=== PATIENT | male | born 1940 | race Caucasian/White ===

== ENCOUNTER → 2016-05-21 | Outpatient (CLI) | payer BC, OTHER ==
[~2016-05-21] MED LIST: ACET325T30 PO; ARFO15NE NEB; BISA10SU5 PR; BRVIN INH; FINA5TAB PO; IPRASOL4 INH; METO25TA56 PO; MIRT15TA3 PO; MOML PO; OXGN; PRED1SUS3 OPL; SODIENE PR; SPRIN/30 INH; TAMS0.4C38 PO; TIOTCAP INH; [UNRECOGNIZED DRUG - OTHER] PO
[2016-05-21 08:55] LABS: URINE APPEARANCE TURBID (CLEAR); URINE BILIRUBIN NEG (NEG); URINE COLOR DK YELLOW; URINE NITRITE POS (NEG); URINE SPECIFIC GRAVITY 1.018 (1.000-1.030); UROBILINOGEN NEG (NEG)
[2016-05-21 08:59] LABS: MANUAL MICROSCOPIC REQUIRED? NO; REVIEW REQ? YES
[2016-05-21 09:32] LABS: URINE EPITHELIAL CELL AUTO 0-5 /lpf (0-5)
== END ==
LOC: C.LABCC 08:16
PROVIDERS: ATTEND Internal Medicine
DX: R41.82 Altered mental status, unspecified (principal)

== ENCOUNTER → 2016-06-04 | Outpatient (CLI) | payer BC, OTHER ==
[2016-06-04 18:56] LABS: URINE APPEARANCE TURBID (CLEAR); URINE BILIRUBIN NEG (NEG); URINE COLOR RED; URINE EPITHELIAL CELL AUTO >30 /lpf (0-5); URINE NITRITE NEG (NEG); URINE SPECIFIC GRAVITY 1.012 (1.000-1.030); UROBILINOGEN NEG (NEG)
[2016-06-04 19:01] LABS: MANUAL MICROSCOPIC REQUIRED? NO; REVIEW REQ? YES
== END ==
LOC: C.LABCC 17:55
PROVIDERS: ATTEND Internal Medicine
DX: R41.82 Altered mental status, unspecified (principal)

== ENCOUNTER 2016-06-15 17:52 | Inpatient (IN) | payer BC, OTHER ==
[2016-06-15] VITALS (7 sets, daily range): BP systolic 90; BP diastolic 57; PULSE 98–123; O2SAT 95–98
[~2016-06-15] VITALS: Ht 165.1 cm; Wt 46.1 kg
[~2016-06-15 17:52] MED LIST changes: -ARFO15NE NEB; -BISA10SU5 PR; -MOML PO; -PRED1SUS3 OPL; -SODIENE PR; -SPRIN/30 INH
[2016-06-15] MEDS ORDERED: SODIUM CHLORIDE 0.9% 1000ML 1,000 ML IV STA ×3 (18:02→18:27)
[2016-06-15] MEDS ORDERED: XYLOCAINE 1%/SOD BICARB 20 ML VIAL INFIL ONE (18:06)
--- NOTE | 2016-06-15 18:10 | DIAGNOSTIC IMAGING REPORT ---
SINGLE VIEW CHEST CLINICAL HISTORY: Dyspnea. FINDINGS: An AP, portable, upright chest radiograph is compared to study dated 09/09/2015 and correlated with chest CT dated 05/19/2014. The examination is degraded by portable technique and patient rotation. The cardiomediastinal silhouette is unremarkable. There is atherosclerotic calcification of the thoracic aorta. Advanced emphysema is identified. Large blebs are noted in the upper lobes, right greater than left. This is similar to previous. Suture material projects over the left upper lobe. Patchy airspace consolidation is identified at the medial right lung base. There is chronic elevation of left hemidiaphragm with left basilar atelectasis. Biapical scarring is observed. No pneumothorax is seen. The skeletal structures are osteopenic. The bony thorax is grossly intact. Chronic calcifications are again seen projecting over the right humeral shaft. IMPRESSION: 1. There is patchy airspace consolidation at the right lung base, likely representing an infectious/inflammatory pneumonitis. Clinical correlation will be required. Radiographic follow-up to resolution is recommended. 2. Advanced emphysema. Electronically signed by: Raz Lezama M.D. 06/15/2016 6:08 PM Dictated Date/Time: 06/15/2016 6:06 PM
[2016-06-15] MEDS ORDERED: PIPERACILLIN/TAZOBACTAM 4.5 GM/100ML D5W IV STA (18:11)
[2016-06-15] MEDS ORDERED: ALBUTEROL 0.083% NEBU SOLN 3 ML VIAL INH STA (18:11)
[2016-06-15] MEDS ORDERED: METHYLPREDNISOLONE 125 MG VIAL IV STA (18:13)
[2016-06-15] MEDS ORDERED: VANCOMYCIN INJ 1,000 MG in SODIUM CHLORIDE 0.9% 250ML 250 ML IV STA (18:27)
[2016-06-15 18:59] LABS: HEMATOCRIT 35.4 % (42-52); MEAN CELL VOLUME 88.3 fL (80-100); MEAN CORPUSCULAR HEMOGLOBIN 28.7 pg (25-34); MEAN CORPUSCULAR HGB CONC 32.5 g/dl (32-36); PLATELET COUNT 247 K/uL (130-400); RED BLOOD COUNT 4.01 M/uL (4.7-6.1); WHITE BLOOD COUNT 20.86 K/uL (4.8-10.8)
[2016-06-15 19:07] LABS: VEN BLOOD GAS BASE EXCESS -4.1 mmol/L; VENOUS BLOOD GAS PCO2 53 mmHg (38.0-50.0); VENOUS BLOOD GAS PO2 28 mmHg
[2016-06-15 19:08] LABS: VEN BLD GAS O2 SATURATION < 60.0 %
[2016-06-15 19:09] LABS: INR 1.2 (0.9-1.1); PARTIAL THROMBOPLASTIN RATIO 1.1; PROTHROMBIN TIME (PATIENT) 12.6 SECONDS (9.0-12.0)
[2016-06-15] MEDS ORDERED: ARFO15NE NEB (19:12)
[2016-06-15] MEDS ORDERED: PRED1SUS3 OPL (19:12)
[2016-06-15] MEDS ORDERED: SPRIN/30 INH (19:12)
[2016-06-15] MEDS ORDERED: SODIENE PR (19:12)
[2016-06-15] MEDS ORDERED: MOML PO (19:12)
[2016-06-15] MEDS ORDERED: BISA10SU5 PR (19:12)
[2016-06-15] MEDS ORDERED: ASPIRIN 300 MG SUPP PR PRN (19:15)
[2016-06-15 19:19] LABS: ALB/GLOB RATIO 0.6 (0.9-2); ALKALINE PHOSPHATASE 160 U/L (45-117); ALT/SGPT 7 U/L (12-78); AST/SGOT 11 U/L (15-37); BASO % 0.1 %; BASO ABS # 0.02 K/uL (0-0.2); BLOOD UREA NITROGEN 57 mg/dl (7-18); BUN/CREATININE RATIO 40.4 (10-20); CARBON DIOXIDE 26 mmol/L (21-32); CHLORIDE 101 mmol/L (98-107); COMPLETE YES; ECHINOCYTES 2+; GLUCOSE 154 mg/dl (70-99); IG% 0.4 %; LYMPH % 4.5 %; LYMPH ABS # 0.94 K/uL (1.2-3.4); MONO % 8.1 %; NEUT % 86.9 %; POTASSIUM 4.1 mmol/L (3.5-5.1); SODIUM 139 mmol/L (136-145)
[2016-06-15] MEDS ORDERED: VANCOMYCIN 1GM/270ML NSS ONE (19:21)
[2016-06-15] MEDS ORDERED: NITROGLYCERIN 0.4 MG SL PER TAB CHARGE SL PRN (19:45)
[2016-06-15] MEDS ORDERED: LORAZEPAM 0.5 MG TAB PO PRN (19:45)
[2016-06-15] MEDS ORDERED: ACETAMINOPHEN 325 MG TAB PO PRN (19:45)
[2016-06-15 20:09] LABS: URINE APPEARANCE CLOUDY (CLEAR); URINE BILIRUBIN NEG (NEG); URINE COLOR YELLOW; URINE EPITHELIAL CELL AUTO >30 /lpf (0-5); URINE NITRITE NEG (NEG); URINE SPECIFIC GRAVITY 1.018 (1.000-1.030); UROBILINOGEN NEG (NEG)
[2016-06-15 20:10] LABS: MANUAL MICROSCOPIC REQUIRED? NO; REVIEW REQ? YES
--- NOTE | 2016-06-15 20:49 | History and Physical ---
History & Physical Date & Time of Service: Jun 15, 2016 at 20:32 Chief Complaint: SOB Primary Care Physician: Deidra Gatica History of Present Illness Source: patient 76 y/o M w/Hx advanced COPD, neurofibromatosis, BPH w/retention and chronic Juares. Presents from a nursing facility with a CC of SOB. Pt was notably hypoxic, hypotensive and lethargic on arrival to the ER. He required Bipap to maintain oxygenation. Initial CXR is consistent with a RLL pneumonia. His BP did respond to IVF however he appears progressively lethargic and will be transferred to the ICU for further management. He is awake and nods his head but is otherwise unable to contribute to the HPI/ROS at the time of admission. Initial labs reveal leukocytosis and ARF. ABG reveals mixed acidosis. Past Medical/Surgical History Medical Problems: (1) Enlarged prostate Status: Chronic (2) Neurofibromatosis, Unspecified Status: Chronic (3) Personal History Of Poliomyelitis Status: Resolved 4) Advanced COPD 5) Pneumothorax 6) Urinary retention with a Chronic Juares 7) L VATS and pleurodesis 04/16 8) R eye cataract surgery 9) Pancreatic mass 10/14 biopsy revealed benign pathology Family History Heart disease Social History Smoking Status: Former Smoker Drug Use: none Marital Status: single Housing status: lives alone Occupational Status: retired Multi-Drug Resistant Organisms History of MDRO: No Allergies Coded Allergies: No Known Allergies (Verified , 06/15/16) Home Medications Scheduled Arformoterol Tartrate (Brovana), 1 VIAL NEB BID Metoprolol Tartrate (Lopressor) (Lopressor), 12.5 MG PO QAM Mirtazapine (Remeron), 7.5 MG PO HS Prednisolone Acetate (Ophth) (Pred Forte 1% Oph), 1 DROPS OPL BID Tiotropium Orange (Spiriva Handihaler), 1 CAP INH DAILY Scheduled PRN Acetaminophen (Acetaminophen), 2 TAB PO Q6 PRN for Pain or Fever Bisacodyl (Bisacodyl), 1 SUPP UT UD PRN for Constipation Magnesium Hydroxide (Milk Of Magnesia), 30 ML PO UD PRN for Constipation Sodium Phosphate/Biphosphate (Fleet Enema), 1 EA UT UD PRN for Constipation Review of Systems C/O SOB prior to arrival - unable to reliably obtain a ROS at present Respiratory: + dyspnea at rest, + dyspnea on exertion, + shortness of breath, + wheezing Physical Exam Vital Signs Date Time Temp Pulse Resp B/P Pulse Ox O2 Delivery O2 Flow Rate FiO2 06/15/16 20:06 117 22 103/63 96 BiPAP 06/15/16 19:46 119 24 105/68 96 BiPAP 06/15/16 19:00 125 22 103/100 96 Ambu-Bag 06/15/16 18:53 124 22 99/66 96 BiPAP 06/15/16 18:37 123 96 50 06/15/16 18:35 123 18 96 BiPAP/CPAP 50 06/15/16 18:05 96 Non-Rebreather 15.0 06/15/16 18:02 136 06/15/16 17:51 83 Room Air 06/15/16 17:51 36.8 135 32 111/67 94 Non-Rebreather 15.0 General Appearance: + pertinent finding (Lethargic, poorly nourished, elderly male - no apparent distress on an NRB) Head: normocephalic Eyes: normal inspection, PERRL, EOMI ENT: normal ENT inspection, pharynx normal Neck: supple, no adenopathy, + JVD (Impressive b/l JVD) Respiratory/Chest: chest non-tender, + pertinent finding (Very poor b/l air entry - cannnot appreciate air movemtn on L base) Cardiovascular: no edema, no gallop, + JVD, + tachycardia, + systolic murmur Abdomen/GI: normal bowel sounds, non tender, soft Back: normal inspection, no CVA tenderness Extremities/Musculoskelatal: normal inspection, no calf tenderness, normal capillary refill, no pedal edema, normal range of motion Neurologic/Psych: + disoriented, + pertinent finding (Pt is lethargic without unilateral or focal defecits) Skin: normal color, warm/dry Diagnostics Laboratory Results Results Past 24 Hours Test 06/15/16 18:33 06/15/16 18:42 06/15/16 19:50 Range/Units White Blood Count 20.86 4.8-10.8 K/uL Red Blood Count 4.01 4.7-6.1 M/uL Hemoglobin 11.5 14.0-18.0 g/dL Hematocrit 35.4 42-52 % Mean Corpuscular Volume 88.3 80-100 fL Mean Corpuscular Hemoglobin 28.7 25-34 pg Mean Corpuscular Hemoglobin Concent 32.5 32-36 g/dl Platelet Count 247 130-400 K/uL Mean Platelet Volume 9.0 7.4-10.4 fL Neutrophils (%) (Auto) 86.9 % Lymphocytes (%) (Auto) 4.5 % Monocytes (%) (Auto) 8.1 % Eosinophils (%) (Auto) 0.0 % Basophils (%) (Auto) 0.1 % Neutrophils # (Auto) 18.11 1.4-6.5 K/uL Lymphocytes # (Auto) 0.94 1.2-3.4 K/uL Monocytes # (Auto) 1.70 0.11-0.59 K/uL Eosinophils # (Auto) 0.01 0-0.5 K/uL Basophils # (Auto) 0.02 0-0.2 K/uL RDW Standard Deviation 53.7 36.4-46.3 fL RDW Coefficient of Variation 16.6 11.5-14.5 % Immature Granulocyte % (Auto) 0.4 % Immature Granulocyte # (Auto) 0.08 0.00-0.02 K/uL Echinocytes 2+ Prothrombin Time 12.6 9.0-12.0 SECONDS Prothromb Time International Ratio 1.2 0.9-1.1 Activated Partial Thromboplast Time 28.9 21.0-31.0 SECONDS Partial Thromboplastin Ratio 1.1 Sodium Level 139 136-145 mmol/L Potassium Level 4.1 3.5-5.1 mmol/L Chloride Level 101 98-107 mmol/L Carbon Dioxide Level 26 21-32 mmol/L Anion Gap 12.0 3-11 mmol/L Blood Urea Nitrogen 57 7-18 mg/dl Creatinine 1.40 0.60-1.40 mg/dl Est Creatinine Clear Calc Drug Dose 30.5 ml/min Estimated GFR () 56.2 Estimated GFR (Non- 48.5 BUN/Creatinine Ratio 40.4 10-20 Random Glucose 154 70-99 mg/dl Calcium Level 8.0 8.5-10.1 mg/dl Total Bilirubin 1.1 0.2-1 mg/dl Aspartate Amino Transf (AST/SGOT) 11 15-37 U/L Alanine Aminotransferase (ALT/SGPT) 7 12-78 U/L Alkaline Phosphatase 160 45-117 U/L Troponin I < 0.015 0-0.045 ng/ml Pro-B-Type Natriuretic Peptide 2200 0-1800 pg/ml Total Protein 6.6 6.4-8.2 gm/dl Albumin 2.4 3.4-5.0 gm/dl Globulin 4.2 2.5-4.0 gm/dl Albumin/Globulin Ratio 0.6 0.9-2 Venous Blood pH 7.26 7.36-7.41 Venous Blood Partial Pressure CO2 53 38.0-50.0 mmHg Venous Blood Partial Pressure O2 28 mmHg Venous Blood HCO3 23 mmol/L Venous Blood Oxygen Saturation < 60.0 % Venous Blood Base Excess -4.1 mmol/L Urine Color YELLOW Urine Appearance CLOUDY CLEAR Urine pH 5.0 4.5-7.5 Urine Specific [place] 1.018 1.000-1.030 Urine Protein NEG NEG Urine Glucose (UA) NEG NEG Urine Ketones NEG NEG Urine Occult Blood 2+ NEG Urine Nitrite NEG NEG Urine Bilirubin NEG NEG Urine Urobilinogen NEG NEG Urine Leukocyte Esterase MODERATE NEG Urine WBC (Auto) 10-30 0-5 /hpf Urine RBC (Auto) 5-10 0-4 /hpf Urine Hyaline Casts (Auto) 1-5 0-5 /lpf Urine Epithelial Cells (Auto) >30 0-5 /lpf Urine Bacteria (Auto) NEG NEG Urine Renal Epithelial Cells 0-5 /lpf Urine Yeast (Auto) BUDDING NONE PRSENT Diagnostic Radiology 1. There is patchy airspace consolidation at the right lung base, likely representing an infectious/inflammatory pneumonitis. Clinical correlation will be required. Radiographic follow-up to resolution is recommended. 2. Advanced emphysema. EKG sinus tach - low voltage Impression Assessment and Plan 76 y/o M w/Hx advanced COPD, neurofibromatosis, BPH w/retention and chronic Juares. Presents from a nursing facility with a CC of SOB. Pt was notably hypoxic, hypotensive and lethargic on arrival to the ER. He required Bipap to maintain oxygenation. Initial CXR is consistent with a RLL pneumonia. His BP did respond to IVF however he appears progressively lethargic and will be transferred to the ICU for further management. He is awake and nods his head but is otherwise unable to contribute to the HPI/ROS at the time of admission. Initial labs reveal leukocytosis and ARF. ABG reveals acidosis - mostly respiratory. 1) Pneumonia, - hypoxia and possible sepsis - Pt was hypotensive on arrival and initially has responded to an IVF bolus. He has underlying advanced COPD and a low reserve. We have placed him on sepsis coverage pending cultures and he will be transferred to the ICU. Pt is on Bipap on admission. 2) Advanced COPD - Due to his hypoxia and low reserve we will treat for exacerbation - provided with nebs and steroids. 3) Hypotension - Pt is clinically dehydrated and may be septic. Clinically however he has impressive JVD and his EKG is low voltage compared to previous. We will obtain a CT chest as he has a history of blebs and pneumothorax - we may need an urgent echo if hypotension recurs to evaluate for tamponade. 4) BPH - retention - Juares in place - UA results pending 5) ARF - suspect prerenal - IVF and trend BMP DNR/DNI confirmed with previous records and next of kin - Heparin prophylaxis Discussed with listed next of kin who pt refers to as daughter - however they are not technically related Total time for this admit including review of labs, records, imaging, EKG - discussion with pt/contact, mural painter and ER MD - includes critical care time 55 min Level of Care Critical Care Resuscitation Status DO NOT RESUSCITATE VTE Prophylaxis VTE Risk Assessment Done? Y/N: Yes Risk Level: Moderate Given or contraindicated: Unfractionated heparin SQ
[2016-06-15] MEDS ORDERED: VANCOMYCIN INJ 1,000 MG in SODIUM CHLORIDE 0.9% 250ML 250 ML IV SCH (21:00)
[2016-06-15] MEDS ORDERED: PIPERACILL/TAZOBAC CONSULT ACTIVE PRN (21:15)
[2016-06-15] MEDS ORDERED: ALBUTEROL 0.083% NEBU SOLN 3 ML VIAL INH PRN (21:15)
[2016-06-15] MEDS ORDERED: VANCOMYCIN CONSULT ACTIVE PRN (21:15)
[2016-06-15] MEDS: ALBUT/IPRATROP 3MG/0.5MG NEB 3 ML VIAL INH SCH (21:28)
[2016-06-15] MEDS: SODIUM CHLORIDE 0.9% 1000ML 1,000 ML IV SCH (21:47)
[2016-06-15] MEDS: AZITHROMYCIN IV 500 MG in DEXTROSE 5% 250ML 250 ML IV SCH (21:47)
--- NOTE | 2016-06-15 22:28 | DIAGNOSTIC IMAGING REPORT ---
CT SCAN OF THE CHEST WITHOUT IV CONTRAST CLINICAL HISTORY: Dyspnea. COMPARISON STUDY: Chest x-ray dated 06/15/2016. Chest CT dated 05/19/2014. TECHNIQUE: CT scan of the thorax was performed from the thoracic inlet to the upper abdomen. Images are reviewed in the axial, sagittal, and coronal planes. IV contrast was not administered for this examination as per the front clinician. The examination is significantly degraded by motion artifact, as well as by streak artifact from the patient's arms which could not be elevated above the chest. CT DOSE: 291.65 mGy.cm FINDINGS: Thyroid: Atrophic. Thoracic aorta: The thoracic aorta is normal in caliber and demonstrates standard 3-vessel arch anatomy. Heart: The heart is normal in size noting a small pericardial effusion. The coronary arteries are densely calcified. Lungs and pleural spaces: Advanced emphysema is identified and there is apical bullous change, right greater than left. There are small pleural effusions with patchy bibasilar airspace consolidation, right greater than left. Fluid/debris is noted within the lower lobe airways. Layering fluid is seen in the distal trachea and the mainstem bronchi. Mediastinum: There are scattered mediastinal lymph nodes. Some of these contain coarse calcifications, likely related to remote granulomas infection.. Tena: Not all assessed without IV contrast. There are calcified right hilar lymph nodes. Axillae: There is no axillary lymphadenopathy. Upper abdomen: Intrahepatic biliary ductal dilatation is similar to prior studies. A structure that likely represents a markedly abnormal gallbladder is partially imaged below the liver. Surrounding inflammatory stranding is suggested. Skeletal structures: The skeletal structures are osteopenic. Mild degenerative changes noted throughout the thoracic spine. Chronic changes are again noted in the right humeral shaft. No lytic or blastic bony lesions are seen. Soft tissues: The patient is cachectic. IMPRESSION: 1. Significantly streak and motion artifact degraded examination. 2. Advanced emphysema. 3. There are small pleural effusions with bibasilar airspace consolidation, right greater than left. The appearance is typical for pneumonia/aspiration pneumonitis. Clinical correlation will be required. 4. Fluid/debris is present within the lower lobe airways, and there is layering fluid within the trachea and mainstem bronchi. The appearance is highly concerning for aspiration. 5. A markedly abnormal gallbladder is suggested with surrounding inflammatory change. This is only partially imaged. Correlation with clinical findings and serum bilirubin levels will be required. Follow-up with a right upper quadrant ultrasound is recommended. 6. Additional findings as above. Electronically signed by: Raz Lezama M.D. 06/15/2016 10:26 PM Dictated Date/Time: 06/15/2016 10:18 PM
--- NOTE | 2016-06-15 22:28 | EMERGENCY ROOM VISIT NOTE ---
History Report prepared by Butch: Jeni Keyes Under the Supervision of: Violeta SantosO. First contact with patient: 17:47 Chief Complaint: RESPIRATORY PROBLEMS Stated Complaint: SOB Nursing Triage Summary: patient presents via [facility] with sob and cough patient has reportedly not been feeling well for the last two days denies chest pain right sided breath sounds absent, left sided coarse rhonchi History of Present Illness The patient is a 76 year old male who presents to the Emergency Room with complaints of worsening respiratory problems for the past 3 days. He reports a productive cough and states that he feels very short of breath. He states, "I feel like I can't catch my breath." He also notes that he has been feeling weak for the past few days. The patient denies chest pain, nausea, vomiting, fever, and urinary symptoms. The patient is a resident at [facility]. Today the patient was found to be tachycardic and hypotensive, and he was brought to the ED by ambulance. EMS states that the patient is typically on 4L of O2 but he was desaturating into the 70s, so they increased his oxygen. He was also given fluids, Solu-Medrol, albuterol, and a DuoNeb. Source of History: patient, snf notes, EMS Onset: 3 days ago Position: chest (respiratory) Quality: other (short of breath) Timing: worsening Modifying Factors (Relieving): oxygen Associated Symptoms: + cough, + weakness, No chest pain, No fevers, No nausea, No urinary symptoms, No vomiting Review of Systems See HPI for pertinent positives & negatives. A total of 10 systems reviewed and were otherwise negative. Past Medical & Surgical Medical Problems: (1) Enlarged prostate (2) Neurofibromatosis, Unspecified (3) Personal History Of Poliomyelitis (4) Pneumonia (5) worsening sob, and urinary retention (6) worsening sob, and urinary retention Family History Heart disease Social History Smoking Status: Former Smoker Alcohol Use: none Drug Use: none Marital Status: single Housing Status: lives alone Occupation Status: retired Current/Historical Medications Scheduled Arformoterol Tartrate (Brovana), 1 VIAL NEB BID Metoprolol Tartrate (Lopressor) (Lopressor), 12.5 MG PO QAM Mirtazapine (Remeron), 7.5 MG PO HS Prednisolone Acetate (Ophth) (Pred Forte 1% Oph), 1 DROPS OPL BID Tiotropium [place] (Spiriva Handihaler), 1 CAP INH DAILY Scheduled PRN Acetaminophen (Acetaminophen), 2 TAB PO Q6 PRN for Pain or Fever Bisacodyl (Bisacodyl), 1 SUPP HI UD PRN for Constipation Magnesium Hydroxide (Milk Of Magnesia), 30 ML PO UD PRN for Constipation Sodium Phosphate/Biphosphate (Fleet Enema), 1 EA HI UD PRN for Constipation Allergies Coded Allergies: No Known Allergies (Verified , 06/15/16) Physical Exam Vital Signs Date Time Temp Pulse Resp B/P Pulse Ox O2 Delivery O2 Flow Rate FiO2 06/15/16 20:06 117 22 103/63 96 BiPAP 06/15/16 19:46 119 24 105/68 96 BiPAP 06/15/16 19:00 125 22 103/100 96 Ambu-Bag 06/15/16 18:53 124 22 99/66 96 BiPAP 06/15/16 18:37 123 96 50 06/15/16 18:35 123 18 96 BiPAP/CPAP 50 06/15/16 18:05 96 Non-Rebreather 15.0 06/15/16 18:02 136 06/15/16 17:51 83 Room Air 06/15/16 17:51 36.8 135 32 111/67 94 Non-Rebreather 15.0 Physical Exam GENERAL: alert, ill appearing, cachetic, on non-rebreather, malnourished, significant distress EYE EXAM: normal conjunctiva OROPHARYNX: no exudate, no erythema, lips, buccal mucosa, and tongue normal and mucous membranes are moist NECK: supple, no nuchal rigidity, no adenopathy, non-tender LUNGS: Lung sounds diminished on the right side, rhonchi in the left lower lobe. Normal chest wall mechanics HEART: no murmurs, S1 normal and S2 normal ABDOMEN: abdomen soft, non-tender, normo-active bowel sounds, no masses, no rebound or guarding. BACK: Back is symmetrical on inspection and there is no deformity, no midline tenderness, no CVA tenderness. SKIN: no rashes and no bruising UPPER EXTREMITIES: upper extremities are grossly normal. LOWER EXTREMITIES: No pitting edema. Calves equal bilaterally. NEURO EXAM: Awake, alert, oriented to person but not place. Cranial nerves II- XII grossly intact, normal speech, no gross weakness of arms, no gross weakness of legs. Medical Decision & Procedures ER Provider Diagnostic Interpretation: A repeat ECG reveals sinus tachy at 133 but it has improved from previous. Radiology results as stated below per my review and the radiologist's interpretation: SINGLE VIEW CHEST CLINICAL HISTORY: Dyspnea. FINDINGS: An AP, portable, upright chest radiograph is compared to study dated 09/09/2015 and correlated with chest CT dated 05/19/2014. The examination is degraded by portable technique and patient rotation. The cardiomediastinal silhouette is unremarkable. There is atherosclerotic calcification of the thoracic aorta. Advanced emphysema is identified. Large blebs are noted in the upper lobes, right greater than left. This is similar to previous. Suture material projects over the left upper lobe. Patchy airspace consolidation is identified at the medial right lung base. There is chronic elevation of left hemidiaphragm with left basilar atelectasis. Biapical scarring is observed. No pneumothorax is seen. The skeletal structures are osteopenic. The bony thorax is grossly intact. Chronic calcifications are again seen projecting over the right humeral shaft. IMPRESSION: 1. There is patchy airspace consolidation at the right lung base, likely representing an infectious/inflammatory pneumonitis. Clinical correlation will be required. Radiographic follow-up to resolution is recommended. 2. Advanced emphysema. Electronically signed by: Raz Lezama M.D. 06/15/2016 6:08 PM Dictated Date/Time: 06/15/2016 6:06 PM Laboratory Results 06/15/16 18:33 Red Blood Count 4.01, Mean Corpuscular Volume 88.3, Mean Corpuscular Hemoglobin 28.7, Mean Corpuscular Hemoglobin Concent 32.5, Mean Platelet Volume 9.0, Neutrophils (%) (Auto) 86.9, Lymphocytes (%) (Auto) 4.5, Monocytes (%) (Auto) 8.1, Eosinophils (%) (Auto) 0.0, Basophils (%) (Auto) 0.1, Neutrophils # (Auto) 18.11, Lymphocytes # (Auto) 0.94, Monocytes # (Auto) 1.70, Eosinophils # (Auto) 0.01, Basophils # (Auto) 0.02 06/15/16 18:33 Test 06/15/16 18:33 06/15/16 19:50 White Blood Count 20.86 K/uL (4.8-10.8) Red Blood Count 4.01 M/uL (4.7-6.1) Hemoglobin 11.5 g/dL (14.0-18.0) Hematocrit 35.4 % (42-52) Mean Corpuscular Volume 88.3 fL (80-100) Mean Corpuscular Hemoglobin 28.7 pg (25-34) Mean Corpuscular Hemoglobin Concent 32.5 g/dl (32-36) Platelet Count 247 K/uL (130-400) Mean Platelet Volume 9.0 fL (7.4-10.4) Neutrophils (%) (Auto) 86.9 % Lymphocytes (%) (Auto) 4.5 % Monocytes (%) (Auto) 8.1 % Eosinophils (%) (Auto) 0.0 % Basophils (%) (Auto) 0.1 % Neutrophils # (Auto) 18.11 K/uL (1.4-6.5) Lymphocytes # (Auto) 0.94 K/uL (1.2-3.4) Monocytes # (Auto) 1.70 K/uL (0.11-0.59) Eosinophils # (Auto) 0.01 K/uL (0-0.5) Basophils # (Auto) 0.02 K/uL (0-0.2) RDW Standard Deviation 53.7 fL (36.4-46.3) RDW Coefficient of Variation 16.6 % (11.5-14.5) Immature Granulocyte % (Auto) 0.4 % Immature Granulocyte # (Auto) 0.08 K/uL (0.00-0.02) Echinocytes 2+ Prothrombin Time 12.6 SECONDS (9.0-12.0) Prothromb Time International Ratio 1.2 (0.9-1.1) Activated Partial Thromboplast Time 28.9 SECONDS (21.0-31.0) Partial Thromboplastin Ratio 1.1 Anion Gap 12.0 mmol/L (3-11) Est Creatinine Clear Calc Drug Dose 30.5 ml/min Estimated GFR () 56.2 Estimated GFR (Non- 48.5 BUN/Creatinine Ratio 40.4 (10-20) Calcium Level 8.0 mg/dl (8.5-10.1) Total Bilirubin 1.1 mg/dl (0.2-1) Aspartate Amino Transf (AST/SGOT) 11 U/L (15-37) Alanine Aminotransferase (ALT/SGPT) 7 U/L (12-78) Alkaline Phosphatase 160 U/L (45-117) Troponin I < 0.015 ng/ml (0-0.045) Pro-B-Type Natriuretic Peptide 2200 pg/ml (0-1800) Total Protein 6.6 gm/dl (6.4-8.2) Albumin 2.4 gm/dl (3.4-5.0) Globulin 4.2 gm/dl (2.5-4.0) Albumin/Globulin Ratio 0.6 (0.9-2) Urine Color YELLOW Urine Appearance CLOUDY (CLEAR) Urine pH 5.0 (4.5-7.5) Urine Specific [place] 1.018 (1.000-1.030) Urine Protein NEG (NEG) Urine Glucose (UA) NEG (NEG) Urine Ketones NEG (NEG) Urine Occult Blood 2+ (NEG) Urine Nitrite NEG (NEG) Urine Bilirubin NEG (NEG) Urine Urobilinogen NEG (NEG) Urine Leukocyte Esterase MODERATE (NEG) Urine WBC (Auto) 10-30 /hpf (0-5) Urine RBC (Auto) 5-10 /hpf (0-4) Urine Hyaline Casts (Auto) 1-5 /lpf (0-5) Urine Epithelial Cells (Auto) >30 /lpf (0-5) Urine Bacteria (Auto) NEG (NEG) Urine Renal Epithelial Cells /lpf (0-5) Urine Yeast (Auto) BUDDING (NONE PRSENT) Laboratory results per my review. Medications Administered Medications (Trade) Dose Ordered Sig/Anjum Route Start Time Stop Time Status Last Admin Dose Admin Sodium Chloride 1,000 ml @ 999 mls/hr Q1H1M STAT IV 06/15/16 18:02 06/15/16 19:02 DC 06/15/16 18:23 999 MLS/HR Sodium Chloride (Nss 1000ml) 1,000 ml @ 999 mls/hr Q1H1M STAT IV 06/15/16 18:11 06/15/16 19:11 DC 06/15/16 18:23 999 MLS/HR Piperacillin Sod/ Tazobactam Sod (Zosyn Iv) 4.5 gm NOW STAT IV 06/15/16 18:11 06/15/16 18:12 DC 06/15/16 18:51 4.5 GM Albuterol Sulfate (Ventolin 0.083% 2.5MG/3ML Neb) 5 mg NOW STAT INH 06/15/16 18:11 06/15/16 18:12 DC 06/15/16 18:34 5 MG Methylprednisolone Sodium Succinate 125 mg 125 mg NOW STAT IV 06/15/16 18:13 06/15/16 18:14 DC 06/15/16 18:28 125 MG Sodium Chloride (Nss 1000ml) 1,000 ml @ 999 mls/hr Q1H1M STAT IV 06/15/16 18:27 06/15/16 19:27 DC 06/15/16 19:25 999 MLS/HR Aspirin (Aspirin Supp) 300 mg ONE PRN HI 06/15/16 19:15 06/15/16 21:04 DC 06/15/16 19:25 300 MG Vancomycin HCl (Vancomycin 1gm/ 270ml Nss) 1 gm STK-MED ONCE .ROUTE 06/15/16 19:21 06/15/16 19:22 DC 06/15/16 19:24 1 GM ECG Indication: SOB/dyspnea Rate (beats per minute): 135 Rhythm: sinus tachycardia Findings: Q waves (Inferior), ST depression (Anterior), ST elevation (Inferior) Comparison ECG Date: 09/09/2015 Change: Elevations and depressions are new. ED Course ED COURSE: Vital signs were reviewed and showed hypoxic, tachycardic, hypothermic. The patients medical record was reviewed The above diagnostic studies were performed and reviewed. ED treatments and interventions as stated above. 1748: The patient was evaluated in room B1. A complete history and physical examination was performed. 1802: NSS 1000 ml @ 999 mls/hr IV 180: I updated the patient on the results. 181: Albuterol sulfate 5 mg INH, Zosyn 4.5 gm IV, NSS 1000 ml @ 999 mls/hr IV 181: I spoke with Dr. Virk of cardiology. We discussed the patient's case. He felt that the patient does not need a cath and recommended to treat him medically at this time. 1813: Solu-Medrol 125 mg IV 1827: Vancomycin HCl 1000 mg/Sodium Chloride 270 ml @ 125 mls/hr IV, NSS 1000 ml @ 999 mls/hr IV 1832: The patient is current on BiPAP. He is doing better and I updated him at this time. 1914: Aspirin 300 mg HI 1916: Upon reevaluation, the patient is doing well. I discussed my findings with the patient and he understands and agrees with the treatment plan. Based on the patients age, coexisting illnesses, exam and lab findings the decision to treat as an inpatient was made. The patient remained stable while under my care. The patient will be evaluated for further management. 1930: I spoke with Dr. Ayala. We discussed the patients results and treatment plan. The patient will be evaluated by the [facility] for further management. Medical Decision Differential diagnosis: Etiologies such as viral syndrome, otitis, pharyngitis, pneumonia, influenza, meningitis, urinary tract infection, sepsis, bacteremia, as well as others were entertained. Patient is a 76-year-old male who is brought in from the snf for shortness of breath associated with a productive cough which has been worsening over the past 4 days. He denies any chest pain. He was placed on nonrebreather as he was hypoxic in the 70s. Heart rate was in the 130s. Breath sounds are extremity diminished/absent on the right chest. Stat x-ray was ordered and performed following bedside ultrasound which showed lung sliding on the right. Bedside ultrasound also showed no obvious large precordial effusion although difficult windows. 2 IVs were established is given 2 L normal saline. Systolic pressures improved significantly in the 80s to low 100s. EKG was obtained and showed a inferior STEMI. I discussed this with the on-call clinical rn liaison and due to the hypoxia and rapid heart rate he felt that this was likely rate or demand related. I did place the patient on BiPAP and his history rate improved significant. He was monitored closely on BiPAP and his oxygenation improved significantly. Chest x-ray supports pneumonia. Lactate was elevated at 4.5 and he had a significant leukocytosis of 20,000. He was given IV Zosyn and vancomycin. Patient was admitted to internal medicine with respiratory failure and hypoxia secondary to pneumonia. Consults Time Called: 1808 Consulting Physician: Dr. Virk Returned Call: [address] Virk of cardiology. We discussed the patient's case. He felt that the patient does not need a cath and recommended to treat him medically at this time. Additional Consults: Time Called: 1918 Consulted Physician: Dr. Ayala Returned Call: 1930 Additional Comments: I spoke with Dr. Ayala. We discussed the patients results and treatment plan. The patient will be evaluated by the [facility] for further management. Impression Primary Impression: Sepsis Additional Impressions: Pneumonia Respiratory failure with hypoxia Critical Care I have personally spent 75 minutes of critical care time in the direct management of this patient. This includes bedside care, interpretation of diagnostic studies, and testing, discussion with consultants, patient, and family members, and other required patient management activities. This 75 minutes is in excess of all separately billable procedures. Scribe Attestation The scribe's documentation has been prepared under my direction and personally reviewed by me in its entirety. I confirm that the note above accurately reflects all work, treatment, procedures, and medical decision making performed by me. Departure Information Dispostion Being Evaluated By Hospitalist Referrals PerkinsDeidra (PCP) Patient Instructions My [facility] Problem Qualifiers Primary Impression: Sepsis Sepsis type: sepsis due to unspecified organism Qualified Codes: A41.9 - Sepsis, unspecified organism Additional Impressions: Pneumonia Pneumonia type: due to unspecified organism Laterality: right Lung location : unspecified part of lung Qualified Codes: J18.9 - Pneumonia, unspecified organism Respiratory failure with hypoxia Chronicity: acute Qualified Codes: J96.01 - Acute respiratory failure with hypoxia
[2016-06-15 22:42] LABS: IPAP 10; ISTAT ALLEN TEST Pass; ISTAT ARTERIAL BLOOD GAS HCO3 20 meq/L (19-24); ISTAT ARTERIAL BLOOD GAS PCO2 33 mmHg (35-46); ISTAT ARTERIAL BLOOD GAS PO2 78 mmHg (80-95); ISTAT ARTERIAL BLOOD GAS pH 7.39 (7.35-7.45); ISTAT CARBON DIOXIDE 21 mEq/l (24-31); ISTAT DELIVERY SYSTEM BIPAP; ISTAT FIO2 50 %; ISTAT RATE 12; ISTAT SITE R Radial
[2016-06-16] VITALS (20 sets, daily range): BP systolic 85–131; BP diastolic 43–72; PULSE 70–105; TEMP 36–36.6; O2SAT 89–99; Ht 165.1 cm; Wt 46.1 kg
[2016-06-16] MEDS: PIPERACILL/TAZOBAC IV 3.375 GM in DEXTROSE 5% 100ML 100 ML IV SCH ×4 (00:01→23:33)
[2016-06-16] MEDS: METHYLPREDNISOLONE IV 60 MG in SYRINGE 0 ML IV SCH ×5 (00:02→23:33)
[2016-06-16] MEDS: HEPARIN SOD 5000 UNIT/0.5 ML CARP SQ SCH ×2 (00:04→06:11)
[2016-06-16] MEDS ORDERED: SODIUM CHLORIDE 0.9% 500ML 500 ML IV SCH ×2 (01:45→02:45)
[2016-06-16] MEDS ORDERED: DEXTROSE 50% 50 ML SYR IV PRN (02:00)
[2016-06-16] MEDS ORDERED: GLUCOSE 10 TABS/TUBE PO PRN (02:00)
[2016-06-16] MEDS ORDERED: GLUCOSE 40% GEL 15 GM TUBE PO PRN (02:00)
[2016-06-16] MEDS ORDERED: GLUCAGON FOR INJ 1 MG VIAL SQ PRN (02:00)
[2016-06-16] MEDS: INSULIN ASPART 100 UNITS/ML 3 ML PEN SC SCH ×5 (02:27→23:32)
[2016-06-16] MEDS: ALBUT/IPRATROP 3MG/0.5MG NEB 3 ML VIAL INH SCH ×4 (02:43→19:36)
[2016-06-16] MEDS ORDERED: LORAZEPAM 2 MG/ML 1 ML VIAL IV STA (04:01)
[2016-06-16] MEDS ORDERED: LORAZEPAM 2 MG/ML 1 ML VIAL ONE (04:08)
[2016-06-16 05:50] LABS: COMPLETE YES; HEMATOCRIT 28.2 % (42-52); IG% 0.4 %; LYMPH % 2.9 %; MEAN CELL VOLUME 87.3 fL (80-100); MEAN CORPUSCULAR HEMOGLOBIN 28.2 pg (25-34); MEAN CORPUSCULAR HGB CONC 32.3 g/dl (32-36); MEAN PLATELET VOLUME 8.5 fL (7.4-10.4); MONO % 1.5 %; NEUT % 95.2 %; PLATELET COUNT 183 K/uL (130-400); RED BLOOD COUNT 3.23 M/uL (4.7-6.1); WHITE BLOOD COUNT 13.87 K/uL (4.8-10.8)
[2016-06-16] MEDS: SODIUM CHLORIDE 0.9% 1000ML 1,000 ML IV SCH (06:12)
[2016-06-16 06:16] LABS: BUN/CREATININE RATIO 47.5 (10-20); CALCIUM 6.8 mg/dl (8.5-10.1); CREATININE 0.88 mg/dl (0.60-1.40); MAGNESIUM 1.7 mg/dl (1.8-2.4); POTASSIUM 3.2 mmol/L (3.5-5.1)
--- NOTE | 2016-06-16 07:18 | DIAGNOSTIC IMAGING REPORT ---
ABDOMINAL ULTRASOUND, RIGHT UPPER QUADRANT HISTORY: Pain. Nausea. cholecystitis. COMPARISON: CT examination dated 06/15/2016 FINDINGS: Pancreas: Poorly seen overlying bowel content Liver: Diffuse fatty infiltration. Biliary ductal prominence. Gallbladder: Markedly distended with what is potentially hemorrhage within the lumen versus abnormal soft tissue. CBD: 12 mm. Dilatation of the intra and extra hepatic biliary ductal system Right kidney: No hydronephrosis. IMPRESSION: abnormal gallbladder with potential hemorrhage versus abnormal soft tissue within the distended gallbladder lumen. Distended biliary ductal system. A CT study of the abdomen is suggested as follow-up Electronically signed by: Lorenzo Covington M.D. 06/16/2016 7:16 AM Dictated Date/Time: 06/16/2016 7:06 AM
[2016-06-16] MEDS ORDERED: NURSING VERBAL MED ORDER ONE (08:15)
[2016-06-16] MEDS: POTASSIUM CHLR 10MEQ / WTR IV SCH ×4 (08:33→13:25)
[2016-06-16] MEDS: MAGNESIUM SULFATE 1GM / D5W 1 GM in PREMIXED IN D5W 100 ML IV SCH ×2 (08:34→09:59)
[2016-06-16] MEDS ORDERED: FAMOTIDINE 20 MG TAB PO SCH (09:00)
--- NOTE | 2016-06-16 10:02 | Critical Care Consultation ---
Critical Care Consultation Date of Consultation: Jun 16, 2016. Attending Physician: Chas Ayala MD Reason for Consultation: hypoxic resp fail History of Present Illness This is a 76 yo m with a h/o COPD, neurofibromatosis, BPH with retention requiring a chronic vail that is originally from [facility] that is presenting to us after three days of increasing shortness of breath and lethargy. He arrived at the ED with significant Hypoxia, tachy and lethargy. He was placed on a Bipap at 15/50 and vitals did respond to fluids however considering his ongoing lethargy he was sent to the ICU. He was given a total of 5 L of NSS and Zosyn and Vanco was given in the ED. Lactate was 4.6 and 4.1 on the repeat. CXR revealed that the most likely source of infection was a right LL PNA and potentially an aspiration PNA however a USG of the abd revealed a dilated biliary ductal system. Patient was changed from a BIPAP to Venturi Mask overnight because did not tolerate the BIPAP well. He also has his BP being taken from his right thigh because patient is emaciated and unable to get a bp from the UE. A limited history was provided by the patient. Responds to questions appropriately however yes/ no answers typically. Oriented to self and place but not to time. States that he does have a POA named Tisha which is a friend but it is unclear if this is a documented POA. Past Medical/Surgical History COPD Neurofibromatosis BPH Family History Heart disease Social History Smoking Status: Former Smoker Smokeless Tobacco Use: No Alcohol Use: none Drug Use: none Marital Status: single Housing Status: lives alone Occupation Status: retired Allergies Coded Allergies: No Known Allergies (Verified , 06/15/16) Home Medications Scheduled Arformoterol Tartrate (Brovana), 1 VIAL NEB BID Metoprolol Tartrate (Lopressor) (Lopressor), 12.5 MG PO QAM Mirtazapine (Remeron), 7.5 MG PO HS Prednisolone Acetate (Ophth) (Pred Forte 1% Oph), 1 DROPS OPL BID Tiotropium Hamilton (Spiriva Handihaler), 1 CAP INH DAILY Scheduled PRN Acetaminophen (Acetaminophen), 2 TAB PO Q6 PRN for Pain or Fever Bisacodyl (Bisacodyl), 1 SUPP CA UD PRN for Constipation Magnesium Hydroxide (Milk Of Magnesia), 30 ML PO UD PRN for Constipation Sodium Phosphate/Biphosphate (Fleet Enema), 1 EA CA UD PRN for Constipation Current Inpatient Medications Current Inpatient Medications Medications (Trade) Dose Ordered Sig/Anjum Route Start Time Stop Time Status Last Admin Dose Admin Azithromycin/ Dextrose (Zithromax IV/D5 250ml) 255 ml @ 125 mls/hr Q24H IV 06/15/16 21:00 06/22/16 20:59 06/15/16 21:47 125 MLS/HR Acetaminophen (Tylenol Tab) 650 mg Q4H PRN PO 06/15/16 19:45 07/15/16 19:44 Lorazepam (Ativan Tab) 0.5 mg Q4H PRN PO 06/15/16 19:45 07/15/16 19:44 Nitroglycerin (Nitrostat Tab) 0.4 mg UD PRN SL 06/15/16 19:45 07/15/16 19:44 Morphine Sulfate (MoRPHine SULFATE INJ) 2 mg Q2H PRN IV 06/15/16 19:45 06/29/16 19:44 Albuterol/ Ipratropium 3 ml 3 ml Q6R INH 06/15/16 21:00 07/15/16 20:59 06/16/16 07:45 3 ML Piperacillin Sod/ Tazobactam Sod 3.375 gm/Dextrose 115 ml @ 28.75 mls/ hr Q8H IV 06/16/16 00:00 06/23/16 00:00 06/16/16 08:22 28.75 MLS/HR Sodium Chloride (Nss 1000ml) 1,000 ml @ 125 mls/hr Q8H IV 06/15/16 21:15 06/16/16 13:14 06/16/16 06:12 125 MLS/HR Heparin Sodium (Porcine) (Heparin Sq 5000 Unit/0.5ml) 5,000 unit Q8 SQ 06/15/16 22:00 07/15/16 21:59 06/16/16 06:11 5,000 UNIT Albuterol Sulfate (Ventolin 0.083% 2.5MG/3ML Neb) 2.5 mg Q4H PRN INH 06/15/16 21:15 07/15/16 21:14 Piperacillin Sod/ Tazobactam Sod 1 ea 1 ea UD PRN N/A 06/15/16 21:15 07/15/16 21:14 Methylprednisolone Sodium Succinate/ Syringe (Solu-Medrol IV/ Syringe) 0.96 ml @ 1.5 mls/min Q6 IV 06/16/16 00:00 07/16/16 00:00 06/16/16 06:10 1.5 MLS/MIN Insulin Aspart (novoLOG ASPART) SLIDING SCALE G... Q6 SC 06/16/16 01:45 07/16/16 01:44 06/16/16 02:27 3 UNITS Glucose (Glucose 40% Gel) 15-30 GRAMS 15 GRAMS... UD PRN PO 06/16/16 02:00 07/16/16 01:59 Glucose (Glucose Chew Tab) 4-8 Tablets 4 Tabl... UD PRN PO 06/16/16 02:00 07/16/16 01:59 Dextrose (Dextrose 50% 50ML Syringe) 25-50ML OF 50% DW IV FOR... UD PRN IV 06/16/16 02:00 07/16/16 01:59 Glucagon 1 mg 1 mg UD PRN SQ 06/16/16 02:00 07/16/16 01:59 Magnesium Sulfate 1 gm/Prmx 100 ml @ 100 mls/hr Q1H IV 06/16/16 08:15 06/16/16 10:14 06/16/16 08:34 100 MLS/HR Potassium Chloride/Prmx (Kcl 10 Meq / Wtr/Premixed Water) 100 ml @ 100 mls/hr Q1H IV 06/16/16 08:15 06/16/16 12:14 06/16/16 08:33 100 MLS/HR Famotidine (Pepcid Tab) 20 mg BID PO 06/16/16 09:00 07/16/16 08:59 Review of Systems Limited ROS because of limited history Denies any abdominal pain and states that he feels like he is breathing well Respiratory: + cough, + sputum, No shortness of breath Abdomen: + diarrhea (loose stools overnight per RN), No nausea, No pain, No vomiting Physical Exam Date Time Temp Pulse Resp B/P Pulse Ox O2 Delivery O2 Flow Rate FiO2 06/16/16 08:00 93 Venturi Mask 15.0 40 06/16/16 08:00 91 20 117/58 93 Venturi Mask 15.0 40 06/16/16 07:45 86 14 95 Venturi Mask 12.0 40 06/16/16 06:00 80 16 89/43 94 Venturi Mask 15.0 06/16/16 04:01 36.4 86 16 90/49 96 Venturi Mask 15.0 06/16/16 04:00 95 Venturi Mask 15.0 06/16/16 02:43 77 14 95 Venturi Mask 12.0 40 06/16/16 02:00 78 18 86/50 97 Venturi Mask 15.0 06/16/16 00:16 36.4 105 18 94/59 96 BiPAP 50 06/16/16 00:00 36.4 97 21 85/55 96 Venturi Mask 15.0 06/15/16 23:59 95 Venturi Mask 15.0 06/15/16 23:18 98 95 40 06/15/16 23:00 101 19 90/57 98 Venturi Mask 15.0 06/15/16 21:29 107 18 97 BiPAP/CPAP 50 06/15/16 21:20 110 98 50 06/15/16 20:16 119 20 94/59 95 BiPAP 06/15/16 20:06 117 22 103/63 96 BiPAP 06/15/16 19:46 119 24 105/68 96 BiPAP 06/15/16 19:00 125 22 103/100 96 Ambu-Bag 06/15/16 18:53 124 22 99/66 96 BiPAP 06/15/16 18:37 123 96 50 06/15/16 18:35 123 18 96 BiPAP/CPAP 50 06/15/16 18:05 96 Non-Rebreather 15.0 06/15/16 18:02 136 06/15/16 17:51 83 Room Air 06/15/16 17:51 36.8 135 32 111/67 94 Non-Rebreather 15.0 General Appearance: no apparent distress, cachetic Head: normocephalic, atraumatic Eyes: other (right eye is deviated to nasal side however states that this is BL ) ENT: other (ENT inspection WNL except for NF lesions) Neck: normal range of motion, no tenderness Respiratory: other (coarse breath sounds throughout and decreased to bilat bases) Cardiovasular: regular rate/rhythm, normal S1S2, no murmur Abdomen: normal bowel sounds, guarding (RUQ), other (tender to palpation of the RUQ) Genitourinary - Male: other (vail in place) Back: normal inspection Upper Extremities: no edema Lower Extremities: no edema, other (thin) Pulses: dorsalis pedis (R) (1+), dorsalis pedis (L) (1+) Neuro: alert Laboratory Results Last 24 Hours Test 06/15/16 18:33 06/15/16 18:42 06/15/16 19:50 06/15/16 21:19 White Blood Count 20.86 K/uL Red Blood Count 4.01 M/uL Hemoglobin 11.5 g/dL Hematocrit 35.4 % Mean Corpuscular Volume 88.3 fL Mean Corpuscular Hemoglobin 28.7 pg Mean Corpuscular Hemoglobin Concent 32.5 g/dl Platelet Count 247 K/uL Mean Platelet Volume 9.0 fL Neutrophils (%) (Auto) 86.9 % Lymphocytes (%) (Auto) 4.5 % Monocytes (%) (Auto) 8.1 % Eosinophils (%) (Auto) 0.0 % Basophils (%) (Auto) 0.1 % Neutrophils # (Auto) 18.11 K/uL Lymphocytes # (Auto) 0.94 K/uL Monocytes # (Auto) 1.70 K/uL Eosinophils # (Auto) 0.01 K/uL Basophils # (Auto) 0.02 K/uL RDW Standard Deviation 53.7 fL RDW Coefficient of Variation 16.6 % Immature Granulocyte % (Auto) 0.4 % Immature Granulocyte # (Auto) 0.08 K/uL Echinocytes 2+ Prothrombin Time 12.6 SECONDS Prothromb Time International Ratio 1.2 Activated Partial Thromboplast Time 28.9 SECONDS Partial Thromboplastin Ratio 1.1 Sodium Level 139 mmol/L Potassium Level 4.1 mmol/L Chloride Level 101 mmol/L Carbon Dioxide Level 26 mmol/L Anion Gap 12.0 mmol/L Blood Urea Nitrogen 57 mg/dl Creatinine 1.40 mg/dl Est Creatinine Clear Calc Drug Dose 30.5 ml/min Estimated GFR () 56.2 Estimated GFR (Non- 48.5 BUN/Creatinine Ratio 40.4 Random Glucose 154 mg/dl Calcium Level 8.0 mg/dl Total Bilirubin 1.1 mg/dl Aspartate Amino Transf (AST/SGOT) 11 U/L Alanine Aminotransferase (ALT/SGPT) 7 U/L Alkaline Phosphatase 160 U/L Troponin I < 0.015 ng/ml Pro-B-Type Natriuretic Peptide 2200 pg/ml Total Protein 6.6 gm/dl Albumin 2.4 gm/dl Globulin 4.2 gm/dl Albumin/Globulin Ratio 0.6 Venous Blood pH 7.26 Venous Blood Partial Pressure CO2 53 mmHg Venous Blood Partial Pressure O2 28 mmHg Venous Blood HCO3 23 mmol/L Venous Blood Oxygen Saturation < 60.0 % Venous Blood Base Excess -4.1 mmol/L Urine Color YELLOW Urine Appearance CLOUDY Urine pH 5.0 Urine Specific [place] 1.018 Urine Protein NEG Urine Glucose (UA) NEG Urine Ketones NEG Urine Occult Blood 2+ Urine Nitrite NEG Urine Bilirubin NEG Urine Urobilinogen NEG Urine Leukocyte Esterase MODERATE Urine WBC (Auto) 10-30 /hpf Urine RBC (Auto) 5-10 /hpf Urine Hyaline Casts (Auto) 1-5 /lpf Urine Epithelial Cells (Auto) >30 /lpf Urine Bacteria (Auto) NEG Urine Renal Epithelial Cells /lpf Urine Yeast (Auto) BUDDING Lactic Acid Level 4.6 mmol/L Test 06/15/16 22:28 06/16/16 00:07 06/16/16 05:35 06/16/16 06:23 Blood Gas Sample Site R Radial Bedside Blood Gas pH (LAB) 7.39 Bedside Blood Gas pCO2 (LAB) 33 mmHg Bedside Blood Gas pO2 (LAB) 78 mmHg Bedside Blood Gas HCO3 (LAB) 20 meq/L Bedside Blood Gas Total CO2 21 mEq/l Bedside Blood Gas Base Excess (LAB) -5.0 meq/L Bedside Blood Gas O2 Saturation 96.0 % Remy Test Pass Oxygen Delivery Device BIPAP Bedside Oxygen Rate (breaths/min) 12 Bedside FiO2 50 % Blood Gas IPAP 10 Lactic Acid Level 4.1 mmol/L Procalcitonin 1.19 ng/mL Random Cortisol 101.39 mcg/dl Bedside Glucose 245 mg/dl 113 mg/dl White Blood Count 13.87 K/uL Red Blood Count 3.23 M/uL Hemoglobin 9.1 g/dL Hematocrit 28.2 % Mean Corpuscular Volume 87.3 fL Mean Corpuscular Hemoglobin 28.2 pg Mean Corpuscular Hemoglobin Concent 32.3 g/dl Platelet Count 183 K/uL Mean Platelet Volume 8.5 fL Neutrophils (%) (Auto) 95.2 % Lymphocytes (%) (Auto) 2.9 % Monocytes (%) (Auto) 1.5 % Eosinophils (%) (Auto) 0.0 % Basophils (%) (Auto) 0.0 % Neutrophils # (Auto) 13.21 K/uL Lymphocytes # (Auto) 0.40 K/uL Monocytes # (Auto) 0.21 K/uL Eosinophils # (Auto) 0.00 K/uL Basophils # (Auto) 0.00 K/uL RDW Standard Deviation 54.1 fL RDW Coefficient of Variation 16.7 % Immature Granulocyte % (Auto) 0.4 % Immature Granulocyte # (Auto) 0.05 K/uL Sodium Level 143 mmol/L Potassium Level 3.2 mmol/L Chloride Level 109 mmol/L Carbon Dioxide Level 22 mmol/L Anion Gap 12.0 mmol/L Blood Urea Nitrogen 42 mg/dl Creatinine 0.88 mg/dl Est Creatinine Clear Calc Drug Dose 43.6 ml/min Estimated GFR () 96.7 Estimated GFR (Non- 83.4 BUN/Creatinine Ratio 47.5 Random Glucose 124 mg/dl Calcium Level 6.8 mg/dl Magnesium Level 1.7 mg/dl Random Vancomycin Level 3.7 mcg/ml Test 06/16/16 07:39 Lactic Acid Level 1.4 mmol/L Total Bilirubin 0.5 mg/dl Direct Bilirubin 0.2 mg/dl Aspartate Amino Transf (AST/SGOT) 13 U/L Alanine Aminotransferase (ALT/SGPT) 7 U/L Alkaline Phosphatase 119 U/L Total Protein 5.3 gm/dl Albumin 1.9 gm/dl Diagnostic Results ABDOMINAL ULTRASOUND, RIGHT UPPER QUADRANT HISTORY: Pain. Nausea. cholecystitis. COMPARISON: CT examination dated 06/15/2016 FINDINGS: Pancreas: Poorly seen overlying bowel content Liver: Diffuse fatty infiltration. Biliary ductal prominence. Gallbladder: Markedly distended with what is potentially hemorrhage within the lumen versus abnormal soft tissue. CBD: 12 mm. Dilatation of the intra and extra hepatic biliary ductal system Right kidney: No hydronephrosis. IMPRESSION: abnormal gallbladder with potential hemorrhage versus abnormal soft tissue within the distended gallbladder lumen. Distended biliary ductal system. A CT study of the abdomen is suggested as follow-up CT SCAN OF THE CHEST WITHOUT IV CONTRAST CLINICAL HISTORY: Dyspnea. COMPARISON STUDY: Chest x-ray dated 06/15/2016. Chest CT dated 05/19/2014. TECHNIQUE: CT scan of the thorax was performed from the thoracic inlet to the upper abdomen. Images are reviewed in the axial, sagittal, and coronal planes. IV contrast was not administered for this examination as per the front clinician. The examination is significantly degraded by motion artifact, as well as by streak artifact from the patient's arms which could not be elevated above the chest. CT DOSE: 291.65 mGy.cm FINDINGS: Thyroid: Atrophic. Thoracic aorta: The thoracic aorta is normal in caliber and demonstrates standard 3-vessel arch anatomy. Heart: The heart is normal in size noting a small pericardial effusion. The coronary arteries are densely calcified. Lungs and pleural spaces: Advanced emphysema is identified and there is apical bullous change, right greater than left. There are small pleural effusions with patchy bibasilar airspace consolidation, right greater than left. Fluid/debris is noted within the lower lobe airways. Layering fluid is seen in the distal trachea and the mainstem bronchi. Mediastinum: There are scattered mediastinal lymph nodes. Some of these contain coarse calcifications, likely related to remote granulomas infection.. Tena: Not all assessed without IV contrast. There are calcified right hilar lymph nodes. Axillae: There is no axillary lymphadenopathy. Upper abdomen: Intrahepatic biliary ductal dilatation is similar to prior studies. A structure that likely represents a markedly abnormal gallbladder is partially imaged below the liver. Surrounding inflammatory stranding is suggested. Skeletal structures: The skeletal structures are osteopenic. Mild degenerative changes noted throughout the thoracic spine. Chronic changes are again noted in the right humeral shaft. No lytic or blastic bony lesions are seen. Soft tissues: The patient is cachectic. IMPRESSION: 1. Significantly streak and motion artifact degraded examination. 2. Advanced emphysema. 3. There are small pleural effusions with bibasilar airspace consolidation, right greater than left. The appearance is typical for pneumonia/aspiration pneumonitis. Clinical correlation will be required. 4. Fluid/debris is present within the lower lobe airways, and there is layering fluid within the trachea and mainstem bronchi. The appearance is highly concerning for aspiration. 5. A markedly abnormal gallbladder is suggested with surrounding inflammatory change. This is only partially imaged. Correlation with clinical findings and serum bilirubin levels will be required. Follow-up with a right upper quadrant ultrasound is recommended. 6. Additional findings as above. SINGLE VIEW CHEST CLINICAL HISTORY: Dyspnea. FINDINGS: An AP, portable, upright chest radiograph is compared to study dated 09/09/2015 and correlated with chest CT dated 05/19/2014. The examination is degraded by portable technique and patient rotation. The cardiomediastinal silhouette is unremarkable. There is atherosclerotic calcification of the thoracic aorta. Advanced emphysema is identified. Large blebs are noted in the upper lobes, right greater than left. This is similar to previous. Suture material projects over the left upper lobe. Patchy airspace consolidation is identified at the medial right lung base. There is chronic elevation of left hemidiaphragm with left basilar atelectasis. Biapical scarring is observed. No pneumothorax is seen. The skeletal structures are osteopenic. The bony thorax is grossly intact. Chronic calcifications are again seen projecting over the right humeral shaft. IMPRESSION: 1. There is patchy airspace consolidation at the right lung base, likely representing an infectious/inflammatory pneumonitis. Clinical correlation will be required. Radiographic follow-up to resolution is recommended. 2. Advanced emphysema. Assessment & Plan 1. Acute hypoxic respiratory failure secondary to aspiration PNA 2. Acute on chronic hypercapnic failure; emphysema 3. Sepsis secondary to PNA 4. Dilated biliary ductal system secondary to gangrenous gallbladder vs cholecystitis vs choledocholithiasis; elevated alk phos 5. Cachexia 6. BPH requiring chronic vail 7. urinary candidal infection vs colonization 8. Hypokalemia 9. Acute on chronic anemia most likely secondary to dilution NVS - currently alert however does only provide limited history - continue to reorient as needed and screen for delirium/ change in mental status CVS - continue to monitor on tele RVS - CXR in am - Venturi mask and adjust accordingly - goal is 88-93% considering history of emphysema - Chest percussion - Sputum culture - There was mediastinal node calcifications indicating a granulomatous disease - Methylpred 60 mg q 6 h - duoneb prn GI - General surgery consult as USG is concerning - CT abd no contrast - repeat Alk phos and LFT in am - NPO until seen by speech therapy - Phosphorous - pending - famotidine for GI prophylaxis - Change vail today - new UA to r/o colonization vs infection of yeast - follow I&O especially since patient received so much fluid HEME - hgb decreased from 11 to 9 - follow HH qid however most likely secondary to the fluid resus - trend cbc- leukocytosis - PICC for improved access ID - Zosyn and Azithro - MRSA neg- will hold vanco for now FEN - NSS @ 125cc/h - hypokalemia- trend and replete as needed - follow BMP ENDO - Insulin ISS with CF only DVT Prophylaxis - heparin held in case surgery will be done - SCD until that is determined Resident Physician Supervision Note/Data Migration Lead Attending I interviewed and examined the patient. Discussed with Dr. Bartlett and agree with findings and plan as documented in the note. Any exceptions or clarifications are listed in my dictated addendum. Documented By: Marleni Vera Additional Copies To Horatio, [place]
--- NOTE | 2016-06-16 10:13 | Progress Note ---
Progress Note Date of Service Jun 16, 2016. Progress Note Resident Physician Supervision Note: I interviewed and examined the patient. Discussed with Dr. Srivastava and agree with findings and plan as documented in the note. Any exceptions or clarifications are listed here: None Documented By: [place] awake, knows he's in the hospital, notes he lives at [facility]. year is 1965. vaguely complains of sob. denies abdominal pain. labs/radiology reviewed, d/w critical care resident and saw pt at same time as she (dr bass) vitals noted, see EMR pleasant fatigued, laying in bed, frail and thin cardio - somewhat distant no r/m/g lungs -diminished throughout although no focal findings, no accessory muscles good effort abd - soft except for firm RUQ mild tender but (+) involuntary guarding sepsis - biliary vs pneumonia vs both -does appear stabilizing. critical care resident will call surgery team for evaluation (we discussed this and she noted she would call); anticipate early course of med management then either elective choley vs ?cholecystostomy tube. more urgent should he worsen. continue O2 and supportive care, same abx for pneumonia. has extensive emphysema
[2016-06-16] MEDS ORDERED: FAMOTIDINE IV INJ 20 MG in DEXTROSE 5% 100ML 100 ML IV ONE (10:15)
--- NOTE | 2016-06-16 10:21 | Medical Consult ---
Consultation Date of Consultation: Jun 16, 2016. Attending Physician: Chas Ayala MD History of Present Illness 76 y/o male brought to ER from [facility] for several days SOB, cough. Chest CT shows aspiration pneumonia and inflammatory changes of gallbladder. U/S suggests possible hemorrhagic cholecystitis. He was hypotensive overnight, was given 5 liters to maintain pressure. He denies abdominal pain or history of known biliary disease. There were some EKG changes in the ED, cardiology consult is pending. 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 Family History Heart disease Social History Smoking Status: Former Smoker Drug Use: none Marital Status: single Housing Status: prison Occupation Status: retired Allergies Coded Allergies: No Known Allergies (Verified , 06/15/16) Current Inpatient Medications Current Inpatient Medications Medications (Trade) Dose Ordered Sig/Anjum Route Start Time Stop Time Status Last Admin Dose Admin Azithromycin/ Dextrose (Zithromax IV/D5 250ml) 255 ml @ 125 mls/hr Q24H IV 06/15/16 21:00 06/22/16 20:59 06/15/16 21:47 125 MLS/HR Acetaminophen (Tylenol Tab) 650 mg Q4H PRN PO 06/15/16 19:45 07/15/16 19:44 Lorazepam (Ativan Tab) 0.5 mg Q4H PRN PO 06/15/16 19:45 07/15/16 19:44 Morphine Sulfate (MoRPHine SULFATE INJ) 2 mg Q2H PRN IV 06/15/16 19:45 06/29/16 19:44 Albuterol/ Ipratropium 3 ml 3 ml Q6R INH 06/15/16 21:00 07/15/16 20:59 06/16/16 07:45 3 ML Piperacillin Sod/ Tazobactam Sod 3.375 gm/Dextrose 115 ml @ 28.75 mls/ hr Q8H IV 06/16/16 00:00 06/23/16 00:00 06/16/16 08:22 28.75 MLS/HR Sodium Chloride (Nss 1000ml) 1,000 ml @ 125 mls/hr Q8H IV 06/15/16 21:15 06/16/16 13:14 06/16/16 06:12 125 MLS/HR Heparin Sodium (Porcine) (Heparin Sq 5000 Unit/0.5ml) 5,000 unit Q8 SQ 06/15/16 22:00 07/15/16 21:59 06/16/16 06:11 5,000 UNIT Albuterol Sulfate (Ventolin 0.083% 2.5MG/3ML Neb) 2.5 mg Q4H PRN INH 06/15/16 21:15 07/15/16 21:14 Piperacillin Sod/ Tazobactam Sod 1 ea 1 ea UD PRN N/A 06/15/16 21:15 07/15/16 21:14 Methylprednisolone Sodium Succinate/ Syringe (Solu-Medrol IV/ Syringe) 0.96 ml @ 1.5 mls/min Q6 IV 06/16/16 00:00 07/16/16 00:00 06/16/16 06:10 1.5 MLS/MIN Insulin Aspart (novoLOG ASPART) SLIDING SCALE G... Q6 SC 06/16/16 01:45 07/16/16 01:44 06/16/16 02:27 3 UNITS Glucose (Glucose 40% Gel) 15-30 GRAMS 15 GRAMS... UD PRN PO 06/16/16 02:00 07/16/16 01:59 Glucose (Glucose Chew Tab) 4-8 Tablets 4 Tabl... UD PRN PO 06/16/16 02:00 07/16/16 01:59 Dextrose (Dextrose 50% 50ML Syringe) 25-50ML OF 50% DW IV FOR... UD PRN IV 06/16/16 02:00 07/16/16 01:59 Glucagon 1 mg 1 mg UD PRN SQ 06/16/16 02:00 07/16/16 01:59 Magnesium Sulfate 1 gm/Prmx 100 ml @ 100 mls/hr Q1H IV 06/16/16 08:15 06/16/16 10:14 06/16/16 09:59 100 MLS/HR Potassium Chloride/Prmx (Kcl 10 Meq / Wtr/Premixed Water) 100 ml @ 100 mls/hr Q1H IV 06/16/16 08:15 06/16/16 12:14 06/16/16 09:59 100 MLS/HR Famotidine (Pepcid Tab) 20 mg BID PO 06/16/16 09:00 07/16/16 08:59 Review of Systems Respiratory: + cough, + shortness of breath, + sputum Physical Exam Date Time Temp Pulse Resp B/P Pulse Ox O2 Delivery O2 Flow Rate FiO2 06/16/16 08:00 93 Venturi Mask 15.0 40 06/16/16 08:00 91 20 117/58 93 Venturi Mask 15.0 40 06/16/16 07:45 86 14 95 Venturi Mask 12.0 40 06/16/16 06:00 80 16 89/43 94 Venturi Mask 15.0 06/16/16 04:01 36.4 86 16 90/49 96 Venturi Mask 15.0 06/16/16 04:00 95 Venturi Mask 15.0 06/16/16 02:43 77 14 95 Venturi Mask 12.0 40 06/16/16 02:00 78 18 86/50 97 Venturi Mask 15.0 06/16/16 00:16 36.4 105 18 94/59 96 BiPAP 50 06/16/16 00:00 36.4 97 21 85/55 96 Venturi Mask 15.0 06/15/16 23:59 95 Venturi Mask 15.0 06/15/16 23:18 98 95 40 06/15/16 23:00 101 19 90/57 98 Venturi Mask 15.0 06/15/16 21:29 107 18 97 BiPAP/CPAP 50 06/15/16 21:20 110 98 50 06/15/16 20:16 119 20 94/59 95 BiPAP 06/15/16 20:06 117 22 103/63 96 BiPAP 06/15/16 19:46 119 24 105/68 96 BiPAP 06/15/16 19:00 125 22 103/100 96 Ambu-Bag 06/15/16 18:53 124 22 99/66 96 BiPAP 06/15/16 18:37 123 96 50 06/15/16 18:35 123 18 96 BiPAP/CPAP 50 06/15/16 18:05 96 Non-Rebreather 15.0 06/15/16 18:02 136 06/15/16 17:51 83 Room Air 06/15/16 17:51 36.8 135 32 111/67 94 Non-Rebreather 15.0 General Appearance: + thin Respiratory/Chest: + rhonchi Cardiovascular: regular rate, rhythm Abdomen/GI: soft, + tenderness (RUQ), + guarding Laboratory Results Last 24 Hours Test 06/15/16 18:33 06/15/16 18:42 06/15/16 19:50 06/15/16 21:19 White Blood Count 20.86 K/uL Red Blood Count 4.01 M/uL Hemoglobin 11.5 g/dL Hematocrit 35.4 % Mean Corpuscular Volume 88.3 fL Mean Corpuscular Hemoglobin 28.7 pg Mean Corpuscular Hemoglobin Concent 32.5 g/dl Platelet Count 247 K/uL Mean Platelet Volume 9.0 fL Neutrophils (%) (Auto) 86.9 % Lymphocytes (%) (Auto) 4.5 % Monocytes (%) (Auto) 8.1 % Eosinophils (%) (Auto) 0.0 % Basophils (%) (Auto) 0.1 % Neutrophils # (Auto) 18.11 K/uL Lymphocytes # (Auto) 0.94 K/uL Monocytes # (Auto) 1.70 K/uL Eosinophils # (Auto) 0.01 K/uL Basophils # (Auto) 0.02 K/uL RDW Standard Deviation 53.7 fL RDW Coefficient of Variation 16.6 % Immature Granulocyte % (Auto) 0.4 % Immature Granulocyte # (Auto) 0.08 K/uL Echinocytes 2+ Prothrombin Time 12.6 SECONDS Prothromb Time International Ratio 1.2 Activated Partial Thromboplast Time 28.9 SECONDS Partial Thromboplastin Ratio 1.1 Sodium Level 139 mmol/L Potassium Level 4.1 mmol/L Chloride Level 101 mmol/L Carbon Dioxide Level 26 mmol/L Anion Gap 12.0 mmol/L Blood Urea Nitrogen 57 mg/dl Creatinine 1.40 mg/dl Est Creatinine Clear Calc Drug Dose 30.5 ml/min Estimated GFR () 56.2 Estimated GFR (Non- 48.5 BUN/Creatinine Ratio 40.4 Random Glucose 154 mg/dl Calcium Level 8.0 mg/dl Total Bilirubin 1.1 mg/dl Aspartate Amino Transf (AST/SGOT) 11 U/L Alanine Aminotransferase (ALT/SGPT) 7 U/L Alkaline Phosphatase 160 U/L Troponin I < 0.015 ng/ml Pro-B-Type Natriuretic Peptide 2200 pg/ml Total Protein 6.6 gm/dl Albumin 2.4 gm/dl Globulin 4.2 gm/dl Albumin/Globulin Ratio 0.6 Venous Blood pH 7.26 Venous Blood Partial Pressure CO2 53 mmHg Venous Blood Partial Pressure O2 28 mmHg Venous Blood HCO3 23 mmol/L Venous Blood Oxygen Saturation < 60.0 % Venous Blood Base Excess -4.1 mmol/L Urine Color YELLOW Urine Appearance CLOUDY Urine pH 5.0 Urine Specific [place] 1.018 Urine Protein NEG Urine Glucose (UA) NEG Urine Ketones NEG Urine Occult Blood 2+ Urine Nitrite NEG Urine Bilirubin NEG Urine Urobilinogen NEG Urine Leukocyte Esterase MODERATE Urine WBC (Auto) 10-30 /hpf Urine RBC (Auto) 5-10 /hpf Urine Hyaline Casts (Auto) 1-5 /lpf Urine Epithelial Cells (Auto) >30 /lpf Urine Bacteria (Auto) NEG Urine Renal Epithelial Cells /lpf Urine Yeast (Auto) BUDDING Lactic Acid Level 4.6 mmol/L Test 06/15/16 22:28 06/16/16 00:07 06/16/16 05:35 06/16/16 06:23 Blood Gas Sample Site R Radial Bedside Blood Gas pH (LAB) 7.39 Bedside Blood Gas pCO2 (LAB) 33 mmHg Bedside Blood Gas pO2 (LAB) 78 mmHg Bedside Blood Gas HCO3 (LAB) 20 meq/L Bedside Blood Gas Total CO2 21 mEq/l Bedside Blood Gas Base Excess (LAB) -5.0 meq/L Bedside Blood Gas O2 Saturation 96.0 % Remy Test Pass Oxygen Delivery Device BIPAP Bedside Oxygen Rate (breaths/min) 12 Bedside FiO2 50 % Blood Gas IPAP 10 Lactic Acid Level 4.1 mmol/L Procalcitonin 1.19 ng/mL Random Cortisol 101.39 mcg/dl Bedside Glucose 245 mg/dl 113 mg/dl White Blood Count 13.87 K/uL Red Blood Count 3.23 M/uL Hemoglobin 9.1 g/dL Hematocrit 28.2 % Mean Corpuscular Volume 87.3 fL Mean Corpuscular Hemoglobin 28.2 pg Mean Corpuscular Hemoglobin Concent 32.3 g/dl Platelet Count 183 K/uL Mean Platelet Volume 8.5 fL Neutrophils (%) (Auto) 95.2 % Lymphocytes (%) (Auto) 2.9 % Monocytes (%) (Auto) 1.5 % Eosinophils (%) (Auto) 0.0 % Basophils (%) (Auto) 0.0 % Neutrophils # (Auto) 13.21 K/uL Lymphocytes # (Auto) 0.40 K/uL Monocytes # (Auto) 0.21 K/uL Eosinophils # (Auto) 0.00 K/uL Basophils # (Auto) 0.00 K/uL RDW Standard Deviation 54.1 fL RDW Coefficient of Variation 16.7 % Immature Granulocyte % (Auto) 0.4 % Immature Granulocyte # (Auto) 0.05 K/uL Sodium Level 143 mmol/L Potassium Level 3.2 mmol/L Chloride Level 109 mmol/L Carbon Dioxide Level 22 mmol/L Anion Gap 12.0 mmol/L Blood Urea Nitrogen 42 mg/dl Creatinine 0.88 mg/dl Est Creatinine Clear Calc Drug Dose 43.6 ml/min Estimated GFR () 96.7 Estimated GFR (Non- 83.4 BUN/Creatinine Ratio 47.5 Random Glucose 124 mg/dl Calcium Level 6.8 mg/dl Magnesium Level 1.7 mg/dl Random Vancomycin Level 3.7 mcg/ml Test 06/16/16 07:39 Lactic Acid Level 1.4 mmol/L Total Bilirubin 0.5 mg/dl Direct Bilirubin 0.2 mg/dl Aspartate Amino Transf (AST/SGOT) 13 U/L Alanine Aminotransferase (ALT/SGPT) 7 U/L Alkaline Phosphatase 119 U/L Total Protein 5.3 gm/dl Albumin 1.9 gm/dl ABDOMINAL ULTRASOUND, RIGHT UPPER QUADRANT HISTORY: Pain. Nausea. cholecystitis. COMPARISON: CT examination dated 06/15/2016 FINDINGS: Pancreas: Poorly seen overlying bowel content Liver: Diffuse fatty infiltration. Biliary ductal prominence. Gallbladder: Markedly distended with what is potentially hemorrhage within the lumen versus abnormal soft tissue. CBD: 12 mm. Dilatation of the intra and extra hepatic biliary ductal system Right kidney: No hydronephrosis. IMPRESSION: abnormal gallbladder with potential hemorrhage versus abnormal soft tissue within the distended gallbladder lumen. Distended biliary ductal system. A CT study of the abdomen is suggested as follow-up Electronically signed by: Lorenzo Covington M.D. 06/16/2016 7:16 AM Dictated Date/Time: 06/16/2016 7:06 AM Assessment & Plan acute cholecystitis aspiration pneumonia Likely gangrenous cholecystitis but is poor surgical candidate. CT of abdomen is pending. Depending on CT findings, radiology may be able to place drainage catheter or we may need to take him to the OR for drainage of gallbladder or RUQ under local.
--- NOTE | 2016-06-16 10:24 | Family Medicine Progress Note ---
Progress Note Date of Service Jun 16, 2016. Subjective Pt evaluation today including: conversation w/ patient, physical exam, chart review, lab review, review of studies, review of inpatient medication list Pain: 0 PO Intake: NPO Voiding: vail catheter in place Patient not orientated to time, place or person. Unable to tell me why he is here. Denies any chest, abdominal pain or shortness of breath. Additional Comments: Unable to obtain due to patient cognition Medications Current Inpatient Medications Medications (Trade) Dose Ordered Sig/Anjum Route Start Time Stop Time Status Last Admin Dose Admin Azithromycin/ Dextrose (Zithromax IV/D5 250ml) 255 ml @ 125 mls/hr Q24H IV 06/15/16 21:00 06/22/16 20:59 06/15/16 21:47 125 MLS/HR Acetaminophen (Tylenol Tab) 650 mg Q4H PRN PO 06/15/16 19:45 07/15/16 19:44 Lorazepam (Ativan Tab) 0.5 mg Q4H PRN PO 06/15/16 19:45 07/15/16 19:44 Morphine Sulfate (MoRPHine SULFATE INJ) 2 mg Q2H PRN IV 06/15/16 19:45 06/29/16 19:44 Albuterol/ Ipratropium 3 ml 3 ml Q6R INH 06/15/16 21:00 07/15/16 20:59 06/16/16 07:45 3 ML Piperacillin Sod/ Tazobactam Sod 3.375 gm/Dextrose 115 ml @ 28.75 mls/ hr Q8H IV 06/16/16 00:00 06/23/16 00:00 06/16/16 08:22 28.75 MLS/HR Sodium Chloride (Nss 1000ml) 1,000 ml @ 125 mls/hr Q8H IV 06/15/16 21:15 06/16/16 13:14 06/16/16 06:12 125 MLS/HR Heparin Sodium (Porcine) (Heparin Sq 5000 Unit/0.5ml) 5,000 unit Q8 SQ 06/15/16 22:00 07/15/16 21:59 06/16/16 06:11 5,000 UNIT Albuterol Sulfate (Ventolin 0.083% 2.5MG/3ML Neb) 2.5 mg Q4H PRN INH 06/15/16 21:15 07/15/16 21:14 Piperacillin Sod/ Tazobactam Sod 1 ea 1 ea UD PRN N/A 06/15/16 21:15 07/15/16 21:14 Methylprednisolone Sodium Succinate/ Syringe (Solu-Medrol IV/ Syringe) 0.96 ml @ 1.5 mls/min Q6 IV 06/16/16 00:00 07/16/16 00:00 06/16/16 06:10 1.5 MLS/MIN Insulin Aspart (novoLOG ASPART) SLIDING SCALE G... Q6 SC 06/16/16 01:45 07/16/16 01:44 06/16/16 02:27 3 UNITS Glucose (Glucose 40% Gel) 15-30 GRAMS 15 GRAMS... UD PRN PO 06/16/16 02:00 07/16/16 01:59 Glucose (Glucose Chew Tab) 4-8 Tablets 4 Tabl... UD PRN PO 06/16/16 02:00 07/16/16 01:59 Dextrose (Dextrose 50% 50ML Syringe) 25-50ML OF 50% DW IV FOR... UD PRN IV 06/16/16 02:00 07/16/16 01:59 Glucagon 1 mg 1 mg UD PRN SQ 06/16/16 02:00 07/16/16 01:59 Potassium Chloride 10 meq/ Prmx 100 ml @ 100 mls/hr Q1H IV 06/16/16 08:15 06/16/16 12:14 06/16/16 09:59 100 MLS/HR Famotidine 20 mg/ Dextrose 102 ml @ 204 mls/hr Q12 IV 06/16/16 21:00 07/16/16 20:59 Famotidine/ Dextrose (Pepcid IV Inj/ D5 100ml) 102 ml @ 204 mls/hr NOW ONCE IV 06/16/16 10:15 06/16/16 10:44 Objective Vital Signs Date Time Temp Pulse Resp B/P Pulse Ox O2 Delivery O2 Flow Rate FiO2 06/16/16 08:00 93 Venturi Mask 15.0 40 06/16/16 08:00 91 20 117/58 93 Venturi Mask 15.0 40 06/16/16 07:45 86 14 95 Venturi Mask 12.0 40 06/16/16 06:00 80 16 89/43 94 Venturi Mask 15.0 06/16/16 04:01 36.4 86 16 90/49 96 Venturi Mask 15.0 06/16/16 04:00 95 Venturi Mask 15.0 06/16/16 02:43 77 14 95 Venturi Mask 12.0 40 06/16/16 02:00 78 18 86/50 97 Venturi Mask 15.0 06/16/16 00:16 36.4 105 18 94/59 96 BiPAP 50 06/16/16 00:00 36.4 97 21 85/55 96 Venturi Mask 15.0 06/15/16 23:59 95 Venturi Mask 15.0 06/15/16 23:18 98 95 40 06/15/16 23:00 101 19 90/57 98 Venturi Mask 15.0 06/15/16 21:29 107 18 97 BiPAP/CPAP 50 06/15/16 21:20 110 98 50 06/15/16 20:16 119 20 94/59 95 BiPAP 06/15/16 20:06 117 22 103/63 96 BiPAP 06/15/16 19:46 119 24 105/68 96 BiPAP 06/15/16 19:00 125 22 103/100 96 Ambu-Bag 06/15/16 18:53 124 22 99/66 96 BiPAP 06/15/16 18:37 123 96 50 06/15/16 18:35 123 18 96 BiPAP/CPAP 50 06/15/16 18:05 96 Non-Rebreather 15.0 06/15/16 18:02 136 06/15/16 17:51 83 Room Air 06/15/16 17:51 36.8 135 32 111/67 94 Non-Rebreather 15.0 Physical Exam General Appearance: + pertinent finding (thin, neurofibromas, appears somewhat somnolent) Eyes: + pertinent finding (medial deviation of right eye with pupil dilatation , 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) ENT: hearing grossly normal Neck: trachea midline, + JVD Respiratory/Chest: no respiratory distress, no accessory muscle use, + decreased breath sounds (worse on right size) Cardiovascular: regular rate, rhythm, no murmur Abdomen: normal bowel sounds, non tender (nog guarding or rebound), soft, + distended Extremities: no pedal edema, normal capillary refill, + calf tenderness ( bilaterally, no swelling) Neurologic/Psychiatric: alert, + disoriented Skin: + pertinent finding (multiple cutaneous neurofibromas) Laboratory Results 06/16/16 05:35 Red Blood Count 3.23, Mean Corpuscular Volume 87.3, Mean Corpuscular Hemoglobin 28.2, Mean Corpuscular Hemoglobin Concent 32.3, Mean Platelet Volume 8.5, Neutrophils (%) (Auto) 95.2, Lymphocytes (%) (Auto) 2.9, Monocytes (%) (Auto) 1.5, Eosinophils (%) (Auto) 0.0, Basophils (%) (Auto) 0.0, Neutrophils # (Auto) 13.21, Lymphocytes # (Auto) 0.40, Monocytes # (Auto) 0.21, Eosinophils # (Auto) 0.00, Basophils # (Auto) 0.00 06/16/16 05:35 Test 06/15/16 18:33 06/15/16 18:42 06/15/16 19:50 06/15/16 22:28 Echinocytes 2+ Prothrombin Time 12.6 SECONDS (9.0-12.0) Prothromb Time International Ratio 1.2 (0.9-1.1) Activated Partial Thromboplast Time 28.9 SECONDS (21.0-31.0) Partial Thromboplastin Ratio 1.1 Troponin I < 0.015 ng/ml (0-0.045) Pro-B-Type Natriuretic Peptide 2200 pg/ml (0-1800) Globulin 4.2 gm/dl (2.5-4.0) Albumin/Globulin Ratio 0.6 (0.9-2) Venous Blood pH 7.26 (7.36-7.41) Venous Blood Partial Pressure CO2 53 mmHg (38.0-50.0) Venous Blood Partial Pressure O2 28 mmHg Venous Blood HCO3 23 mmol/L Venous Blood Oxygen Saturation < 60.0 % Venous Blood Base Excess -4.1 mmol/L Urine Color YELLOW Urine Appearance CLOUDY (CLEAR) Urine pH 5.0 (4.5-7.5) Urine Specific [place] 1.018 (1.000-1.030) Urine Protein NEG (NEG) Urine Glucose (UA) NEG (NEG) Urine Ketones NEG (NEG) Urine Occult Blood 2+ (NEG) Urine Nitrite NEG (NEG) Urine Bilirubin NEG (NEG) Urine Urobilinogen NEG (NEG) Urine Leukocyte Esterase MODERATE (NEG) Urine WBC (Auto) 10-30 /hpf (0-5) Urine RBC (Auto) 5-10 /hpf (0-4) Urine Hyaline Casts (Auto) 1-5 /lpf (0-5) Urine Epithelial Cells (Auto) >30 /lpf (0-5) Urine Bacteria (Auto) NEG (NEG) Urine Renal Epithelial Cells /lpf (0-5) Urine Yeast (Auto) BUDDING (NONE PRSENT) Blood Gas Sample Site R Radial Bedside Blood Gas pH (LAB) 7.39 (7.35-7.45) Bedside Blood Gas pCO2 (LAB) 33 mmHg (35-46) Bedside Blood Gas pO2 (LAB) 78 mmHg (80-95) Bedside Blood Gas HCO3 (LAB) 20 meq/L (19-24) Bedside Blood Gas Total CO2 21 mEq/l (24-31) Bedside Blood Gas Base Excess (LAB) -5.0 meq/L (-9-1.8) Bedside Blood Gas O2 Saturation 96.0 % (90-95) Remy Test Pass Oxygen Delivery Device BIPAP Bedside Oxygen Rate (breaths/min) 12 Bedside FiO2 50 % Blood Gas IPAP 10 Procalcitonin 1.19 ng/mL (0-0.5) Random Cortisol 101.39 mcg/dl Test 06/16/16 05:35 06/16/16 06:23 06/16/16 07:39 White Blood Count 13.87 K/uL (4.8-10.8) Red Blood Count 3.23 M/uL (4.7-6.1) Hemoglobin 9.1 g/dL (14.0-18.0) Hematocrit 28.2 % (42-52) Mean Corpuscular Volume 87.3 fL (80-100) Mean Corpuscular Hemoglobin 28.2 pg (25-34) Mean Corpuscular Hemoglobin Concent 32.3 g/dl (32-36) Platelet Count 183 K/uL (130-400) Mean Platelet Volume 8.5 fL (7.4-10.4) Neutrophils (%) (Auto) 95.2 % Lymphocytes (%) (Auto) 2.9 % Monocytes (%) (Auto) 1.5 % Eosinophils (%) (Auto) 0.0 % Basophils (%) (Auto) 0.0 % Neutrophils # (Auto) 13.21 K/uL (1.4-6.5) Lymphocytes # (Auto) 0.40 K/uL (1.2-3.4) Monocytes # (Auto) 0.21 K/uL (0.11-0.59) Eosinophils # (Auto) 0.00 K/uL (0-0.5) Basophils # (Auto) 0.00 K/uL (0-0.2) RDW Standard Deviation 54.1 fL (36.4-46.3) RDW Coefficient of Variation 16.7 % (11.5-14.5) Immature Granulocyte % (Auto) 0.4 % Immature Granulocyte # (Auto) 0.05 K/uL (0.00-0.02) Anion Gap 12.0 mmol/L (3-11) Est Creatinine Clear Calc Drug Dose 43.6 ml/min Estimated GFR () 96.7 Estimated GFR (Non- 83.4 BUN/Creatinine Ratio 47.5 (10-20) Calcium Level 6.8 mg/dl (8.5-10.1) Magnesium Level 1.7 mg/dl (1.8-2.4) Random Vancomycin Level 3.7 mcg/ml Bedside Glucose 113 mg/dl (70-99) Lactic Acid Level 1.4 mmol/L (0.4-2.0) Total Bilirubin 0.5 mg/dl (0.2-1) Direct Bilirubin 0.2 mg/dl (0-0.2) Aspartate Amino Transf (AST/SGOT) 13 U/L (15-37) Alanine Aminotransferase (ALT/SGPT) 7 U/L (12-78) Alkaline Phosphatase 119 U/L (45-117) Total Protein 5.3 gm/dl (6.4-8.2) Albumin 1.9 gm/dl (3.4-5.0) Assessment and Plan 76 year old male w/Hx advanced COPD, neurofibromatosis, BPH w/retention and chronic [place] present with chest pain and shortness of breath Sepsis (source chest vs. cholecystitis) - US abdomen - abnormal gallbladder with potential hemorrhage versus abnormal soft tissue within the distended gallbladder lumen. Distended biliary ductal system. Pending CT as ordered by ICU. Stat LFTs although non obstruction LFTs on admission - lactic acid added to labs (4.6 on admission) - IVF NSS 125 MLS/HR continue - Continue azithromycin and Tazocin (MRSA negative) Acute hypoxic respiratory failure - Continue to maintain sats > 90%, no CO2 retention so can go higher but I suspect his saturations run low most of the time given his severe emphysema - mediastinal chronic calcified lymph nodes I suspect is related to his neurofibromatosis Aspiration pneumonia - bibasal consolidation on CT R>L. Antibiotics as above. - speech eval when COPD exacerbation - Methylpred 60 mg IV Q6H - Duonebs Normocytic anemia - reduction probably dilutional, appears chronically anemic, will monitor Electrolyte imbalance - hypokalemia, hypomagnesemia - replace as per ICU protocols Non acute History of pancreatic ampullary mass, status post endoscopic ultrasound and fine needle aspiration in 2015. Code - DNR, DNI VTE/GI Prophylaxis - chemical on hold secondary to possible hemorrhage on US gall bladder - Pantoprazole 40 mg IV BID Disposition - continue in ICU due to critical status. Consider additional lines as only two periphery currently.
--- NOTE | 2016-06-16 11:30 | DIAGNOSTIC IMAGING REPORT ---
ABDOMEN AND PELVIS CT WITHOUT CONTRAST CT DOSE: HISTORY: Pain. Abnormal ultrasound. r/o gangrenous gallbladder TECHNIQUE: Multiaxial CT images of the abdomen and pelvis were performed without contrast. COMPARISON STUDY: 06/15/2016. Right upper quadrant ultrasound same date. FINDINGS: Developing basilar parenchymal infiltrative change. Chronic periventricular ductal distention. Apparent free air anterior superior abdominal region. Collection versus marked distention of the gallbladder inferior to the right hepatic lobe. This measures 10 x 8 x 11 cm. Possibility of a hematoma adjacent to the gallbladder is a consideration. Free air within the upper abdomen potentially represents perforated viscus. Bowel pattern overall is considered nonobstructive. There is considerable atherosclerotic change and ectasia of the abdominal and pelvic arterial vasculature. Multiple fluid-filled loops small bowel identified lower quadrant on the right. There is a Juares catheter within the bladder. Bladder is collapsed. There is fluid distention of the rectosigmoid. IMPRESSION: 1. Interval free air superior aspect anterior abdomen. 2. Origin is unclear pelvis although this most likely represents perforated viscus and/or gallbladder. 3. Apparent progressive high density fluid collection involving/originating from the gallbladder with dimensions as noted. Possibility of a hemorrhagic cholecystitis versus a gallbladder perforation must be considered. 4. Developing bibasilar parenchymal infiltrates. 5. Chronic basilar ductal prominence. 6. Mild generalized reactive nonobstructive ileus. 7. These results were given to Dr. Shaw Electronically signed by: Lorenzo Covington M.D. 06/16/2016 11:27 AM Dictated Date/Time: 06/16/2016 11:02 AM
--- NOTE | 2016-06-16 12:39 | DIAGNOSTIC IMAGING REPORT ---
SINGLE VIEW CHEST CLINICAL HISTORY: PICC placement. FINDINGS: An AP, portable, upright chest radiograph is compared to chest x-ray and chest CT dated 06/15/2016. The examination is degraded by portable technique and patient rotation. A right PICC line has been placed. The tip of the catheter projects over the cavoatrial junction. The cardiomediastinal silhouette is unremarkable. There is atherosclerotic calcification of the thoracic aorta. Advanced emphysema is identified. Biapical bullous change is noted, right greater than left. This is similar to previous. Suture material projects over the left upper lobe and there is loculated fluid at the left apex. Patchy airspace consolidation is identified at the lung bases, right significantly greater than left. There is chronic elevation of left diaphragm. Biapical scarring is observed. No large pleural effusion or pneumothorax is seen. The skeletal structures are osteopenic. The bony thorax is grossly intact. Intraperitoneal free air is again noted in the upper abdomen. IMPRESSION: 1. A right PICC line has been placed. The tip of the catheter projects over the cavoatrial junction. 2. Severe emphysema. 3. Patchy airspace consolidation is again seen at both lung bases, right greater than left. 4. Intraperitoneal free air is identified in the left upper quadrant. Electronically signed by: Raz Lezama M.D. 06/16/2016 12:37 PM Dictated Date/Time: 06/16/2016 12:35 PM
--- NOTE | 2016-06-16 13:27 | SURGERY PROGRESS NOTE ---
DATE: 06/16/2016 SUBJECTIVE: Seen in followup visitation with Zac Barnes, physician assistant case manager who had dictated a more thorough note, but in summary, at this time we have a couple issues with Pancho, namely a significant pulmonary reserve, which is very little and significant COPD. Radiographically, we have what appears to be the possibility of a fluid collection in the right upper quadrant, I am reviewing with radiologist, they think it may be blood, possibly perforated gallbladder, but he also has an issue of perforated viscus. I reviewed the CAT scans and the ultrasounds with 2 radiologists at this time and they feel that the free air is rale, and the amount of air would most likely be consistent with a perforated gastric ulcer. There seems to be no other area by CAT scan than any other part of the abdomen and it seems to be most diaphragmatic bilaterally epigastric. So the etiology of what we have now is a gentleman that came significant physiologically compromised, that has improved at least hemodynamically and chemically by broad-spectrum antibiotic and fluid resuscitation. Subjectively Pancho feels better than he had yesterday. He is not really complaining of any abdominal pain. In fact, he just moved his bowels. By physical exam, he does have a moderate amount of guarding in the right upper quadrant, more so, but he does have some generalized guarding in both lower quadrants but most significant with some tenderness in the right upper quadrant. I discussed the situation with them and at this point I think taking him to surgery would be very prohibitive and since clinically he seems to be improving, documented by his last vitals, which showed a heart rate of 86, temperature of 36.4, blood pressure 113/51, O2 sats 91 on 15 liters. His I\T\O he is made over 500 mL of urine since the catheter was inserted and as stated, he had a bowel movement. Laboratory mccarty, his white count is still elevated at 13.87, hemoglobin is down to 9.1 and his left shift has decreased and the chemistries showed a BUN of 42, and creatinine 0.88. His albumin is 1.0, but this is probably longstanding I discussed the situation with the lab coordinator also and my feeling at this time is let us manage him nonoperatively until he pronounces himself as more significant that nonoperative management will no longer be offered to him and we would refer to an intervention. Also of note, his lactate is 1.4, when he came in it was 4.6. Pancho is agreeable with this. BRI
[2016-06-16 14:01] LABS: URINE APPEARANCE CLOUDY (CLEAR); URINE BILIRUBIN NEG (NEG); URINE COLOR YELLOW; URINE EPITHELIAL CELL AUTO >30 /lpf (0-5); URINE NITRITE NEG (NEG); URINE SPECIFIC GRAVITY 1.017 (1.000-1.030); UROBILINOGEN NEG (NEG)
[2016-06-16 14:05] LABS: MANUAL MICROSCOPIC REQUIRED? NO; REVIEW REQ? YES; ZZURINE CULT IF INDIC CATH NO
[2016-06-16] MEDS ORDERED: POTASSIUM PHOS 3 MMOL/1 ML INFUSION IV STA (14:09)
[2016-06-16] MEDS ORDERED: POTASSIUM PHOSPHATE INJ 21 MMOL in SODIUM CHLORIDE 0.9% 500ML 500 ML IV SCH (15:00)
--- NOTE | 2016-06-16 15:54 | CRITICAL CARE CONSULTATION ---
DATE OF CONSULTATION: 06/16/2016 Addendum to the critical care consultation done by Dr. Becka Bartlett earlier today. The patient's care was discussed in detail on multidisciplinary rounds today. I have personally interviewed and examined the patient and have discussed his care with Dr. Bartlett. HISTORY OF PRESENT ILLNESS: Briefly, he is a 76-year-old gentleman with a history of severe chronic obstructive pulmonary disease who presented to the Emergency Department with shortness of breath, hypoxemia and hypotension. He was started on broad spectrum antibiotics and given a total of 5 liters of IV fluid. His blood pressure improved and he did not require vasopressors. His lactate also improved from 4.6 down to normal this morning. He presently does not have any complaints. He was on BiPAP last evening but did not tolerate very well and is on a 40% facemask presently. He denies abdominal pain and is mildly short of breath. He is not a very good historian. He specifically denies any nausea or vomiting. He is unable to tell me whether or not he is choking on his food. 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 SOCIAL HISTORY: Per Dr. Bartlett's note. MEDICATIONS: Per Dr. Bartlett's note. FAMILY HISTORY: Per Dr. Bartlett's note. REVIEW OF SYSTEMS: Per Dr. Bartlett's note. PHYSICAL EXAMINATION: GENERAL: He is chronically ill appearing and has a weight of 45 kilograms. VITAL SIGNS: Temperature 36.6, heart rate 90, respiratory rate 18, blood pressure 131/57, oxygen saturation 94%. HEENT: The right eye is medially deviated and appears to have a cataract. It is difficult for me to see the pupil. LUNGS: Have bibasilar rales and rhonchi. HEART: Regular rate and rhythm. ABDOMEN: Firm, flat, mild right upper quadrant tenderness without rebound or guarding on my exam, hypoactive bowel sounds. EXTREMITIES: Cachectic and a bit cool. No mottling. LABORATORY DATA: White blood cell count 13.87, hemoglobin 9.1, hematocrit 28.2, platelets 203. Sodium 143, potassium 3.2, chloride 109, CO2 of 22, BUN 42, creatinine 0.88, blood sugar 245 down to 124, procalcitonin 1.19, random cortisol 101.39. Lactic acid 1.4, down from 4.6. Urinalysis with positive leukocyte esterase, white blood cells, 10-30 and budding yeast. C. diff is negative. IMAGING DATA: As previously described with the exception of the CT of abdomen and pelvis from today which shows a suspicion of intraperitoneal free air, progressive high density fluid collection involving/originating from the gallbladder with dimensions of 10 x 8 x 11 cm as well as developing bibasilar parenchymal infiltrates, and mild generalized reactive nonobstructing ileus. IMPRESSION: 1. Sepsis, initially felt to be secondary to an aspiration pneumonia; however, since then, his abdominal ultrasound and CT scan of the abdomen have shed light on a possible fluid collection intraabdominally. He may have some free air and the surgical team has been consulted. With his present therapy, his hemodynamics have improved as had his lactate. 2. Bibasilar pneumonia, probably related to aspiration. 3. Intra-abdominal fluid collection of unclear etiology. He is definitely a poor surgical candidate due to his malnutrition and severe lung disease. 4. Urinary tract infection with recent Cipro, Bactrim and Amoxil use. 5. Severe chronic obstructive pulmonary disease. 6. Acute anemia without clinical signs of blood loss. This may be dilutional. 7. History of left-sided video-assisted thoracoscopic surgery and pleurodesis. 8. History of pancreatic ampullary mass, status post endoscopic ultrasound and fine needle aspiration in 2015. 9. History of falls. 10. Protein calorie malnutrition, albumin is 1.9. 11. Hyperglycemia, which may be secondary to steroids. 12. Hypomagnesemia and hypophosphatemia as well as hypokalemia. PLAN: Neurologic: Treat pain conservatively with acetaminophen first. Presently, he is pain free. Pulmonary: I will schedule bronchodilators rather than having them be p.r.n. Continue IV steroids and begin chest percussion. Wean FIO2 as we are able. Cardiovascular: No acute issues presently. Follow blood pressure carefully. He may become septic again if indeed the collection in his abdomen is related to a ruptured gallbladder. It is very difficult to know at this point. GI: Maintain n.p.o. and follow serial lactic acid. No plans for surgery at this point. Consider Protonix infusion as a perforated duodenal ulcer is also on the differential for causing his intraabdominal collection. He will need a speech evaluation eventually. Renal: Replete electrolytes as needed and follow creatinine. Continue normal saline at 125 mL per hour. Heme: Follow H\T\H and watch for signs of bleeding. Hold on any pharmacologic DVT prophylaxis secondary to the possibility of an abdominal procedure. Infectious disease: Continue azithromycin and Zosyn. Since I believe this to be an aspiration pneumonia and he is improving on his present regimen, I am going to hold on double covering for pseudomonas as well as MRSA coverage. That can definitely be redressed should he worsen. Consider adding Flagyl. We will watch and wait for now. Many thanks to Dr. Álvarez for his assistance in this patient's care. He is a DNR resuscitation status. He is definitely a poor candidate for surgical procedure. Please call me with any questions or concerns. Critical care time 60 minutes. MTDD
[2016-06-16] MEDS ORDERED: ALBUMIN HUMAN 25% 12.5 GM/50 ML VIAL IV ONE (17:15)
[2016-06-16] MEDS: SODIUM CHLORIDE 0.45% 1000ML 1,000 ML IV SCH (17:20)
[2016-06-16] MEDS ORDERED: SODIUM CHLORIDE 0.9% 250ML 250 ML IV SCH (17:45)
[2016-06-16] MEDS ORDERED: FAMOTIDINE IV INJ 20 MG in DEXTROSE 5% 100ML 100 ML IV SCH (21:00)
[2016-06-16] MEDS: AZITHROMYCIN IV 500 MG in DEXTROSE 5% 250ML 250 ML IV SCH (21:05)
[2016-06-16] MEDS: PANTOprazole INJ 40 MG in SYRINGE 0 ML IV SCH (21:05)
[2016-06-17] VITALS (18 sets, daily range): BP systolic 84–133; BP diastolic 49–76; PULSE 75–104; TEMP 35.9–36.5; O2SAT 92–99
[2016-06-17] MEDS: SODIUM CHLORIDE 0.45% 1000ML 1,000 ML IV SCH ×3 (01:07→22:16)
[2016-06-17] MEDS: ALBUT/IPRATROP 3MG/0.5MG NEB 3 ML VIAL INH SCH ×4 (01:45→19:18)
[2016-06-17] MEDS: INSULIN ASPART 100 UNITS/ML 3 ML PEN SC SCH ×3 (05:29→17:35)
[2016-06-17] MEDS: METHYLPREDNISOLONE IV 60 MG in SYRINGE 0 ML IV SCH (05:37)
[2016-06-17 05:40] LABS: HEMATOCRIT 26.7 % (42-52); MEAN CORPUSCULAR HEMOGLOBIN 28.7 pg (25-34); MEAN PLATELET VOLUME 8.7 fL (7.4-10.4); PLATELET COUNT 198 K/uL (130-400); RED BLOOD COUNT 3.07 M/uL (4.7-6.1); WHITE BLOOD COUNT 22.79 K/uL (4.8-10.8)
[2016-06-17 05:49] LABS: BUN/CREATININE RATIO 49.1 (10-20); CALCIUM 6.3 mg/dl (8.5-10.1); CREATININE 0.62 mg/dl (0.60-1.40)
[2016-06-17 05:57] LABS: ALB/GLOB RATIO 0.6 (0.9-2); PHOSPHORUS 3.1 mg/dl (2.5-4.9)
[2016-06-17 06:00] LABS: BASO ABS # 0.01 K/uL (0-0.2); COMPLETE YES; ECHINOCYTES 2+; IG% 0.5 %; LYMPH % 1.3 %; LYMPH ABS # 0.29 K/uL (1.2-3.4); NEUT % 95.2 %
--- NOTE | 2016-06-17 07:09 | SURGERY PROGRESS NOTE ---
DATE: 06/17/2016 Pancho is resting comfortably with no apparent problems. I asked him compared to yesterday and he has felt about the same. He denies any abdominal pain, denies any nausea. His last vitals showed a temperature of 36.3, pulse 83, respirations 21, blood pressure 110/62, O2 sat is 93 on 2 liters. I\T\O, he had 350 of urine overnight. LABORATORY: Shows a white count of 22.79 which is elevated compared to yesterday, but he is on steroids. His hemoglobin is 8.8, pretty much stable, does have a left shift. His abdomen is completely benign. He has moved his bowels twice yesterday. At this point, we will continue nonoperative management. I debated whether or not to reimage him at this time, but since clinically he seems to be about the same or maybe possibly a little bit more improved since he has no abdominal discomfort, I would wait and hold off at this. It may be worthwhile if clinical picture dictates to repeat a CAT scan in a few days to monitor that fluid collection or hematoma in the right upper quadrant.
--- NOTE | 2016-06-17 07:23 | DIAGNOSTIC IMAGING REPORT ---
CHEST ONE VIEW PORTABLE CLINICAL HISTORY: PNA dyspnea COMPARISON STUDY: 06/16/2016 FINDINGS: Slightly progressive right basilar infiltrate. Unchanged left basilar infiltrate. A sign emphysematous change. Unchanged upper lobe fibrotic change. Central catheter remains in superior vena cava. IMPRESSION: Slightly progressive right basilar parenchymal infiltrative change. All remaining components of the study are similar. Electronically signed by: Lorenzo Covington M.D. 06/17/2016 7:21 AM Dictated Date/Time: 06/17/2016 7:19 AM
[2016-06-17] MEDS: POTASSIUM CHLR 20 MEQ / WTR 20 MEQ in PREMIXED WATER 100 ML IV SCH ×2 (07:44→10:03)
[2016-06-17] MEDS: PIPERACILL/TAZOBAC IV 3.375 GM in DEXTROSE 5% 100ML 100 ML IV SCH ×2 (07:45→15:42)
[2016-06-17] MEDS: PANTOprazole INJ 40 MG in SYRINGE 0 ML IV SCH ×2 (07:45→20:28)
[2016-06-17 08:22] LABS: INR 1.1 (0.9-1.1); PARTIAL THROMBOPLASTIN RATIO 1.3; PROTHROMBIN TIME (PATIENT) 11.5 SECONDS (9.0-12.0)
--- NOTE | 2016-06-17 09:05 | Family Medicine Progress Note ---
Progress Note Date of Service Jun 17, 2016. Subjective Pt evaluation today including: conversation w/ patient, physical exam, chart review, lab review (w), review of studies, review of inpatient medication list Voiding: vail catheter in place Appears more alert this morning than yesterday. Denies shortness of breath, chest pain, abdominal pain. On nasal cannula when seen. All Other Systems: Reviewed and Negative Medications Current Inpatient Medications Medications (Trade) Dose Ordered Sig/Anjum Route Start Time Stop Time Status Last Admin Dose Admin Azithromycin/ Dextrose (Zithromax IV/D5 250ml) 255 ml @ 125 mls/hr Q24H IV 06/15/16 21:00 06/22/16 20:59 06/16/16 21:05 125 MLS/HR Acetaminophen (Tylenol Tab) 650 mg Q4H PRN PO 06/15/16 19:45 07/15/16 19:44 Morphine Sulfate (MoRPHine SULFATE INJ) 2 mg Q2H PRN IV 06/15/16 19:45 06/29/16 19:44 Albuterol/ Ipratropium 3 ml 3 ml Q6R INH 06/15/16 21:00 07/15/16 20:59 06/17/16 07:47 3 ML Piperacillin Sod/ Tazobactam Sod/ Dextrose (Zosyn Iv/D5 100ml) 115 ml @ 28.75 mls/ hr Q8H IV 06/16/16 00:00 06/23/16 00:00 06/17/16 07:45 28.75 MLS/HR Heparin Sodium (Porcine) (Heparin Sq 5000 Unit/0.5ml) 5,000 unit Q8 SQ 06/15/16 22:00 07/15/16 21:59 Future Hold 06/16/16 06:11 5,000 UNIT Albuterol Sulfate (Ventolin 0.083% 2.5MG/3ML Neb) 2.5 mg Q4H PRN INH 06/15/16 21:15 07/15/16 21:14 Piperacillin Sod/ Tazobactam Sod 1 ea 1 ea UD PRN N/A 06/15/16 21:15 07/15/16 21:14 Methylprednisolone Sodium Succinate/ Syringe (Solu-Medrol IV/ Syringe) 0.96 ml @ 1.5 mls/min Q6 IV 06/16/16 00:00 07/16/16 00:00 06/17/16 05:37 1.5 MLS/MIN Insulin Aspart (novoLOG ASPART) SLIDING SCALE G... Q6 SC 06/16/16 01:45 07/16/16 01:44 06/16/16 02:27 3 UNITS Glucose (Glucose 40% Gel) 15-30 GRAMS 15 GRAMS... UD PRN PO 06/16/16 02:00 07/16/16 01:59 Glucose (Glucose Chew Tab) 4-8 Tablets 4 Tabl... UD PRN PO 06/16/16 02:00 07/16/16 01:59 Dextrose (Dextrose 50% 50ML Syringe) 25-50ML OF 50% DW IV FOR... UD PRN IV 06/16/16 02:00 07/16/16 01:59 Glucagon (Glucagon Inj) 1 mg UD PRN SQ 06/16/16 02:00 07/16/16 01:59 Heparin Sodium (Porcine) 5 ml 5 ml PRN PRN FLUSH 06/16/16 13:00 07/16/16 12:59 Pantoprazole Sodium 40 mg/ Syringe 10 ml @ 5 mls/min DAILY@09,21 IV 06/16/16 21:00 07/16/16 20:59 06/17/16 07:45 5 MLS/MIN Sodium Chloride 1,000 ml @ 100 mls/hr Q10H IV 06/16/16 16:30 07/16/16 16:29 06/17/16 01:07 100 MLS/HR Potassium Chloride/Prmx (Kcl 20 Meq / Wtr/Premixed Water) 100 ml @ 50 mls/hr Q2H IV 06/17/16 07:30 06/17/16 11:29 06/17/16 07:44 50 MLS/HR Objective Vital Signs Date Time Temp Pulse Resp B/P Pulse Ox O2 Delivery O2 Flow Rate FiO2 06/17/16 07:48 76 14 93 Nasal Cannula 3.0 06/17/16 06:00 83 21 110/62 93 Nasal Cannula 2.0 06/17/16 04:00 92 Nasal Cannula 2.0 06/17/16 04:00 36.3 88 22 103/60 93 Nasal Cannula 2.0 06/17/16 02:12 92 23 102/66 94 Nasal Cannula 2.0 06/17/16 01:45 80 14 98 Nasal Cannula 4.0 06/17/16 00:01 36.5 15 96/55 99 Nasal Cannula 4.0 06/16/16 23:59 99 Nasal Cannula 4.0 40 06/16/16 23:28 99 Nasal Cannula 6.0 06/16/16 22:00 83 20 95/63 99 Nasal Cannula 6.0 06/16/16 22:00 Nasal Cannula 6.0 06/16/16 20:00 94 Venturi Mask 15.0 40 06/16/16 20:00 36.0 93 22 113/72 94 Venturi Mask 15.0 40 06/16/16 19:36 89 16 93 Venturi Mask 12.0 40 06/16/16 18:01 83 24 110/65 94 Venturi Mask 15.0 40 06/16/16 16:00 91 Venturi Mask 15.0 40 06/16/16 16:00 36.6 87 22 114/71 91 Venturi Mask 15.0 40 06/16/16 14:22 81 18 89 Venturi Mask 12.0 40 06/16/16 14:01 70 21 128/61 92 06/16/16 12:00 36.6 90 18 131/57 94 Venturi Mask 15.0 40 06/16/16 12:00 96 Venturi Mask 15.0 40 06/16/16 10:00 36.4 86 18 113/51 91 Physical Exam General Appearance: + thin (appears malnourished) Eyes: + pertinent finding (medial deviation of right eye with pupil dilatation , 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) Neck: supple, no JVD Respiratory/Chest: no respiratory distress, no accessory muscle use, + crackles (improved air entry b/l but still with diffuse ) Cardiovascular: regular rate, rhythm, no murmur Abdomen: normal bowel sounds, non tender, soft, + mass (right sided of abdomen) Extremities: no pedal edema, no calf tenderness, normal capillary refill Neurologic/Psychiatric: alert, oriented x 3 Skin: + pertinent finding (neurofibromas) Laboratory Results 06/17/16 05:10 Red Blood Count 3.07, Mean Corpuscular Volume 87.0, Mean Corpuscular Hemoglobin 28.7, Mean Corpuscular Hemoglobin Concent 33.0, Mean Platelet Volume 8.7, Neutrophils (%) (Auto) 95.2, Lymphocytes (%) (Auto) 1.3, Monocytes (%) (Auto) 3.0, Eosinophils (%) (Auto) 0.0, Basophils (%) (Auto) 0.0, Neutrophils # (Auto) 21.70, Lymphocytes # (Auto) 0.29, Monocytes # (Auto) 0.68, Eosinophils # (Auto) 0.00, Basophils # (Auto) 0.01 06/17/16 08:00 06/17/16 05:10 Test 06/16/16 13:20 06/17/16 05:10 06/17/16 05:18 06/17/16 08:00 Urine Color YELLOW Urine Appearance CLOUDY (CLEAR) Urine pH 5.0 (4.5-7.5) Urine Specific [place] 1.017 (1.000-1.030) Urine Protein NEG (NEG) Urine Glucose (UA) NEG (NEG) Urine Ketones NEG (NEG) Urine Occult Blood 3+ (NEG) Urine Nitrite NEG (NEG) Urine Bilirubin NEG (NEG) Urine Urobilinogen NEG (NEG) Urine Leukocyte Esterase LARGE (NEG) Urine WBC (Auto) 10-30 /hpf (0-5) Urine RBC (Auto) >30 /hpf (0-4) Urine Hyaline Casts (Auto) 5-10 /lpf (0-5) Urine Epithelial Cells (Auto) >30 /lpf (0-5) Urine Bacteria (Auto) NEG (NEG) Urine Renal Epithelial Cells 0-5 /lpf (0-5) Urine Yeast (Auto) PRESENT (NONE PRSENT) White Blood Count 22.79 K/uL (4.8-10.8) Red Blood Count 3.07 M/uL (4.7-6.1) Hemoglobin 8.8 g/dL (14.0-18.0) Hematocrit 26.7 % (42-52) Mean Corpuscular Volume 87.0 fL (80-100) Mean Corpuscular Hemoglobin 28.7 pg (25-34) Mean Corpuscular Hemoglobin Concent 33.0 g/dl (32-36) Platelet Count 198 K/uL (130-400) Mean Platelet Volume 8.7 fL (7.4-10.4) Neutrophils (%) (Auto) 95.2 % Lymphocytes (%) (Auto) 1.3 % Monocytes (%) (Auto) 3.0 % Eosinophils (%) (Auto) 0.0 % Basophils (%) (Auto) 0.0 % Neutrophils # (Auto) 21.70 K/uL (1.4-6.5) Lymphocytes # (Auto) 0.29 K/uL (1.2-3.4) Monocytes # (Auto) 0.68 K/uL (0.11-0.59) Eosinophils # (Auto) 0.00 K/uL (0-0.5) Basophils # (Auto) 0.01 K/uL (0-0.2) RDW Standard Deviation 54.1 fL (36.4-46.3) RDW Coefficient of Variation 16.9 % (11.5-14.5) Immature Granulocyte % (Auto) 0.5 % Immature Granulocyte # (Auto) 0.11 K/uL (0.00-0.02) Echinocytes 2+ Anion Gap 11.0 mmol/L (3-11) Est Creatinine Clear Calc Drug Dose 64.5 ml/min Estimated GFR () 111.7 Estimated GFR (Non- 96.4 BUN/Creatinine Ratio 49.1 (10-20) Calcium Level 6.3 mg/dl (8.5-10.1) Phosphorus Level 3.1 mg/dl (2.5-4.9) Magnesium Level 2.0 mg/dl (1.8-2.4) Total Bilirubin 0.3 mg/dl (0.2-1) Aspartate Amino Transf (AST/SGOT) 13 U/L (15-37) Alanine Aminotransferase (ALT/SGPT) 8 U/L (12-78) Alkaline Phosphatase 116 U/L (45-117) Total Protein 5.1 gm/dl (6.4-8.2) Albumin 2.0 gm/dl (3.4-5.0) Globulin 3.1 gm/dl (2.5-4.0) Albumin/Globulin Ratio 0.6 (0.9-2) Bedside Glucose 131 mg/dl (70-99) Prothrombin Time 11.5 SECONDS (9.0-12.0) Prothromb Time International Ratio 1.1 (0.9-1.1) Activated Partial Thromboplast Time 35.0 SECONDS (21.0-31.0) Partial Thromboplastin Ratio 1.3 Lactic Acid Level 0.8 mmol/L (0.4-2.0) Date/Time Source Procedure Growth Status 06/16/16 11:25 Stool C.difficile Toxin B Gene (PCR) - Final No C. difficile toxin B gene detected Complete Assessment and Plan 76 year old male w/Hx advanced COPD, neurofibromatosis, BPH w/retention and chronic Vail present with chest pain and shortness of breath Sepsis (source chest) - US abdomen - abnormal gallbladder with potential hemorrhage versus abnormal soft tissue within the distended gallbladder lumen. Distended biliary ductal system. Pending CT as ordered by ICU. Stat LFTs although non obstruction LFTs on admission - lactic acid improved - IVF 100 MLS/HR continue - Continue azithromycin and Tazocin (MRSA negative) Acute hypoxic respiratory failure - Continue to maintain sats > 90%, no CO2 retention so can go higher but I suspect his saturations run low most of the time given his severe emphysema Metabolic acidosis with normal anion gap and renal function - UO good - unclear cause of this ?GI losses = the mass on CT, bicarb was low normal on ABG 06/15. Continue to monitor. Plan to re-image mass tomorrow Severely enlarged gallbladder on CT with possible free air suggestive of perforation however he has not had a rigid or tender abdomen whenever I have examined him therefore I'm unclear how acute the fluid collection is given biliary ductal dilatation on MRI (although much less severe) in 2015 present. Given previous pancreatic mass would favor an obstructive process although his LFTs do not suggest this. I suspect this has been developing for a while and is not the cause of his acute illness. Aspiration pneumonia - bibasal consolidation on CT R>L. Antibiotics as above. - speech eval when more alert COPD exacerbation - Methylpred 60 mg IV Q6H recommended reduction to ICU team - Skye Normocytic anemia - reduction probably dilutional, appears chronically anemic, will monitor Electrolyte imbalance - hypokalemia, hypomagnesemia, hypophosphatemia - replace as per ICU protocols Non acute History of pancreatic ampullary mass, status post endoscopic ultrasound and fine needle aspiration in 2014. Code - DNR/DNI VTE/GI Prophylaxis - chemical on hold secondary to possible hemorrhage - Pantoprazole 40 mg IV BID Disposition - consider transfer down to telemetry in afternoon Resident Physician Supervision Note: I interviewed and examined the patient. Discussed with Dr. Srivastava and agree with findings and plan as documented in the note. Any exceptions or clarifications are listed here: None Documented By: Flynn Holman no new complaints. ros otherwise negative except for as above vitals noted nad breathing unlabored pneumonia, abdominal pathology - continue current treatment. as above
--- NOTE | 2016-06-17 10:04 | Critical Care Progress Note ---
Critical Care Progress Note Date of Service Jun 17, 2016. 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 Sepsis secondary to aspiration PNA (bibasilar consolidation) leading to acute hypoxic respiratory failure 2. potential fluid collection intra - abdominally of unclear etiology - poor surgical candidate 3. Recurrent UTI- history of treatment of Cipro/ Bactrim and Amoxil 4. Chronic vail for BPH/ retention 5. Savana UTI 6. Severe COPD 7. Acute anemia without any clear signs of blood loss, possibly into the intraabdominal cavity? 8. history of left sided video- assisted thoracoscopic surgery and pleurodesis 9. History of panceatic ampullary mass- FNA in 2014 10. H/O falls 11. Malnutrition/ hypomagnesemia/ hypophosphatemia NVS - currently alert however does only provide limited history - continue to reorient as needed and screen for delirium/ change in mental status CVS - continue to monitor on tele RVS - NC 2.0 L and adjust accordingly - goal is 88-93% considering history of emphysema - Chest percussion - flutter valve - Sputum culture - There was mediastinal node calcifications indicating a granulomatous disease - difficult to acquire because does not expectorate well - Methylpred transition to 40 mg q 8 - duoneb q6h GI - General surgery consult - appreciate input - not a good surgical candidate - CT abd no contrast- reveals potential free air in ant abd and intraabdominal fluid collection - alk phos has improved - NPO, will hold off of speech therapy for now - Phosphorous - replete accordingly - protonix for GI prophylaxis - Savana was cultured again- will start diflucan - follow I&O especially since patient received so much fluid HEME - hgb decreased from 11 to 9 - follow HH qid however most likely secondary to the fluid resus - fecal occult and type and screen - trend cbc- leukocytosis cause by leukemoid reaction? - PICC for improved access ID - Zosyn and Azithro - MRSA neg- will hold vanco for now FEN - NSS @ 100cc/h - hypokalemia- trend and replete as needed - follow BMP ENDO - Insulin ISS with CF only DVT Prophylaxis - heparin held in case surgery will be done - SCD until that is determined PT/OT Resident Physician Supervision Note/Marketing Analytics Manager Attending I interviewed and examined the patient. Discussed with Dr. Bartlett and agree with findings and plan as documented in the note. Any exceptions or clarifications are listed here: The patient's care was discussed in detail on multidisciplinary rounds. There were not acute events overnight. I have reviewed the VS, I/O, medications, labs , micro data and images/reports. He has been hemodynamically stable with improved oxygen requirements over the past 24 hours. He still is unable to expectorate his sputum and is getting chest percussion, bronchodilators and Zosyn/Zmax for aspiration pneumonia and his sepsis is resolved. His abdominal exam is quite benign despite the large collection seen on CT yesterday. H/H is hovering around 9 after initial drop which could have also been due to dilution. Lactate WNL and following it and H/H serially. No intervention planned - poor surgical candidate with severe COPD, malnutrition and overall weakness but would obtain abdominal CT in f/u if clinical status changes. Etiology of leukocytosis not clear - could be infection, bleeding, steroids, possible fungal UTI. Culture data is not available yet but U/A does show yeast. Diflucan added empirically, vail was changed yesterday. He is malnourished but unable to allow enteral feeds for the time being due to possible intrabdominal process/free air - continues on BID protonix. He does not have a formal POA and lists a person as daughter for next of kin, however, my understanding is that she is not his daughter. This was discussed with case management on rounds and I also suggested to the patient that formal POA be established. If his respiratory status remains stable today - (he is on 2LNC) and has no other significant changes, he can be transferred to telemetry this afternoon. Documented By: Marleni Vera Consults & Procedures Consultants: Dr Álvarez- Gen surg Procedures: NA Data Medications: Current Inpatient Medications Medications (Trade) Dose Ordered Sig/Anjum Route Start Time Stop Time Status Last Admin Dose Admin Azithromycin/ Dextrose (Zithromax IV/D5 250ml) 255 ml @ 125 mls/hr Q24H IV 06/15/16 21:00 06/22/16 20:59 06/16/16 21:05 125 MLS/HR Acetaminophen (Tylenol Tab) 650 mg Q4H PRN PO 06/15/16 19:45 07/15/16 19:44 Morphine Sulfate (MoRPHine SULFATE INJ) 2 mg Q2H PRN IV 06/15/16 19:45 06/29/16 19:44 Albuterol/ Ipratropium 3 ml 3 ml Q6R INH 06/15/16 21:00 07/15/16 20:59 06/17/16 07:47 3 ML Piperacillin Sod/ Tazobactam Sod/ Dextrose (Zosyn Iv/D5 100ml) 115 ml @ 28.75 mls/ hr Q8H IV 06/16/16 00:00 06/23/16 00:00 06/17/16 07:45 28.75 MLS/HR Heparin Sodium (Porcine) (Heparin Sq 5000 Unit/0.5ml) 5,000 unit Q8 SQ 06/15/16 22:00 07/15/16 21:59 Future Hold 06/16/16 06:11 5,000 UNIT Albuterol Sulfate (Ventolin 0.083% 2.5MG/3ML Neb) 2.5 mg Q4H PRN INH 06/15/16 21:15 07/15/16 21:14 Piperacillin Sod/ Tazobactam Sod 1 ea 1 ea UD PRN N/A 06/15/16 21:15 07/15/16 21:14 Methylprednisolone Sodium Succinate/ Syringe (Solu-Medrol IV/ Syringe) 0.96 ml @ 1.5 mls/min Q6 IV 06/16/16 00:00 06/17/16 11:59 06/17/16 05:37 1.5 MLS/MIN Insulin Aspart (novoLOG ASPART) SLIDING SCALE G... Q6 SC 06/16/16 01:45 07/16/16 01:44 06/16/16 02:27 3 UNITS Glucose (Glucose 40% Gel) 15-30 GRAMS 15 GRAMS... UD PRN PO 06/16/16 02:00 07/16/16 01:59 Glucose (Glucose Chew Tab) 4-8 Tablets 4 Tabl... UD PRN PO 06/16/16 02:00 07/16/16 01:59 Dextrose (Dextrose 50% 50ML Syringe) 25-50ML OF 50% DW IV FOR... UD PRN IV 06/16/16 02:00 07/16/16 01:59 Glucagon (Glucagon Inj) 1 mg UD PRN SQ 06/16/16 02:00 07/16/16 01:59 Heparin Sodium (Porcine) 5 ml 5 ml PRN PRN FLUSH 06/16/16 13:00 07/16/16 12:59 Pantoprazole Sodium 40 mg/ Syringe 10 ml @ 5 mls/min DAILY@09,21 IV 06/16/16 21:00 07/16/16 20:59 06/17/16 07:45 5 MLS/MIN Sodium Chloride 1,000 ml @ 100 mls/hr Q10H IV 06/16/16 16:30 07/16/16 16:29 06/17/16 01:07 100 MLS/HR Potassium Chloride 20 meq/ Prmx 100 ml @ 50 mls/hr Q2H IV 06/17/16 07:30 06/17/16 11:29 06/17/16 07:44 50 MLS/HR Methylprednisolone Sodium Succinate 40 mg/Syringe 0.64 ml @ 1.5 mls/min Q8 IV 06/17/16 14:00 07/17/16 13:59 Fluconazole/ Sodium Chloride/ Prmx (Diflucan IV/ Premixed Nss) 100 ml @ 100 mls/hr DAILY IV 06/17/16 10:00 06/27/16 09:59 UNV I & O: 24-Hour Column 06/17/16 08:00 Intake Total 3934 ml Output Total 1000 ml Balance 2934 ml Vital Signs: Date Time Temp Pulse Resp B/P Pulse Ox O2 Delivery O2 Flow Rate FiO2 06/17/16 08:00 35.9 78 20 110/75 97 Nasal Cannula 2.0 06/17/16 08:00 97 Nasal Cannula 2.0 06/17/16 07:48 76 14 93 Nasal Cannula 3.0 06/17/16 06:00 83 21 110/62 93 Nasal Cannula 2.0 06/17/16 04:00 92 Nasal Cannula 2.0 06/17/16 04:00 36.3 88 22 103/60 93 Nasal Cannula 2.0 06/17/16 02:12 92 23 102/66 94 Nasal Cannula 2.0 06/17/16 01:45 80 14 98 Nasal Cannula 4.0 06/17/16 00:01 36.5 15 96/55 99 Nasal Cannula 4.0 06/16/16 23:59 99 Nasal Cannula 4.0 40 06/16/16 23:28 99 Nasal Cannula 6.0 06/16/16 22:00 83 20 95/63 99 Nasal Cannula 6.0 06/16/16 22:00 Nasal Cannula 6.0 06/16/16 20:00 94 Venturi Mask 15.0 40 06/16/16 20:00 36.0 93 22 113/72 94 Venturi Mask 15.0 40 06/16/16 19:36 89 16 93 Venturi Mask 12.0 40 06/16/16 18:01 83 24 110/65 94 Venturi Mask 15.0 40 06/16/16 16:00 91 Venturi Mask 15.0 40 06/16/16 16:00 36.6 87 22 114/71 91 Venturi Mask 15.0 40 06/16/16 14:22 81 18 89 Venturi Mask 12.0 40 06/16/16 14:01 70 21 128/61 92 06/16/16 12:00 36.6 90 18 131/57 94 Venturi Mask 15.0 40 06/16/16 12:00 96 Venturi Mask 15.0 40 06/16/16 10:00 36.4 86 18 113/51 91 Laboratory Results: Last 24 Hours Test 06/16/16 12:24 06/16/16 13:16 06/16/16 13:20 06/16/16 16:00 Hemoglobin 9.5 g/dL 9.6 g/dL Phosphorus Level 2.4 mg/dl Bedside Glucose 126 mg/dl Urine Color YELLOW Urine Appearance CLOUDY Urine pH 5.0 Urine Specific [place] 1.017 Urine Protein NEG Urine Glucose (UA) NEG Urine Ketones NEG Urine Occult Blood 3+ Urine Nitrite NEG Urine Bilirubin NEG Urine Urobilinogen NEG Urine Leukocyte Esterase LARGE Urine WBC (Auto) 10-30 /hpf Urine RBC (Auto) >30 /hpf Urine Hyaline Casts (Auto) 5-10 /lpf Urine Epithelial Cells (Auto) >30 /lpf Urine Bacteria (Auto) NEG Urine Renal Epithelial Cells 0-5 /lpf Urine Yeast (Auto) PRESENT Lactic Acid Level 1.1 mmol/L Test 06/16/16 17:24 06/16/16 19:55 06/16/16 23:28 06/17/16 05:10 Bedside Glucose 114 mg/dl 136 mg/dl Hemoglobin 9.1 g/dL 8.8 g/dL Lactic Acid Level 0.8 mmol/L White Blood Count 22.79 K/uL Red Blood Count 3.07 M/uL Hematocrit 26.7 % Mean Corpuscular Volume 87.0 fL Mean Corpuscular Hemoglobin 28.7 pg Mean Corpuscular Hemoglobin Concent 33.0 g/dl Platelet Count 198 K/uL Mean Platelet Volume 8.7 fL Neutrophils (%) (Auto) 95.2 % Lymphocytes (%) (Auto) 1.3 % Monocytes (%) (Auto) 3.0 % Eosinophils (%) (Auto) 0.0 % Basophils (%) (Auto) 0.0 % Neutrophils # (Auto) 21.70 K/uL Lymphocytes # (Auto) 0.29 K/uL Monocytes # (Auto) 0.68 K/uL Eosinophils # (Auto) 0.00 K/uL Basophils # (Auto) 0.01 K/uL RDW Standard Deviation 54.1 fL RDW Coefficient of Variation 16.9 % Immature Granulocyte % (Auto) 0.5 % Immature Granulocyte # (Auto) 0.11 K/uL Echinocytes 2+ Sodium Level 141 mmol/L Potassium Level 3.0 mmol/L Chloride Level 111 mmol/L Carbon Dioxide Level 19 mmol/L Anion Gap 11.0 mmol/L Blood Urea Nitrogen 30 mg/dl Creatinine 0.62 mg/dl Est Creatinine Clear Calc Drug Dose 64.5 ml/min Estimated GFR () 111.7 Estimated GFR (Non- 96.4 BUN/Creatinine Ratio 49.1 Random Glucose 122 mg/dl Calcium Level 6.3 mg/dl Phosphorus Level 3.1 mg/dl Magnesium Level 2.0 mg/dl Total Bilirubin 0.3 mg/dl Aspartate Amino Transf (AST/SGOT) 13 U/L Alanine Aminotransferase (ALT/SGPT) 8 U/L Alkaline Phosphatase 116 U/L Total Protein 5.1 gm/dl Albumin 2.0 gm/dl Globulin 3.1 gm/dl Albumin/Globulin Ratio 0.6 Test 06/17/16 05:18 06/17/16 08:00 Bedside Glucose 131 mg/dl Hemoglobin 9.2 g/dL Prothrombin Time 11.5 SECONDS Prothromb Time International Ratio 1.1 Activated Partial Thromboplast Time 35.0 SECONDS Partial Thromboplastin Ratio 1.3 Lactic Acid Level 0.8 mmol/L
[2016-06-17] MEDS ORDERED: CALCIUM GLUCONATE 10% 1,000 MG in SODIUM CHLORIDE 0.9% 50ML 50 ML IV ONE (10:15)
[2016-06-17] MEDS: FLUCONAZOLE / NSS 200 MG in PREMIXED NSS 100 ML IV SCH (10:47)
[2016-06-17] MEDS: METHYLPREDNISOLONE IV 40 MG in SYRINGE 0 ML IV SCH ×2 (14:05→20:28)
[2016-06-17] MEDS: MoRPHine SULFATE 2 MG/ML CARP IV PRN ×3 (15:41→20:28)
[2016-06-17 17:19] LABS: ISTAT ARTERIAL BLOOD GAS HCO3 14 meq/L (19-24); ISTAT ARTERIAL BLOOD GAS PCO2 28 mmHg (35-46); ISTAT ARTERIAL BLOOD GAS PO2 78 mmHg (80-95); ISTAT ARTERIAL BLOOD GAS pH 7.31 (7.35-7.45); ISTAT CARBON DIOXIDE 15 mEq/l (24-31); ISTAT DELIVERY SYSTEM VentiMask; ISTAT FIO2 40 %; ISTAT SITE R Brachial
[2016-06-17 19:19] LABS: HEMATOCRIT 29.4 % (42-52)
[2016-06-17 19:40] LABS: CALCIUM 6.7 mg/dl (8.5-10.1); CREATININE 0.67 mg/dl (0.60-1.40); POTASSIUM 3.8 mmol/L (3.5-5.1)
[2016-06-17] MEDS: AZITHROMYCIN IV 500 MG in DEXTROSE 5% 250ML 250 ML IV SCH (20:29)
[2016-06-17 22:39] LABS: ISTAT ALLEN TEST Pass; ISTAT ARTERIAL BLOOD GAS HCO3 15 meq/L (19-24); ISTAT ARTERIAL BLOOD GAS PCO2 31 mmHg (35-46); ISTAT ARTERIAL BLOOD GAS PO2 74 mmHg (80-95); ISTAT ARTERIAL BLOOD GAS pH 7.29 (7.35-7.45); ISTAT CARBON DIOXIDE 16 mEq/l (24-31); ISTAT DELIVERY SYSTEM VentiMask; ISTAT FIO2 40 %; ISTAT SITE R Radial
[2016-06-17] MEDS ORDERED: SODIUM BICARBONATE 4.2% INJ 10 ML SYR IV STA (22:39)
[2016-06-17] MEDS ORDERED: SODIUM BICARB 8.4% INJ 50 MEQ/50 ML SYR IV STA (22:52)
--- NOTE | 2016-06-17 23:10 | Progress Note ---
Progress Note Date of Service Jun 17, 2016. Progress Note Patient noted to be more acidotic on ABG around 5pm. Discussed with Dr Vera. Patient reviewed on 2nd floor and noted to have increased work of breathing but still with good air entry b/l. Expect he will fatigue during the night, causing increasing acidosis. Therefore decided to transfer back to ICU. Patient reviewed again at 22:20. He appears less alert, to pain only, shallower breaths, RR8. Repeat ABG @ 22:26 pH 7.29 pCO2 30.8 pO2 74, HCO3. Discussed with Dr Ritchie and Dr Vera and made aware of ABG and examination findings. Patient will be placed on BiPAP 10/3 (previous pneumothorax and large bulla on CT). Morphine d/c. 0.5 amp Bicarb. Patient handed over to night team. Informed Tisha BELTRAN, of extremely poor prognosis. She asks to be contacted on [phone] if he dies tonight and I will call her in the morning if he makes it through this night. She can next come in around 1pm tomorrow Resident Tracking Resident Involvement: Resident Care Provided Care Provided: Adult Hospital Medicine
[2016-06-17] MEDS ORDERED: ALBUMIN HUMAN 25% 12.5 GM/50 ML VIAL IV STA (23:22)
[2016-06-17] MEDS ORDERED: NALOXONE HCL 0.4 MG/1 ML VIAL/CARP IV STA (23:40)
[2016-06-17] MEDS ORDERED: NALOXONE HCL 0.4 MG/1 ML VIAL/CARP ONE (23:46)
[2016-06-18] VITALS (35 sets, daily range): BP systolic 88–141; BP diastolic 48–124; PULSE 82–284; TEMP 35.8–36.7; O2SAT 88–100
[2016-06-18] MEDS: PIPERACILL/TAZOBAC IV 3.375 GM in DEXTROSE 5% 100ML 100 ML IV SCH ×4 (00:23→23:56)
[2016-06-18] MEDS: ALBUT/IPRATROP 3MG/0.5MG NEB 3 ML VIAL INH SCH ×4 (01:55→19:35)
[2016-06-18 05:21] LABS: BASO % 0.1 %; BASO ABS # 0.01 K/uL (0-0.2); IG% 0.6 %; LYMPH ABS # 0.39 K/uL (1.2-3.4); MEAN CELL VOLUME 88.3 fL (80-100); MEAN CORPUSCULAR HEMOGLOBIN 27.4 pg (25-34); MEAN CORPUSCULAR HGB CONC 31.1 g/dl (32-36); MEAN PLATELET VOLUME 8.6 fL (7.4-10.4); NEUT % 95.3 %; PLATELET COUNT 226 K/uL (130-400); RED BLOOD COUNT 3.17 M/uL (4.7-6.1); WHITE BLOOD COUNT 19.44 K/uL (4.8-10.8)
[2016-06-18 05:52] LABS: COMPLETE YES; ECHINOCYTES 1+
[2016-06-18 05:54] LABS: BUN/CREATININE RATIO 36.7 (10-20); CALCIUM 6.7 mg/dl (8.5-10.1); CREATININE 0.72 mg/dl (0.60-1.40); POTASSIUM 3.7 mmol/L (3.5-5.1)
[2016-06-18] MEDS: METHYLPREDNISOLONE IV 40 MG in SYRINGE 0 ML IV SCH ×2 (06:00→14:10)
[2016-06-18] MEDS: INSULIN ASPART 100 UNITS/ML 3 ML PEN SC SCH ×4 (06:47→16:19)
--- NOTE | 2016-06-18 07:10 | SURGERY PROGRESS NOTE ---
DATE: 06/18/2016 Pancho is back in the ICU. However, this morning he is alert. He is not complaining of any abdominal pain. His last vitals shows him ____ 110/90 and heart rate is 85. Apparently, he was transferred last evening to our telemetry where at that time his vitals showed slight deterioration. He was up there for approximately an hour and came back down here. His present this morning showed a BUN of 26, creatinine 0.72, hemoglobin has been stable at about 8.7-9 and white count is 19.44. He still has a left shift; this has slightly decreased from yesterday as far as his white count and left shift ____ His abdomen is completely benign. I do not find any tenderness. There is some guarding in the right upper quadrant. At this point, I think we merits ____ to follow up on repeat CAT scan. His last vitals as stated have improved, but he did deteriorate significantly last evening, where the etiology of that is uncertain. His lactic acid this morning is 1.2.
[2016-06-18 07:13] LABS: ESTIMATED AVERAGE GLUCOSE 126 mg/dl; HA1C FLAG Normal (Normal)
[2016-06-18 07:15] LABS: PHOSPHORUS 2.3 mg/dl (2.5-4.9)
--- NOTE | 2016-06-18 07:32 | DIAGNOSTIC IMAGING REPORT ---
CHEST ONE VIEW PORTABLE HISTORY: dyspnea COMPARISON: Chest 06/17/2016. FINDINGS: Severe emphysema. No pneumothorax. Suture material within the left upper lobe. Right PICC terminates in the distal SVC. The heart is normal in size. Small bilateral pleural effusions persist. Right lower lobe airspace opacity and left lung interstitial thickening are not significantly changed. IMPRESSION: 1. No significant change compared to the prior study. 2. Right lower lobe airspace opacity persists. This favors a pneumonia. Recommend follow-up to resolution. 3. Left lung interstitial thickening and small bilateral pleural effusions are again noted. Electronically signed by: Ruiz Bejarano M.D. 06/18/2016 7:29 AM Dictated Date/Time: 06/18/2016 7:28 AM
[2016-06-18] MEDS ORDERED: FUROSEMIDE INJ 20 MG in SYRINGE 0 ML IV ONE (08:00)
--- NOTE | 2016-06-18 08:08 | DIAGNOSTIC IMAGING REPORT ---
ABDOMEN AND PELVIS CT WITHOUT CONTRAST CT DOSE: 292.02 mGy.cm HISTORY: f/u RUQ fluid collection and free air TECHNIQUE: Multiaxial CT images of the abdomen and pelvis were performed without contrast. COMPARISON STUDY: Abdomen and pelvis CT 06/16/2016. FINDINGS: Small to moderate bilateral pleural effusions have increased in size. Associated lower lobe consolidation may represent compressive atelectasis or pneumonia. Emphysema. There is no pneumoperitoneum or pneumatosis. Apparent free air on the prior study was due to a distended colon. This has since partially decompressed. Gas within the bladder lumen likely due to the Juares catheter. Dense material within the bladder. Bladder is mildly distended. No suspicious lytic or blastic osseous lesions. The visualized unenhanced spleen and adrenal glands are unremarkable. There is a right extrarenal pelvis. No hydronephrosis. Hyperdense material within the bilateral renal collecting systems is again noted. No retroperitoneal lymphadenopathy. Severe intra and extra hepatic bile duct dilatation. Common bile duct measures up to 14 mm. Pancreas is not well visualized due to the lack of intravenous contrast. However, the main pancreatic duct appears to be distended up to 7 mm. Pancreatic tail is slightly atrophic. No change in the large fluid collection within the right upper quadrant which measures 12 cm. A normal gallbladder is not identified. Therefore, this favors a distended gallbladder. No definite hepatic masses. Suboptimal evaluation for bowel pathology due to the lack of intravenous and oral contrast. However, there is no definite bowel wall thickening or obstruction. Small amount of ascites. Moderate body wall edema. IMPRESSION: 1. No change in the fluid filled structure within the right upper quadrant which measures 12 cm in diameter. This favors a distended gallbladder. There is also severe intra and extrahepatic bile duct dilatation with mild dilatation of the main pancreatic duct. Therefore, these findings could be due to an occult pancreatic head lesion. Recommend follow-up ERCP for further evaluation. 2. No pneumoperitoneum. 3. No evidence for bowel obstruction. 4. Progression of the pleural effusions, small amount of ascites, and body wall edema. 5. Hyperdense material within the renal collecting systems and bladder, unchanged. 6. Lower lobe opacities could be due to compressive atelectasis or pneumonia. Electronically signed by: Ruiz Bejarano M.D. 06/18/2016 8:05 AM Dictated Date/Time: 06/18/2016 7:58 AM
--- NOTE | 2016-06-18 08:21 | Family Medicine Progress Note ---
Progress Note Date of Service Jun 18, 2016. Subjective Pt evaluation today including: conversation w/ patient, physical exam Pain: None Voiding: vail catheter in place After having increased work of breathing yesterday followed by low RR and hypotension (likely induced by morphine given due to respiratory distress; this was reversed with naloxone) he appears relatively more stable this morning when seen but his overal prognosis remains extremely poor. He wakes to voice. Denies pain in chest or abdomen and denies shortness of breath. He was unable to engage in any conversation about goals of care and responds to most of my questions with "I'm ok". Additional Comments: Unable to obtain from patient due to limited ability to discuss complaints Medications Current Inpatient Medications Medications (Trade) Dose Ordered Sig/Anjum Route Start Time Stop Time Status Last Admin Dose Admin Azithromycin/ Dextrose (Zithromax IV/D5 250ml) 255 ml @ 125 mls/hr Q24H IV 06/15/16 21:00 06/22/16 20:59 06/17/16 20:29 125 MLS/HR Acetaminophen (Tylenol Tab) 650 mg Q4H PRN PO 06/15/16 19:45 07/15/16 19:44 Albuterol/ Ipratropium 3 ml 3 ml Q6R INH 06/15/16 21:00 07/15/16 20:59 06/18/16 01:55 3 ML Piperacillin Sod/ Tazobactam Sod/ Dextrose (Zosyn Iv/D5 100ml) 115 ml @ 28.75 mls/ hr Q8H IV 06/16/16 00:00 06/23/16 00:00 06/18/16 00:23 28.75 MLS/HR Heparin Sodium (Porcine) (Heparin Sq 5000 Unit/0.5ml) 5,000 unit Q8 SQ 06/15/16 22:00 07/15/16 21:59 Future Hold 06/16/16 06:11 5,000 UNIT Albuterol Sulfate (Ventolin 0.083% 2.5MG/3ML Neb) 2.5 mg Q4H PRN INH 06/15/16 21:15 07/15/16 21:14 Piperacillin Sod/ Tazobactam Sod (Consult) 1 ea UD PRN N/A 06/15/16 21:15 07/15/16 21:14 Insulin Aspart (novoLOG ASPART) SLIDING SCALE G... Q6 SC 06/16/16 01:45 07/16/16 01:44 06/16/16 02:27 3 UNITS Glucose (Glucose 40% Gel) 15-30 GRAMS 15 GRAMS... UD PRN PO 06/16/16 02:00 07/16/16 01:59 Glucose (Glucose Chew Tab) 4-8 Tablets 4 Tabl... UD PRN PO 06/16/16 02:00 07/16/16 01:59 Dextrose (Dextrose 50% 50ML Syringe) 25-50ML OF 50% DW IV FOR... UD PRN IV 06/16/16 02:00 07/16/16 01:59 Glucagon (Glucagon Inj) 1 mg UD PRN SQ 06/16/16 02:00 07/16/16 01:59 Heparin Sodium (Porcine) 5 ml 5 ml PRN PRN FLUSH 06/16/16 13:00 07/16/16 12:59 Pantoprazole Sodium 40 mg/ Syringe 10 ml @ 5 mls/min DAILY@09,21 IV 06/16/16 21:00 07/16/16 20:59 06/17/16 20:28 5 MLS/MIN Sodium Chloride 1,000 ml @ 100 mls/hr Q10H IV 06/16/16 16:30 07/16/16 16:29 06/17/16 22:16 100 MLS/HR Methylprednisolone Sodium Succinate 40 mg/Syringe 0.64 ml @ 1.5 mls/min Q8 IV 06/17/16 14:00 07/17/16 13:59 06/18/16 06:00 1.5 MLS/MIN Fluconazole/ Sodium Chloride 200 mg/Prmx 100 ml @ 100 mls/hr DAILY@1000 IV 06/17/16 10:00 06/27/16 09:59 06/17/16 10:47 100 MLS/HR Potassium Chloride/Prmx (Kcl 10 Meq / Wtr/Premixed Water) 100 ml @ 100 mls/hr Q1H IV 06/18/16 08:00 06/18/16 11:59 Objective Vital Signs Date Time Temp Pulse Resp B/P Pulse Ox O2 Delivery O2 Flow Rate FiO2 06/18/16 06:13 85 17 116/65 98 Venturi Mask 10.0 35 06/18/16 04:00 36.0 83 16 88/57 96 Venturi Mask 10.0 35 06/18/16 04:00 97 Venturi Mask 10.0 35 06/18/16 02:00 96 92/60 97 Venturi Mask 10.0 35 06/18/16 01:55 87 14 100 Venturi Mask 12.0 40 06/18/16 00:01 36.5 86 98/62 99 BiPAP 12.0 40 Venturi Mask 06/18/16 00:00 99 BiPAP 12.0 40 Venturi Mask 06/17/16 22:54 88 98 40 06/17/16 21:01 91 8 84/49 99 06/17/16 20:04 12.0 06/17/16 20:02 104 22 92/60 97 06/17/16 20:00 99 Venturi Mask 40 06/17/16 20:00 36.3 98 23 92/56 99 Venturi Mask 10.0 40 06/17/16 19:19 76 14 96 Venturi Mask 12.0 40 06/17/16 18:07 36.1 93 22 101/64 96 Venturi Mask 15.0 45 06/17/16 16:00 36.2 101 22 117/67 93 Nasal Cannula 2.0 06/17/16 16:00 93 Nasal Cannula 2.0 06/17/16 14:24 82 14 96 Nasal Cannula 2.0 06/17/16 14:00 85 24 133/76 95 Nasal Cannula 2.0 06/17/16 12:00 94 Nasal Cannula 2.0 06/17/16 12:00 36.2 81 22 120/67 94 Nasal Cannula 2.0 06/17/16 10:00 75 20 99/60 96 Nasal Cannula 2.0 Physical Exam General Appearance: no apparent distress, + cachetic Eyes: + pertinent finding (medial deviation of right eye with pupil dilatation , 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, cataract operation in Jan but poor compliance with meds after this) Neck: supple, + JVD Respiratory/Chest: no respiratory distress, no accessory muscle use, + crackles (coarse b/l, reduced air entry on right side (previously noted, but had been improving and apears more prominent this morning)) Cardiovascular: regular rate, rhythm, no murmur Abdomen: normal bowel sounds, soft, + mass (right sided mass non tender) Extremities: no pedal edema, no calf tenderness, + slow capillary refill Neurologic/Psychiatric: alert (to voice) Skin: warm/dry, + cyanosis (appears pale, no jaundice), + pertinent finding ( 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) Laboratory Results 06/18/16 05:13 Red Blood Count 3.17, Mean Corpuscular Volume 88.3, Mean Corpuscular Hemoglobin 27.4, Mean Corpuscular Hemoglobin Concent 31.1, Mean Platelet Volume 8.6, Neutrophils (%) (Auto) 95.3, Lymphocytes (%) (Auto) 2.0, Monocytes (%) (Auto) 2.0, Eosinophils (%) (Auto) 0.0, Basophils (%) (Auto) 0.1, Neutrophils # (Auto) 18.54, Lymphocytes # (Auto) 0.39, Monocytes # (Auto) 0.39, Eosinophils # (Auto) 0.00, Basophils # (Auto) 0.01 06/18/16 05:13 Test 06/17/16 19:10 06/17/16 22:26 06/18/16 05:13 06/18/16 06:39 Estimated Average Glucose 126 mg/dl Hemoglobin A1c 6.0 % (4.5-5.6) Blood Gas Sample Site R Radial Bedside Blood Gas pH (LAB) 7.29 (7.35-7.45) Bedside Blood Gas pCO2 (LAB) 31 mmHg (35-46) Bedside Blood Gas pO2 (LAB) 74 mmHg (80-95) Bedside Blood Gas HCO3 (LAB) 15 meq/L (19-24) Bedside Blood Gas Total CO2 16 mEq/l (24-31) Bedside Blood Gas Base Excess (LAB) -12.0 meq/L (-9-1.8) Bedside Blood Gas O2 Saturation 94.0 % (90-95) Remy Test Pass Oxygen Delivery Device VentiMask Bedside FiO2 40 % White Blood Count 19.44 K/uL (4.8-10.8) Red Blood Count 3.17 M/uL (4.7-6.1) Hemoglobin 8.7 g/dL (14.0-18.0) Hematocrit 28.0 % (42-52) Mean Corpuscular Volume 88.3 fL (80-100) Mean Corpuscular Hemoglobin 27.4 pg (25-34) Mean Corpuscular Hemoglobin Concent 31.1 g/dl (32-36) Platelet Count 226 K/uL (130-400) Mean Platelet Volume 8.6 fL (7.4-10.4) Neutrophils (%) (Auto) 95.3 % Lymphocytes (%) (Auto) 2.0 % Monocytes (%) (Auto) 2.0 % Eosinophils (%) (Auto) 0.0 % Basophils (%) (Auto) 0.1 % Neutrophils # (Auto) 18.54 K/uL (1.4-6.5) Lymphocytes # (Auto) 0.39 K/uL (1.2-3.4) Monocytes # (Auto) 0.39 K/uL (0.11-0.59) Eosinophils # (Auto) 0.00 K/uL (0-0.5) Basophils # (Auto) 0.01 K/uL (0-0.2) RDW Standard Deviation 55.8 fL (36.4-46.3) RDW Coefficient of Variation 17.1 % (11.5-14.5) Immature Granulocyte % (Auto) 0.6 % Immature Granulocyte # (Auto) 0.11 K/uL (0.00-0.02) Echinocytes 1+ Anion Gap 10.0 mmol/L (3-11) Est Creatinine Clear Calc Drug Dose 56.9 ml/min Estimated GFR () 105.0 Estimated GFR (Non- 90.6 BUN/Creatinine Ratio 36.7 (10-20) Lactic Acid Level 1.2 mmol/L (0.4-2.0) Calcium Level 6.7 mg/dl (8.5-10.1) Phosphorus Level 2.3 mg/dl (2.5-4.9) Magnesium Level 2.0 mg/dl (1.8-2.4) Bedside Glucose 109 mg/dl (70-99) Assessment and Plan 76 year old male w/Hx advanced COPD, neurofibromatosis, BPH w/retention and chronic Vail present with chest pain and shortness of breath Goals of care - patient has extremely poor prognosis given severity of COPD, metabolic acidosis and sepsis with pneumonis - Palliative care referral regarding extremely poor prognosis and discuss goals of care with family and patient (if able, but currently does not have capacity) . Case management to discuss formal power of district attorney with his NOK as there are other family members but he has not been in contact with them for years. Acute hypoxic respiratory failure - Continue to maintain sats > 90%. Recent CT shows increasing pleural effusions therefore may consider lasix if saturations worsen Sepsis (source chest) - lactic acid improved - Continue IVF 100 MLS/HR - Continue azithromycin and Tazocin (MRSA negative) Metabolic acidosis with normal anion gap and renal function - UO good - unclear cause of this ?GI losses = the mass on CT. Continue to monitor. CT of mass appears stable Severely enlarged gallbladder on CT with possible free air suggestive of perforation serial CT showed no progression and my serial abdo examinations have been benign throughout his admission. Biliary ductal dilatation on MRI ( although much less severe) in 2015 present. Given previous pancreatic mass would favor an obstructive process although his LFTs do not suggest this it has likely occurred very slowly over time. I suspect this is not related to his currently illness and could consider NG tube feeding depending on what goals of care are selected. Aspiration pneumonia - bibasal consolidation on CT R>L. Antibiotics as above. COPD exacerbation - Methylpred 40 mg IV Q8H continue to wean - Duonebs Normocytic anemia - reduction probably dilutional, appears chronically anemic, will monitor Electrolyte imbalance - hypokalemia, hypomagnesemia, hypophosphatemia - replace as per ICU protocols Non acute History of pancreatic ampullary mass, status post endoscopic ultrasound and fine needle aspiration in 2015. Severe biliary ductal dilatation. Code - DNR/DNI - considering comfort care at present VTE/GI Prophylaxis - heparin 5000 units Q8H SQ - Pantoprazole 40 mg IV BID Disposition - can be transferred to med/surg if decided upon comfort care otherwise remain in ICU Resident Physician Supervision Note: I interviewed and examined the patient. Discussed with Dr. Srivastava and agree with findings and plan as documented in the note. Any exceptions or clarifications are listed here: None Documented By: Flynn Holman pt and family opted for comfort care. pt appearing comfortable vitals noted nad breathing now unlabored, resting comfortably pneumonia and abdominal pathology (presumed marked GB distention) - for comfort care Resident Tracking Resident Involvement: Resident Care Provided Care Provided: Adult Hospital Medicine
[2016-06-18] MEDS: POTASSIUM CHLR 10 MEQ / WTR 10 MEQ in PREMIXED WATER 100 ML IV SCH ×4 (08:53→11:00)
[2016-06-18] MEDS: PANTOprazole INJ 40 MG in SYRINGE 0 ML IV SCH (08:54)
--- NOTE | 2016-06-18 09:11 | SURGERY PROGRESS NOTE ---
DATE: 06/18/2016 DATE: 06/18/2016. I reviewed the most recent CAT scan with radiologist and reviewed the previous ones. It is consensus at this that maybe the patient did have free air. The right upper quadrant fluid collection versus biloma or perforated gallbladder versus hematoma. It seems to be enlarging. At this point, the patient seems to have a mild dilatation of the pancreatic duct, it is hard to visualize the extrahepatic ducts whether these would be dilated. Our plan is to repeat liver function tests, they were normal when he first came in and get a HIDA scan. Suspicion at this time is whether or not this may be all a [place]is[place] gallbladder versus localized perforation. I do not want to subject him to an ERCP at this time since his pulmonary function is extremely poor and given the need of general anesthesia makes this procedure extremely risky for him. Pending those results, we may consider placing a tube in the gallbladder first for diagnostic and even therapeutic purposes. If this turns out to be more of a localized perforated gallbladder versus [place] gallbladder. On a clinical basis the patient is not really deteriorated, therefore we will perform those tests today and more definitive diagnostic and therapeutic modalities may be instituted tomorrow. TORREYD
--- NOTE | 2016-06-18 09:49 | Critical Care Progress Note ---
Critical Care Progress Note Date of Service Jun 18, 2016. ICU Day ICU Day Number: [address] Vera Subjective Patient was transferred upstairs however because of acidosis and worsening respiratory status the patient was transferred back to ICU. He was also noted to have respiratory depression after receiving morphine in the ICU for dyspnea and required a dose of Naloxone. Patient has ongoing increased resp req however is not in distress Patient's stated POA is to be coming this afternoon around 1300 Denies any pain Unable to complete a full ROS because of limited responses from patient Objective General: laying in bed and not in acute distress, cachectic Skin: neurofibromas noted on skin CVS: S1/ S2 noted, RRR, no rubs/ murmurs noted, no cyanosis RVS: coarse breath sounds in the upper lobes, limited to bases, no respiratory distress ENT: inspection WNL Neck: inspection WNL, full ROM of neck ABD: BSx4, no pain/ tenderness on palpation, still firm but seems softer than yesterday MSK: no swelling/ pain on palpation of joints, thin limbs NVS: PERRL, ongoing nasally deviated right eye (BL), sensation intact in all extremities Lymph: No lymphadenopathy palpable Assessment & Plan 1. Sepsis secondary to aspiration PNA (bibasilar consolidation) leading to acute hypoxic respiratory failure 2. Bilateral pleural effusions secondary to fluid overload 3. Metabolic acidosis with attempted compensation via respiratory system 4. potential gallbladder distention secondary to a possible pancreatic head mass - poor surgical candidate 5. Recurrent UTI- history of treatment of Cipro/ Bactrim and Amoxil 6. Chronic vail for BPH/ retention 7. Yeast noted in UA 8. Severe COPD 10. Acute anemia without any clear signs of blood loss, possibly into the intraabdominal cavity/ mass? 11. history of left sided video- assisted thoracoscopic surgery and pleurodesis 12. History of pancreatic ampullary mass- FNA in 2014 13. H/O falls 14. Malnutrition/ hypomagnesemia/ hypophosphatemia NVS - currently alert however does only provide limited history - continue to reorient as needed and screen for delirium/ change in mental status - morphine has been d/c as did need naloxone for resp depression - occasionally anxious and needs reassurance CVS - continue to monitor on tele - 20 mg Lasix IV x 1 and reassess RVS - Venturi mask 35 FiO2 and adjust accordingly - ultimately goal is 88-93% considering history of emphysema however because of met acidosis a goal > 95% appropriate - did not tolerate the Bipap - Chest percussion - flutter valve - Sputum culture - There was mediastinal node calcifications indicating a granulomatous disease - pending - Methylpred transition to 40 mg q 8 - duoneb q6h GI - General surgery consult - appreciate input - not a good surgical candidate - mass may very well be a distended gallbladder, will not tolerate anesthesia for an ERCP - may consider needle aspiration tomorrow - CT abd no contrast- repeated this am - no free air noted - alk phos has improved - NPO, will hold off of speech therapy for now - as there will be a meeting this afternoon with POA will revisit nutrition after this meeting - Phosphorous - replete accordingly - protonix for GI prophylaxis - UA showed urine and culture pending- will start diflucan empirically - follow I&O especially since patient received so much fluid HEME - hgb decreased from 11 to 9 - follow HH qid however most likely secondary to the fluid resus - fecal occult and type and screen - trend cbc- leukocytosis cause by leukemoid reaction? - PICC for improved access ID - Zosyn day 4 and Azithro day 4 - will d/c azithro - MRSA neg- will hold vanco for now FEN - NSS @ 100cc/h - will hold - hypokalemia- trend and replete as needed - follow BMP ENDO - Insulin ISS with CF only DVT Prophylaxis - heparin held in case surgery will be done - SCD PT/OT Resident Physician Supervision Note/Shift Supervisor [employer] Attending I interviewed and examined the patient. Discussed with Dr. Bartlett and agree with findings and plan as documented in the note. Any exceptions or clarifications are listed here: The patient's care was discussed on multidisciplinary rounds today. I have reviewed the VS, I/O, notes, meds, labs, micro and imaging. I am also familiar with the events of yesterday evening. He denies abdominal pain but continues to complain of SOB. He was unable to tolerate bipap last night and has developed a metabolic acidosis which may be due to the intrabdominal process, the etiology of which is unclear. He cannot cough up his secretions and tells me he just wants to sleep. He thinks it's 1977 and can't tell me why he's in the hospital. He is using accessory muscles to breathe and lung sounds are diminished throughout. He remains on Zosyn and diflucan- Zmax d/c'd today. Urine culture being reincubated. Discussed with surgery regarding follow up CT this morning and they are planning on asking radiology to place a needle in the abdominal collection in the morning. Patient's friend, Tisha, arrived today and I updated her on the patient's status and recent events - particularly his aspiration PNA on top of severe COPD and malnutrition along with his poor candidacy for surgery and invasive procedures. I expressed my concern that he may worsen from a respiratory standpoint due to his acidosis which I think is probably coming from the abdomen. She seems to have his best interest at heart and they have been friends for over 40 years. She was helping to care for him before he was placed in a jail several years ago. She confirmed the DNR status (and discussed it with him several days ago) and is concerned that he doesn't suffer. We discussed thinking about goals of care and I introduced the idea of palliative care with her. She is willing to make decisions for Mr. Hernandez and I think she is an appropriate person to do so - 2 days ago he expressed to me that he wanted her to make decisions for him if he could not and she is listed as his next of kin although she is not related. Case management and palliative care were contacted. It would not be unreasonable to pursue a FNA of the intrabdominal collection, continue antibiotics and also focus on symptom management. I would not pursue TPN and could consider giving his some pleasure feeds if or once goals are clearly defined. For now, continue present management and await further discussions with Palliative Care and Case Management. Documented By: Marleni Vera Consults & Procedures Consultants: Dr Álvarez- Gen surg Procedures: NA Data Medications: Current Inpatient Medications Medications (Trade) Dose Ordered Sig/Anjum Route Start Time Stop Time Status Last Admin Dose Admin Acetaminophen (Tylenol Tab) 650 mg Q4H PRN PO 06/15/16 19:45 07/15/16 19:44 Albuterol/ Ipratropium 3 ml 3 ml Q6R INH 06/15/16 21:00 07/15/16 20:59 06/18/16 07:48 3 ML Piperacillin Sod/ Tazobactam Sod/ Dextrose (Zosyn Iv/D5 100ml) 115 ml @ 28.75 mls/ hr Q8H IV 06/16/16 00:00 06/23/16 00:00 06/18/16 08:53 28.75 MLS/HR Heparin Sodium (Porcine) (Heparin Sq 5000 Unit/0.5ml) 5,000 unit Q8 SQ 06/15/16 22:00 07/15/16 21:59 Future hold 06/16/16 06:11 5,000 UNIT Albuterol Sulfate (Ventolin 0.083% 2.5MG/3ML Neb) 2.5 mg Q4H PRN INH 06/15/16 21:15 07/15/16 21:14 Piperacillin Sod/ Tazobactam Sod (Consult) 1 ea UD PRN N/A 06/15/16 21:15 07/15/16 21:14 Insulin Aspart (novoLOG ASPART) SLIDING SCALE G... Q6 SC 06/16/16 01:45 07/16/16 01:44 06/16/16 02:27 3 UNITS Glucose (Glucose 40% Gel) 15-30 GRAMS 15 GRAMS... UD PRN PO 06/16/16 02:00 07/16/16 01:59 Glucose (Glucose Chew Tab) 4-8 Tablets 4 Tabl... UD PRN PO 06/16/16 02:00 07/16/16 01:59 Dextrose (Dextrose 50% 50ML Syringe) 25-50ML OF 50% DW IV FOR... UD PRN IV 06/16/16 02:00 07/16/16 01:59 Glucagon (Glucagon Inj) 1 mg UD PRN SQ 06/16/16 02:00 07/16/16 01:59 Heparin Sodium (Porcine) 5 ml 5 ml PRN PRN FLUSH 06/16/16 13:00 07/16/16 12:59 Pantoprazole Sodium 40 mg/ Syringe 10 ml @ 5 mls/min DAILY@,21 IV 06/16/16 21:00 07/16/16 20:59 06/18/16 08:54 5 MLS/MIN Methylprednisolone Sodium Succinate 40 mg/Syringe 0.64 ml @ 1.5 mls/min Q8 IV 06/17/16 14:00 07/17/16 13:59 06/18/16 06:00 1.5 MLS/MIN Fluconazole/ Sodium Chloride 200 mg/Prmx 100 ml @ 100 mls/hr DAILY@1000 IV 06/17/16 10:00 06/27/16 09:59 06/17/16 10:47 100 MLS/HR Potassium Chloride/Prmx (Kcl 10 Meq / Wtr/Premixed Water) 100 ml @ 100 mls/hr Q1H IV 06/18/16 08:00 06/18/16 11:59 06/18/16 08:53 100 MLS/HR I & O: 24-Hour Column 06/18/16 08:00 Intake Total 2188 ml Output Total 550 ml Balance 1638 ml Vital Signs: Date Time Temp Pulse Resp B/P Pulse Ox O2 Delivery O2 Flow Rate FiO2 06/18/16 07:48 86 16 97 Venturi Mask 9.0 35 06/18/16 06:13 85 17 116/65 98 Venturi Mask 10.0 35 06/18/16 04:00 36.0 83 16 88/57 96 Venturi Mask 10.0 35 06/18/16 04:00 97 Venturi Mask 10.0 35 06/18/16 02:00 96 92/60 97 Venturi Mask 10.0 35 06/18/16 01:55 87 14 100 Venturi Mask 12.0 40 06/18/16 00:01 36.5 86 98/62 99 BiPAP 12.0 40 Venturi Mask 06/18/16 00:00 99 BiPAP 12.0 40 Venturi Mask 06/17/16 22:54 88 98 40 06/17/16 21:01 91 8 84/49 99 06/17/16 20:04 12.0 06/17/16 20:02 104 22 92/60 97 06/17/16 20:00 99 Venturi Mask 40 06/17/16 20:00 36.3 98 23 92/56 99 Venturi Mask 10.0 40 06/17/16 19:19 76 14 96 Venturi Mask 12.0 40 06/17/16 18:07 36.1 93 22 101/64 96 Venturi Mask 15.0 45 06/17/16 16:00 36.2 101 22 117/67 93 Nasal Cannula 2.0 06/17/16 16:00 93 Nasal Cannula 2.0 06/17/16 14:24 82 14 96 Nasal Cannula 2.0 06/17/16 14:00 85 24 133/76 95 Nasal Cannula 2.0 06/17/16 12:00 94 Nasal Cannula 2.0 06/17/16 12:00 36.2 81 22 120/67 94 Nasal Cannula 2.0 06/17/16 10:00 75 20 99/60 96 Nasal Cannula 2.0 Laboratory Results: Last 24 Hours Test 06/17/16 11:45 06/17/16 12:05 06/17/16 16:06 06/17/16 17:06 Bedside Glucose 117 mg/dl Hemoglobin 8.9 g/dL Lactic Acid Level 0.9 mmol/L 1.1 mmol/L Blood Gas Sample Site R Brachial Bedside Blood Gas pH (LAB) 7.31 Bedside Blood Gas pCO2 (LAB) 28 mmHg Bedside Blood Gas pO2 (LAB) 78 mmHg Bedside Blood Gas HCO3 (LAB) 14 meq/L Bedside Blood Gas Total CO2 15 mEq/l Bedside Blood Gas Base Excess (LAB) -12.0 meq/L Bedside Blood Gas O2 Saturation 95.0 % Remy Test NA Oxygen Delivery Device VentiMask Bedside FiO2 40 % Test 06/17/16 17:33 06/17/16 19:10 06/17/16 22:26 06/17/16 22:55 Bedside Glucose 123 mg/dl Hemoglobin 9.2 g/dL 9.0 g/dL Hematocrit 29.4 % 28.0 % Sodium Level 142 mmol/L Potassium Level 3.8 mmol/L Chloride Level 112 mmol/L Carbon Dioxide Level 19 mmol/L Anion Gap 11.0 mmol/L Blood Urea Nitrogen 27 mg/dl Creatinine 0.67 mg/dl Est Creatinine Clear Calc Drug Dose 61.2 ml/min Estimated GFR () 108.2 Estimated GFR (Non- 93.3 BUN/Creatinine Ratio 41.0 Random Glucose 109 mg/dl Estimated Average Glucose 126 mg/dl Hemoglobin A1c 6.0 % Lactic Acid Level 1.1 mmol/L 1.1 mmol/L Calcium Level 6.7 mg/dl Blood Gas Sample Site R Radial Bedside Blood Gas pH (LAB) 7.29 Bedside Blood Gas pCO2 (LAB) 31 mmHg Bedside Blood Gas pO2 (LAB) 74 mmHg Bedside Blood Gas HCO3 (LAB) 15 meq/L Bedside Blood Gas Total CO2 16 mEq/l Bedside Blood Gas Base Excess (LAB) -12.0 meq/L Bedside Blood Gas O2 Saturation 94.0 % Remy Test Pass Oxygen Delivery Device VentiMask Bedside FiO2 40 % Test 06/17/16 23:45 06/18/16 05:13 06/18/16 06:39 Bedside Glucose 147 mg/dl 109 mg/dl White Blood Count 19.44 K/uL Red Blood Count 3.17 M/uL Hemoglobin 8.7 g/dL Hematocrit 28.0 % Mean Corpuscular Volume 88.3 fL Mean Corpuscular Hemoglobin 27.4 pg Mean Corpuscular Hemoglobin Concent 31.1 g/dl Platelet Count 226 K/uL Mean Platelet Volume 8.6 fL Neutrophils (%) (Auto) 95.3 % Lymphocytes (%) (Auto) 2.0 % Monocytes (%) (Auto) 2.0 % Eosinophils (%) (Auto) 0.0 % Basophils (%) (Auto) 0.1 % Neutrophils # (Auto) 18.54 K/uL Lymphocytes # (Auto) 0.39 K/uL Monocytes # (Auto) 0.39 K/uL Eosinophils # (Auto) 0.00 K/uL Basophils # (Auto) 0.01 K/uL RDW Standard Deviation 55.8 fL RDW Coefficient of Variation 17.1 % Immature Granulocyte % (Auto) 0.6 % Immature Granulocyte # (Auto) 0.11 K/uL Echinocytes 1+ Sodium Level 140 mmol/L Potassium Level 3.7 mmol/L Chloride Level 110 mmol/L Carbon Dioxide Level 20 mmol/L Anion Gap 10.0 mmol/L Blood Urea Nitrogen 26 mg/dl Creatinine 0.72 mg/dl Est Creatinine Clear Calc Drug Dose 56.9 ml/min Estimated GFR () 105.0 Estimated GFR (Non- 90.6 BUN/Creatinine Ratio 36.7 Random Glucose 120 mg/dl Lactic Acid Level 1.2 mmol/L Calcium Level 6.7 mg/dl Phosphorus Level 2.3 mg/dl Magnesium Level 2.0 mg/dl
[2016-06-18] MEDS: FLUCONAZOLE / NSS 200 MG in PREMIXED NSS 100 ML IV SCH (11:11)
[2016-06-18 12:30] LABS: HEMATOCRIT 29.1 % (42-52)
--- NOTE | 2016-06-18 13:30 | Palliative Care Consultation ---
Consultation Date of Consultation: Jun 18, 2016. Requesting Physician: Dr. Srivastava Attending Physician: Dr. Srivastava, Dr. Holman Reason for Consultation: Goals of care History of Present Illness This 76 year old male patient presented to the ED a few days ago from [facility] with c/o increased shortness of breath and lethargy. Patient was hypoxic, tachycardic and lethargic. Hypotensive- responded to fluids. Placed on bipap and sent to ICU. CXR looked like RLL pneumonia- ?aspiration, started on antibiotics. US of abdomen showed dilated biliary ductal system, CT showed intraabdominal fluid collection- surgery consulted and deemed patient a poor surgical candidate. Patient was not tolerating bipap well, so he was switched to a venti mask. 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 He has resided at [facility] for a while now and has had a steady decline in functional status/overall condition. He has no family, just a very close friend/POA, Tisha Zurita. There was discussion of possible fine needle aspiration of the abdominal fluid collection, and question of whether or not patient would want to continue with aggressive treatment in the condition he is in. Palliative care consulted to assist with establishing goals of care. I met first with the patient in room 109. Patient is chronically ill appearing, cachectic and short of breath at rest on venti mask. He woke easily to verbal stimuli, able to answer questions appropriately but is disoriented to time and date. He said he just wants to be comfort. I explained what that meant: stopping medications unrelated to comfort, no invasive procedures and allowing natural . He nodded his head "yes." I asked permission to talk to Tisha, his POA, and he gave permission for her to make decisions for him. I met with Tisha and discussed patient's condition. She stated that she knows the patient would not want to undergo any further invasive procedures and that he would jut want to be made comfortable. We looked over and discussed his living will which states that in an end-stage medical condition, he would want to allow natural . Tisha stated she would like the patient to be comfort measures only. See plan below. Past Medical/Surgical History Medical History: COPD, severe Neurofibromatosis BPH Urinary retention, chronic Vail catheter Social History Smoking Status: Former Smoker History of Alcohol Use: No Drug Use: none Marital Status: single Housing Status: lives alone Occupation Status: retired Review of Systems Respiratory: + dyspnea at rest, + shortness of breath, No cough Cardiac: No chest pain Abdomen: No nausea, No pain, No vomiting Allergies Coded Allergies: No Known Allergies (Verified , 06/15/16) Medications Current Inpatient Medications Medications (Trade) Dose Ordered Sig/Anjum Route Start Time Stop Time Status Last Admin Dose Admin Acetaminophen (Tylenol Tab) 650 mg Q4H PRN PO 06/15/16 19:45 07/15/16 19:44 Albuterol/ Ipratropium 3 ml 3 ml Q6R INH 06/15/16 21:00 07/15/16 20:59 06/18/16 07:48 3 ML Piperacillin Sod/ Tazobactam Sod/ Dextrose (Zosyn Iv/D5 100ml) 115 ml @ 28.75 mls/ hr Q8H IV 06/16/16 00:00 06/23/16 00:00 06/18/16 08:53 28.75 MLS/HR Heparin Sodium (Porcine) (Heparin Sq 5000 Unit/0.5ml) 5,000 unit Q8 SQ 06/15/16 22:00 07/15/16 21:59 Future hold 06/16/16 06:11 5,000 UNIT Albuterol Sulfate (Ventolin 0.083% 2.5MG/3ML Neb) 2.5 mg Q4H PRN INH 06/15/16 21:15 07/15/16 21:14 Piperacillin Sod/ Tazobactam Sod (Consult) 1 ea UD PRN N/A 06/15/16 21:15 07/15/16 21:14 Insulin Aspart (novoLOG ASPART) SLIDING SCALE G... Q6 SC 06/16/16 01:45 07/16/16 01:44 06/16/16 02:27 3 UNITS Glucose (Glucose 40% Gel) 15-30 GRAMS 15 GRAMS... UD PRN PO 06/16/16 02:00 07/16/16 01:59 Glucose (Glucose Chew Tab) 4-8 Tablets 4 Tabl... UD PRN PO 06/16/16 02:00 07/16/16 01:59 Dextrose (Dextrose 50% 50ML Syringe) 25-50ML OF 50% DW IV FOR... UD PRN IV 06/16/16 02:00 07/16/16 01:59 Glucagon (Glucagon Inj) 1 mg UD PRN SQ 06/16/16 02:00 07/16/16 01:59 Heparin Sodium (Porcine) 5 ml 5 ml PRN PRN FLUSH 06/16/16 13:00 07/16/16 12:59 Pantoprazole Sodium 40 mg/ Syringe 10 ml @ 5 mls/min DAILY@09,21 IV 06/16/16 21:00 07/16/16 20:59 06/18/16 08:54 5 MLS/MIN Methylprednisolone Sodium Succinate 40 mg/Syringe 0.64 ml @ 1.5 mls/min Q8 IV 06/17/16 14:00 07/17/16 13:59 06/18/16 06:00 1.5 MLS/MIN Fluconazole/ Sodium Chloride/ Prmx (Diflucan IV/ Premixed Nss) 100 ml @ 100 mls/hr DAILY@1000 IV 06/17/16 10:00 06/27/16 09:59 06/18/16 11:11 100 MLS/HR Physical Exam Date Time Temp Pulse Resp B/P Pulse Ox O2 Delivery O2 Flow Rate FiO2 06/18/16 11:30 36.7 88 20 141/63 96 Venturi Mask 10.0 35 06/18/16 11:30 Venturi Mask 10.0 06/18/16 07:48 86 16 97 Venturi Mask 9.0 35 06/18/16 07:30 36.4 85 17 121/48 98 Venturi Mask 10.0 35 06/18/16 07:30 Venturi Mask 10.0 06/18/16 06:13 85 17 116/65 98 Venturi Mask 10.0 35 06/18/16 04:00 36.0 83 16 88/57 96 Venturi Mask 10.0 35 06/18/16 04:00 97 Venturi Mask 10.0 35 06/18/16 02:00 96 92/60 97 Venturi Mask 10.0 35 06/18/16 01:55 87 14 100 Venturi Mask 12.0 40 06/18/16 00:01 36.5 86 98/62 99 BiPAP 12.0 40 Venturi Mask 06/18/16 00:00 99 BiPAP 12.0 40 Venturi Mask 06/17/16 22:54 88 98 40 06/17/16 21:01 91 8 84/49 99 06/17/16 20:04 12.0 06/17/16 20:02 104 22 92/60 97 06/17/16 20:00 99 Venturi Mask 40 06/17/16 20:00 36.3 98 23 92/56 99 Venturi Mask 10.0 40 06/17/16 19:19 76 14 96 Venturi Mask 12.0 40 06/17/16 18:07 36.1 93 22 101/64 96 Venturi Mask 15.0 45 06/17/16 16:00 36.2 101 22 117/67 93 Nasal Cannula 2.0 06/17/16 16:00 93 Nasal Cannula 2.0 06/17/16 14:24 82 14 96 Nasal Cannula 2.0 06/17/16 14:00 85 24 133/76 95 Nasal Cannula 2.0 General Appearance: + cachetic, + thin Neck: supple, no JVD Respiratory: + decreased breath sounds, + accessory muscle use, + rhonchi ( some coarse rhonchi), + pertinent finding (short of breath at rest) Cardiovascular: regular rate, rhythm, + normal peripheral pulses Abdomen: normal bowel sounds, non tender, soft Neurologic/Psychiatric: alert, + disoriented Laboratory Results Last 24 Hours Test 06/17/16 16:06 06/17/16 17:06 06/17/16 17:33 06/17/16 19:10 Lactic Acid Level 1.1 mmol/L 1.1 mmol/L Blood Gas Sample Site R Brachial Bedside Blood Gas pH (LAB) 7.31 Bedside Blood Gas pCO2 (LAB) 28 mmHg Bedside Blood Gas pO2 (LAB) 78 mmHg Bedside Blood Gas HCO3 (LAB) 14 meq/L Bedside Blood Gas Total CO2 15 mEq/l Bedside Blood Gas Base Excess (LAB) -12.0 meq/L Bedside Blood Gas O2 Saturation 95.0 % Remy Test NA Oxygen Delivery Device VentiMask Bedside FiO2 40 % Bedside Glucose 123 mg/dl Hemoglobin 9.2 g/dL Hematocrit 29.4 % Sodium Level 142 mmol/L Potassium Level 3.8 mmol/L Chloride Level 112 mmol/L Carbon Dioxide Level 19 mmol/L Anion Gap 11.0 mmol/L Blood Urea Nitrogen 27 mg/dl Creatinine 0.67 mg/dl Est Creatinine Clear Calc Drug Dose 61.2 ml/min Estimated GFR () 108.2 Estimated GFR (Non- 93.3 BUN/Creatinine Ratio 41.0 Random Glucose 109 mg/dl Estimated Average Glucose 126 mg/dl Hemoglobin A1c 6.0 % Calcium Level 6.7 mg/dl Test 06/17/16 22:26 06/17/16 22:55 06/17/16 23:45 06/18/16 05:13 Blood Gas Sample Site R Radial Bedside Blood Gas pH (LAB) 7.29 Bedside Blood Gas pCO2 (LAB) 31 mmHg Bedside Blood Gas pO2 (LAB) 74 mmHg Bedside Blood Gas HCO3 (LAB) 15 meq/L Bedside Blood Gas Total CO2 16 mEq/l Bedside Blood Gas Base Excess (LAB) -12.0 meq/L Bedside Blood Gas O2 Saturation 94.0 % Remy Test Pass Oxygen Delivery Device VentiMask Bedside FiO2 40 % Hemoglobin 9.0 g/dL 8.7 g/dL Hematocrit 28.0 % 28.0 % Lactic Acid Level 1.1 mmol/L 1.2 mmol/L Bedside Glucose 147 mg/dl White Blood Count 19.44 K/uL Red Blood Count 3.17 M/uL Mean Corpuscular Volume 88.3 fL Mean Corpuscular Hemoglobin 27.4 pg Mean Corpuscular Hemoglobin Concent 31.1 g/dl Platelet Count 226 K/uL Mean Platelet Volume 8.6 fL Neutrophils (%) (Auto) 95.3 % Lymphocytes (%) (Auto) 2.0 % Monocytes (%) (Auto) 2.0 % Eosinophils (%) (Auto) 0.0 % Basophils (%) (Auto) 0.1 % Neutrophils # (Auto) 18.54 K/uL Lymphocytes # (Auto) 0.39 K/uL Monocytes # (Auto) 0.39 K/uL Eosinophils # (Auto) 0.00 K/uL Basophils # (Auto) 0.01 K/uL RDW Standard Deviation 55.8 fL RDW Coefficient of Variation 17.1 % Immature Granulocyte % (Auto) 0.6 % Immature Granulocyte # (Auto) 0.11 K/uL Echinocytes 1+ Sodium Level 140 mmol/L Potassium Level 3.7 mmol/L Chloride Level 110 mmol/L Carbon Dioxide Level 20 mmol/L Anion Gap 10.0 mmol/L Blood Urea Nitrogen 26 mg/dl Creatinine 0.72 mg/dl Est Creatinine Clear Calc Drug Dose 56.9 ml/min Estimated GFR () 105.0 Estimated GFR (Non- 90.6 BUN/Creatinine Ratio 36.7 Random Glucose 120 mg/dl Calcium Level 6.7 mg/dl Phosphorus Level 2.3 mg/dl Magnesium Level 2.0 mg/dl Total Bilirubin 0.3 mg/dl Direct Bilirubin 0.2 mg/dl Aspartate Amino Transf (AST/SGOT) 14 U/L Alanine Aminotransferase (ALT/SGPT) 9 U/L Alkaline Phosphatase 120 U/L Total Protein 5.3 gm/dl Albumin 2.5 gm/dl Test 06/18/16 06:39 06/18/16 11:13 06/18/16 12:10 Bedside Glucose 109 mg/dl 105 mg/dl Hemoglobin 9.3 g/dL Hematocrit 29.1 % Assessment & Plan Palliative Performance Scale: 10 % Problem list: Sepsis secondary to aspiration PNA (bibasilar consolidation) leading to acute hypoxic respiratory failure Bilateral pleural effusions secondary to fluid overload Metabolic acidosis Gallbladder distention secondary to a possible pancreatic head mass- poor surgical candidate UTI Chronic vail for BPH/ retention Yeast noted in UA Severe COPD Acute anemia History of left sided VATS and pleurodesis 04/2014 History of pancreatic mass- FNA in 2014 noted to be benign H/O falls Malnutrition Electrolyte imbalances Goals of care (Z51.5) Palliative care plan: discussed with patient's POA Tisha Zurita, Dr. Vera, Dr. Bartlett, Dr. Srivastava. Attempted to speak with patient about it somewhat. -DNR/DNI per patient's wishes. -Living will/Durable healthcare POA found which states in an end-stage medical condition, the patient would not want any aggressive or life-sustaining treatment. He would not want a feeding tube. -At this point, based on the patient's advancing illness and his wish to be made comfortable, Tisha (POA) has made the decision to make the patient comfort measures only which includes no artificial feeding, discontinuing IVF and antibiotics, no FNA. Continue only comfort medications. -Discussed with Tisha that if patient was stabilized and could possible transfer, he could go to [facility] with hospice. However, we will see how the patient does-- not sure at this point if he would tolerate transfer. Thank you kindly for this consult. I will follow as needed.
[2016-06-18] MEDS: HEPARIN SOD 5000 UNIT/0.5 ML CARP SQ SCH (14:00)
--- NOTE | 2016-06-18 16:31 | DIAGNOSTIC IMAGING REPORT ---
NUCLEAR MEDICINE HEPATOBILIARY SCAN HISTORY: gall bladder vs perforation COMPARISON: None. TECHNIQUE: Immediately following the intravenous administration of 5.3 mCi Tc-99m Choletec, dynamic anterior abdominal imaging was performed. FINDINGS: Heterogeneous hepatic activity. No well-defined activity within the small bowel or biliary ductal system. Clinical early activity within the gallbladder itself. No evidence of contrast extravasation. No evidence for perforation. IMPRESSION: Limited study demonstrating heterogeneous activity within the liver consistent with hepatic dysfunction. Possible partial opacification of the gallbladder. No evidence for isotope extravasation. Patient declined additional imaging. This study does not provide any significant additional information. Electronically signed by: Lorenzo Covington M.D. 06/18/2016 4:29 PM Dictated Date/Time: 06/18/2016 4:26 PM
--- NOTE | 2016-06-18 17:17 | SURGERY PROGRESS NOTE ---
DATE: 06/18/2016 I reviewed the preliminary films of the HIDA scan with Dr. Holder and it basically shows no real evidence of any extravasation. There may be some common bile duct activity but pretty much inconclusive at this time. Delayed films was called by the nurse in ICU that the patient and the person with power of insurance attorney have requested that just go to about comfort measure status only. I did talk with Pancho about this and the patient states he does not want any surgery, which I explained to him, we will try to ovoid as we have been at all time, but if he wishes to be comfort measure only that would be his decision. Apparently, by the nurses' conversation, Dr. Vera had initiated other consult given the fact that the patient and the power of insurance attorney wanted comfort measures only. No delayed films will be obtained.
[2016-06-18] MEDS ORDERED: MoRPHine SULFATE 2 MG/ML CARP IV PRN (17:45)
--- NOTE | 2016-06-18 17:50 | Progress Note ---
Progress Note Date of Service Jun 18, 2016. Progress Note Discussed patient with patient, Rhiannon Willis from palliative care, Dr Álvarez and DEVIN Giles who has POA. The patient defers his decision making to his POA. When I discussed comfort care measures with the patient he is in agreement with this and understands that tretment will be geared towards his symptoms rather than disease and this is likely to lead to his . Please refer to Asia's note regarding palliative care discussion. I called Tisha to confirm their conversation and discussed options for treatment. The aim is for comfort measures and the patient is not for BiPAP but is having supplemental oxygen to reduce any respiratory distress. DNR/DNI. Will continue antibiotics and steroids just during the day time (he has been having trouble sleeping. Use morphine for respiratory distress (lower doses than last night). Ativan for agitation or anxiety, atropine for secretions. No further lab draws. Will be transferred to med/surg. No further investigations. Resident Tracking Resident Involvement: Resident Care Provided Care Provided: Adult Hospital Medicine
[2016-06-18] MEDS ORDERED: MoRPHine SULFATE 2 MG/ML CARP ONE (18:04)
[2016-06-18] MEDS ORDERED: ONDANSETRON INJ 2 MG/ML 2 ML VIAL IV PRN (20:15)
[2016-06-18] MEDS ORDERED: LORAZEPAM 2 MG/ML 1 ML VIAL IV PRN ×2 (20:15)
[2016-06-18] MEDS ORDERED: HYDROmorphone INJ 1 MG/ML SYR IV PRN (20:15)
[2016-06-18] MEDS ORDERED: HYDROmorphone INJ 0.5 MG/0.5 ML SYR IV PRN (20:15)
[2016-06-18] MEDS ORDERED: HYDROmorphone INJ 2 MG/ML SYR/VIAL IV PRN (20:15)
[2016-06-18] MEDS ORDERED: DiphenhydrAMINE HCL 50 MG/ML VIAL IV PRN (20:15)
[2016-06-18] MEDS ORDERED: SCOPOLAMINE 1.5 MG TDSY TD SCH (20:15)
[2016-06-19] MEDS ORDERED: CHECK SCOPOLAMINE PATCH PLACEMENT SCH ×2
[2016-06-19] MEDS ORDERED: NURSING DECISION MEDICATION ORDER SCH (00:15)
[2016-06-19] MEDS: ALBUT/IPRATROP 3MG/0.5MG NEB 3 ML VIAL INH SCH ×2 (02:08→07:26)
--- NOTE | 2016-06-19 07:19 | SURGERY PROGRESS NOTE ---
DATE: 06/19/2016 Pancho is barely arousable this morning. He appears to be in no respiratory distress. On abdominal exam, his belly is completely benign, does not respond to any pain stimulus. His last vitals showed a temperature of 35.8, pulse 110, respiration 26, blood pressure 119/78, O2 sats 94 on 12 liters. At this point, as we had discussed with Dr. Vera, the patient did not want any surgery, and given his overall picture and comfort measure status, I think we will just abort any other invasive procedure as you can try to tap this fluid out of his abdomen. My intent was to try to see if we could decompress him and maybe get a contrast study to look at the common bile duct to see if there is any true obstruction or distal lesions, but given this situation, I think the best thing is to let nature take its course and not submit him to any other forms of therapy. Pancho's wish yesterday was he would not want any surgery at all and we will respect that.
[2016-06-19] MEDS ORDERED: PANTOprazole INJ 40 MG in SYRINGE 0 ML IV SCH (08:00)
[2016-06-19] MEDS ORDERED: METHYLPREDNISOLONE IV 40 MG in SYRINGE 0 ML IV SCH (08:00)
--- NOTE | 2016-06-19 08:16 | Family Medicine Progress Note ---
Progress Note Date of Service Jun 19, 2016. Subjective Voiding: vail catheter in place Patient appears only responsive to pain this morning. Very shallow breathing with slow respiratory rate. Additional Comments: unable to obtain due to patient unresponsiveness Medications Current Inpatient Medications Medications (Trade) Dose Ordered Sig/Anjum Route Start Time Stop Time Status Last Admin Dose Admin Albuterol/ Ipratropium 3 ml 3 ml Q6R INH 06/15/16 21:00 07/15/16 20:59 06/18/16 19:35 3 ML Piperacillin Sod/ Tazobactam Sod/ Dextrose (Zosyn Iv/D5 100ml) 115 ml @ 28.75 mls/ hr Q8H IV 06/16/16 00:00 06/23/16 00:00 06/18/16 23:56 28.75 MLS/HR Albuterol Sulfate (Ventolin 0.083% 2.5MG/3ML Neb) 2.5 mg Q4H PRN INH 06/15/16 21:15 07/15/16 21:14 Piperacillin Sod/ Tazobactam Sod 1 ea 1 ea UD PRN N/A 06/15/16 21:15 07/15/16 21:14 Methylprednisolone Sodium Succinate 40 mg/Syringe 0.64 ml @ 1.5 mls/min DAILY IV 06/19/16 08:00 07/19/16 08:59 Pantoprazole Sodium/Syringe (Protonix Inj/ Syringe) 10 ml @ 5 mls/min DAILY IV 06/19/16 08:00 07/19/16 08:59 Morphine Sulfate (MoRPHine SULFATE INJ) 1 mg Q2H PRN IV 06/18/16 17:45 07/02/16 17:44 Hydromorphone HCl (Dilaudid Inj) 0.5 mg Q2H PRN IV 06/18/16 20:15 07/02/16 20:14 Hydromorphone HCl (Dilaudid Inj) 1 mg Q2H PRN IV 06/18/16 20:15 07/02/16 20:14 06/18/16 23:58 1 MG Lorazepam (Ativan Inj) 0.5 mg Q4H PRN IV 06/18/16 20:15 07/18/16 20:14 Lorazepam (Ativan Inj) 1 mg Q4H PRN IV 06/18/16 20:15 07/18/16 20:14 06/18/16 20:49 1 MG Diphenhydramine HCl (Benadryl Inj) 50 mg Q4H PRN IV 06/18/16 20:15 07/18/16 20:14 Ondansetron HCl (Zofran Inj) 4 mg Q4H PRN IV 06/18/16 20:15 07/18/16 20:14 Heparin Sodium (Porcine) (Heparin 10 Unit/ ml 5 ml Flush) 5 ml PRN PRN FLUSH 06/19/16 00:30 07/19/16 00:29 Objective Vital Signs Date Time Temp Pulse Resp B/P Pulse Ox O2 Delivery O2 Flow Rate FiO2 06/18/16 20:00 35.8 110 26 119/78 94 Venturi Mask 12.0 06/18/16 20:00 94 Venturi Mask 12.0 40 06/18/16 19:35 89 18 95 Venturi Mask 12.0 40 06/18/16 17:48 36.7 111 20 92 10.0 06/18/16 17:02 101 20 110/72 96 06/18/16 17:00 94 17 96 06/18/16 16:02 103 22 114/85 94 06/18/16 16:00 103 21 94 06/18/16 15:57 118 25 127/124 91 06/18/16 15:40 Venturi Mask 10.0 06/18/16 14:02 111 20 132/93 92 06/18/16 14:02 111 20 132/93 92 06/18/16 14:00 110 22 97 06/18/16 14:00 110 22 97 06/18/16 13:52 101 16 95 Venturi Mask 9.0 35 06/18/16 13:30 36.7 88 20 132/93 94 Venturi Mask 10.0 35 06/18/16 13:02 84 18 99/67 98 06/18/16 13:00 82 14 97 06/18/16 12:03 114 21 126/102 92 06/18/16 12:00 82 14 96 06/18/16 11:30 36.7 88 20 141/63 96 Venturi Mask 10.0 35 06/18/16 11:30 Venturi Mask 10.0 06/18/16 11:03 107 26 107/82 93 06/18/16 11:00 116 22 93 06/18/16 10:02 89 13 104/68 95 06/18/16 10:00 89 14 95 06/18/16 09:03 284 17 101/73 88 06/18/16 09:00 108 23 94 Physical Exam General Appearance: no apparent distress, + cachetic Respiratory/Chest: no respiratory distress, + accessory muscle use (slow breathing), + rhonchi (throughout, no gurgling) Cardiovascular: regular rate, rhythm Laboratory Results 06/18/16 12:10 Test 06/18/16 11:13 Bedside Glucose 105 mg/dl (70-99) Assessment and Plan 76 yo male with severe emphysema and neurofibromatosis admitted for pneumonia with sepsis. Patient elected for comfort measures with shared decision making with his NOK (friend) Tisha who has POA. Continue comfort care measures but will reduce dosing of opiates given low RR this morning and much less responsive than yesterday afternoon. If he wakes more an develops respiratory distress despite lower doses we will have to re- examine this. No upper airway secretions so take of scopolamine patch and use glycopyrrolate PRN. Will also take off the higher dose of lorazepam to also avoid excessive sedation. In order to keep him comfortable and since he has good IV access I think i is reasonable to continue his antibiotics, IV steroid, and pantoprazole. Will consider stopping these later if he does regain more consciousness after the dilaudid wears off a bit, Remains comfort care not for BiPAP, no intubation and DNR. Resident Physician Supervision Note: I interviewed and examined the patient. Discussed with Dr. Srivastava and agree with findings and plan as documented in the note. Any exceptions or clarifications are listed here: None Documented By: Flynn Holman pt seen in rounds w dr srivastava - comfortable no problems resting peacefully. revisited when family present - extensive discussion answered all questions showed them CT, HIDA. discussed comfort measures and overall plan of care. all questions answered to the best of my ability a/p pneumonia, abdominal pathology (biliary vs perforation) -comfort care -appearing comfortable -family pleased with care Resident Tracking Resident Involvement: Resident Care Provided Care Provided: Adult Hospital Medicine
[2016-06-19] MEDS: PIPERACILL/TAZOBAC IV 3.375 GM in DEXTROSE 5% 100ML 100 ML IV SCH ×2 (09:36→17:14)
--- NOTE | 2016-06-19 13:37 | Palliative Care Progress Note ---
Palliative Care Progress Note Date of Service Jun 19, 2016. Subjective Pt evaluation today including: conversation w/ patient, physical exam, chart review, conversation w/ [facility] consultant, review of inpatient medication list Pain: unable to respond PO Intake: none Voiding: vail catheter in place -Patient more lethargic today, still on venti mask. -Opened eyes to tactile stimuli but unable to answer any questions. -Still on Zosyn and pantoprazole. -Comfort measures Review of Systems unable to obtain Objective Vital Signs Date Time Temp Pulse Resp B/P Pulse Ox O2 Delivery O2 Flow Rate FiO2 06/19/16 07:30 Venturi Mask 06/18/16 20:00 35.8 110 26 119/78 94 Venturi Mask 12.0 06/18/16 20:00 94 Venturi Mask 12.0 40 06/18/16 19:35 89 18 95 Venturi Mask 12.0 40 06/18/16 17:48 36.7 111 20 92 10.0 06/18/16 17:02 101 20 110/72 96 06/18/16 17:00 94 17 96 06/18/16 16:02 103 22 114/85 94 06/18/16 16:00 103 21 94 06/18/16 15:57 118 25 127/124 91 06/18/16 15:40 Venturi Mask 10.0 06/18/16 14:02 111 20 132/93 92 06/18/16 14:02 111 20 132/93 92 06/18/16 14:00 110 22 97 06/18/16 14:00 110 22 97 06/18/16 13:52 101 16 95 Venturi Mask 9.0 35 Physical Exam General Appearance: no apparent distress, + cachetic, + thin Neck: supple, no JVD Respiratory/Chest: no respiratory distress, + decreased breath sounds, + pertinent finding (venti mask) Cardiovascular: regular rate, rhythm, no edema Abdomen: normal bowel sounds, non tender, soft Neurologic/Psychiatric: + pertinent finding (lethargic) Assessment and Plan Problem list: Sepsis secondary to aspiration PNA (bibasilar consolidation) leading to acute hypoxic respiratory failure Bilateral pleural effusions secondary to fluid overload Metabolic acidosis Gallbladder distention secondary to a possible pancreatic head mass- poor surgical candidate UTI Chronic vail for BPH/ retention Yeast noted in UA Severe COPD Acute anemia History of left sided VATS and pleurodesis 04/2014 History of pancreatic mass- FNA in 2014 noted to be benign H/O falls Malnutrition Electrolyte imbalances Goals of care (Z51.5) Palliative care plan: -I would discontinue antibiotics, pantoprazole and methylprednisolone at this point. Patient is lethargic/obtunded, hasn't been eating or drinking since admission. Is in active dying process. -Comfort measures only since yesterday. -Please add scopolamine patch 1.5mg TD Q72h. -Continue IV morphine as needed. Please contact me if there are any further palliative needs. Palliative Performance Scale: 10 % Continued [facility] stay due to: multiple IV medications needed, home environment unsafe for pt
[2016-06-19 15:08] VITALS: BP 125/78; PULSE 77; TEMP 36.3; O2SAT 100
[2016-06-19 16:10] VITALS: O2SAT 100
[2016-06-19] MEDS ORDERED: LORAZEPAM INJ 0.5 MG in SYRINGE 0.75 ML IV PRN ×2 (17:30→22:00)
[2016-06-19] MEDS: GLYCOPYRROLATE INJ 0.2 MG/ML VIAL IV PRN (19:08)
[2016-06-19] MEDS: SCOPOLAMINE 1.5 MG TDSY TD SCH (21:36)
[2016-06-19] MEDS ORDERED: MoRPHine SULFATE 2 MG/ML CARP IV PRN (21:45)
[2016-06-19] MEDS: MoRPHine SULFATE 2 MG/ML CARP IV PRN (22:42)
[2016-06-19] MEDS: CHECK SCOPOLAMINE PATCH PLACEMENT SCH (23:55)
[2016-06-20] MEDS: MoRPHine SULFATE 2 MG/ML CARP IV PRN ×3 (07:41→17:11)
[2016-06-20] MEDS: CHECK SCOPOLAMINE PATCH PLACEMENT SCH ×2 (07:42→15:02)
--- NOTE | 2016-06-20 13:03 | Family Medicine Progress Note ---
Progress Note Date of Service Jun 20, 2016. Subjective Pt evaluation today including: conversation w/ patient, physical exam, chart review, lab review, review of studies, review of inpatient medication list Patient is on comfort measures. Looking comfortable when I saw him this morning. Not responsive. Cool peripheries. All Other Systems: Reviewed and Negative Medications Current Inpatient Medications Medications (Trade) Dose Ordered Sig/Anjum Route Start Time Stop Time Status Last Admin Dose Admin Ondansetron HCl (Zofran Inj) 4 mg Q4H PRN IV 06/18/16 20:15 07/18/16 20:14 Heparin Sodium (Porcine) (Heparin 10 Unit/ ml 5 ml Flush) 5 ml PRN PRN FLUSH 06/19/16 00:30 07/19/16 00:29 06/20/16 11:54 5 ML Glycopyrrolate (Robinul Inj) 0.2 mg Q4H PRN IV 06/19/16 08:15 07/19/16 08:14 06/19/16 19:08 0.2 MG Lorazepam (Ativan Inj) 1 mg Q2H PRN IV 06/19/16 21:15 07/19/16 21:14 Morphine Sulfate 2 mg 2 mg Q2H PRN IV 06/19/16 21:15 07/03/16 21:14 06/20/16 11:54 2 MG Lorazepam/Syringe (Ativan Inj/ Syringe) 1 ml @ 1 mls/min Q1H PRN IV 06/19/16 22:00 07/19/16 21:59 06/19/16 21:36 1 MLS/MIN Scopolamine (Transderm-Scop Patch) 1.5 mg Q72H TD 06/19/16 21:15 07/19/16 21:14 06/19/16 21:36 1.5 MG Miscellaneous (Remove Transderm-Scop Patch) 1 ea Q72H N/A 06/22/16 21:15 07/22/16 21:14 Miscellaneous Information (Check Scopolamine Patch Placement) 1 ea QS N/A 06/20/16 00:00 07/20/16 00:00 06/20/16 07:42 1 EA Morphine Sulfate (MoRPHine SULFATE INJ) 1 mg Q1H PRN IV 06/19/16 21:45 07/03/16 21:44 Objective Vital Signs Date Time Temp Pulse Resp B/P Pulse Ox O2 Delivery O2 Flow Rate FiO2 06/20/16 08:00 Venturi Mask 12.0 40 06/20/16 00:00 Venturi Mask 12.0 40 06/19/16 16:10 100 Venturi Mask 12.0 40 06/19/16 15:08 36.3 77 17 125/78 100 11.0 Physical Exam General Appearance: no apparent distress Respiratory/Chest: + accessory muscle use, + pertinent finding (RR 8) Cardiovascular: + pertinent finding (radial pulse palpable but weak) Skin: + cyanosis Assessment and Plan 76 yo male with severe emphysema and neurofibromatosis admitted for pneumonia with sepsis. Patient elected for comfort measures with shared decision making with his NOK (friend) Tisha who has POA. Patient remains rested with morphine for respiratory distress, ativan for agitation and scopolamine patch in place. On examination this morning he does not appear suitable for transfer but will continue to monitor for hospice care as outpatient pending clinical course. Remains comfort care not for BiPAP, no intubation and DNR. Resident Physician Supervision Note: I interviewed and examined the patient. Discussed with Dr. Srivastava and agree with findings and plan as documented in the note. Any exceptions or clarifications are listed here: None Documented By: Flynn Holman appearing comfortable. no new problems by nursing. vitals noted nad breathign unlabored no accessory muscles pneumonia, abdominal pathology (probably biliary) - comfort care. appearing comfortable Resident Tracking Resident Involvement: Resident Care Provided Care Provided: Adult Hospital Medicine
[2016-06-20] MEDS: LORAZEPAM 2 MG/ML 1 ML VIAL IV PRN ×2 (15:01→18:03)
[2016-06-20] MEDS ORDERED: NALOXONE HCL 0.4 MG/1 ML VIAL/CARP IV PRN (18:15)
[2016-06-20] MEDS: MoRPHine SULFATE 1 MG/ML 50 ML PCA CASS IV PRN (18:25)
[2016-06-20] MEDS: SODIUM CHLORIDE 0.9% 1000ML 1,000 ML IV SCH (18:25)
[2016-06-20] MEDS ORDERED: NURSING DECISION MEDICATION ORDER SCH (18:30)
[2016-06-21] MEDS: GLYCOPYRROLATE INJ 0.2 MG/ML VIAL IV PRN ×2 (05:31→11:39)
[2016-06-21] MEDS: CHECK SCOPOLAMINE PATCH PLACEMENT SCH ×3 (08:42→16:07)
--- NOTE | 2016-06-21 17:14 | Progress Note ---
Subjective Date of Service: Jun 21, 2016. Subjective Pt evaluation today including: conversation w/ patient, physical exam, chart review, review of inpatient medication list nursing notes that pt has been a little more restless and at times moaning more today - had to give several PRN doses of morphine this AM no HPI or ROS obtainable from pt Problem List Medical Problems: (1) COPD (chronic obstructive pulmonary disease) Status: Acute (2) COPD exacerbation Status: Acute (3) Juares catheter problem Status: Acute (4) Left knee pain Status: Acute (5) Respiratory failure with hypoxia Status: Acute (6) Sepsis Status: Acute (7) Weakness Status: Acute Objective Vital Signs Date Time Temp Pulse Resp B/P Pulse Ox O2 Delivery O2 Flow Rate FiO2 06/21/16 16:00 Room Air 06/21/16 08:00 Nasal Cannula 2.0 06/21/16 00:00 Nasal Cannula 2.0 06/20/16 20:00 Nasal Cannula 2.0 Physical Exam General Appearance: + pertinent finding (mroe restless than prior few days, no overt pain when i am in the room) Neck: trachea midline Respiratory/Chest: no respiratory distress, no accessory muscle use Assessment and Plan pneumonia, abdominal pathology (presumed biliary) on comfort care -until this AM had been overall fairly comfortable- had to escalate to small basal rate of morphine yesterday due to frequent need for prns - follow through this AM - if still needing prn's frequently will need to increase basal rate further -continue to follow -obviously with need for morphine gtt - ongoing need for inpatient for comfort care Continued [facility] stay due to: multiple IV medications needed, home environment unsafe for pt
[2016-06-21] MEDS: SODIUM CHLORIDE 0.9% 1000ML 1,000 ML IV SCH (17:59)
[2016-06-22] MEDS: GLYCOPYRROLATE INJ 0.2 MG/ML VIAL IV PRN (07:56)
[2016-06-22] MEDS: LORAZEPAM 2 MG/ML 1 ML VIAL IV PRN (07:56)
[2016-06-22] MEDS: CHECK SCOPOLAMINE PATCH PLACEMENT SCH ×3 (07:57→15:57)
--- NOTE | 2016-06-22 14:09 | Progress Note ---
Subjective Date of Service: Jun 22, 2016. Subjective Pt evaluation today including: conversation w/ patient, physical exam, chart review, lab review, review of inpatient medication list no HPI or ROS obtainable. nursing notes that after a few prn doses of morphine this AM, he's been comfortable Problem List Medical Problems: (1) COPD (chronic obstructive pulmonary disease) Status: Acute (2) COPD exacerbation Status: Acute (3) Juares catheter problem Status: Acute (4) Left knee pain Status: Acute (5) Respiratory failure with hypoxia Status: Acute (6) Sepsis Status: Acute (7) Weakness Status: Acute Review of Systems unobtainable Objective Vital Signs Date Time Temp Pulse Resp B/P Pulse Ox O2 Delivery O2 Flow Rate FiO2 06/22/16 08:00 Nasal Cannula 2.0 06/22/16 00:00 Room Air 06/21/16 20:00 Room Air 06/21/16 16:00 Room Air Physical Exam General Appearance: no apparent distress Neck: trachea midline Respiratory/Chest: no respiratory distress, no accessory muscle use Skin: normal color Assessment and Plan pneumonia, abdominal pathology (presumed biliary) on comfort care -comfort care continues, appearing comfortable overall today -continue to follow -obviously with need for morphine gtt - ongoing need for inpatient for comfort care Continued [facility] stay due to: multiple IV medications needed, home environment unsafe for pt
[2016-06-22] MEDS ORDERED: MoRPHine SULFATE 2 MG/ML CARP IV PRN (14:15)
[2016-06-22] MEDS: MoRPHine SULFATE 1 MG/ML 50 ML PCA CASS IV PRN (17:14)
[2016-06-22] MEDS: SODIUM CHLORIDE 0.9% 1000ML 1,000 ML IV SCH (18:17)
[2016-06-22] MEDS: SCOPOLAMINE 1.5 MG TDSY TD SCH (20:34)
[2016-06-23] MEDS: CHECK SCOPOLAMINE PATCH PLACEMENT SCH ×2 (00:28→07:33)
--- NOTE | 2016-06-23 07:18 | SURGERY PROGRESS NOTE ---
DATE: 06/23/2016 SUBJECTIVE: Pancho is unresponsive. I cannot palpate a pulse and he is has agonal breathing at this time. MTDD
--- NOTE | 2016-06-23 10:17 | Family Medicine Progress Note ---
Progress Note Date of Service Jun 23, 2016. Subjective Additional Comments: Unable to obtain Medications Current Inpatient Medications Medications (Trade) Dose Ordered Sig/Anjum Route Start Time Stop Time Status Last Admin Dose Admin Ondansetron HCl (Zofran Inj) 4 mg Q4H PRN IV 06/18/16 20:15 07/18/16 20:14 Heparin Sodium (Porcine) (Heparin 10 Unit/ ml 5 ml Flush) 5 ml PRN PRN FLUSH 06/19/16 00:30 07/19/16 00:29 06/22/16 07:56 5 ML Glycopyrrolate (Robinul Inj) 0.2 mg Q4H PRN IV 06/19/16 08:15 07/19/16 08:14 06/22/16 07:56 0.2 MG Lorazepam 1 mg 1 mg Q2H PRN IV 06/19/16 21:15 07/19/16 21:14 06/22/16 07:56 1 MG Lorazepam/Syringe (Ativan Inj/ Syringe) 1 ml @ 1 mls/min Q1H PRN IV 06/19/16 22:00 07/19/16 21:59 06/19/16 21:36 1 MLS/MIN Scopolamine (Transderm-Scop Patch) 1.5 mg Q72H TD 06/19/16 21:15 07/19/16 21:14 06/22/16 20:34 1.5 MG Miscellaneous (Remove Transderm-Scop Patch) 1 ea Q72H N/A 06/22/16 21:15 07/22/16 21:14 06/22/16 20:33 1 EA Miscellaneous Information (Check Scopolamine Patch Placement) 1 ea QS N/A 06/20/16 00:00 07/20/16 00:00 06/23/16 07:33 1 EA Morphine Sulfate 50 mg 50 mg PRN PRN IV 06/20/16 18:15 07/04/16 18:14 06/22/16 17:14 50 MG Sodium Chloride (Nss 1000ml) 1,000 ml @ 30 mls/hr Q24H IV 06/20/16 18:06 07/20/16 18:05 06/22/16 18:17 30 MLS/HR Morphine Sulfate (MoRPHine SULFATE INJ) 2 mg Q15M PRN IV 06/22/16 14:15 07/06/16 14:14 Objective Vital Signs Date Time Temp Pulse Resp B/P Pulse Ox O2 Delivery O2 Flow Rate FiO2 06/23/16 08:00 Room Air 06/23/16 00:00 Room Air 06/22/16 20:00 Room Air 06/22/16 15:40 Room Air
--- NOTE | 2016-06-23 13:25 | Death Pronouncement Note ---
Pronouncement Note Date & Time of Jun 23, 2016. 1310 (Brittany Borges MD) Pronouncement At time of pronouncement the patients pupils were fixed and dilated, there was no spontaneous respiratory effort, no palpable pulse, no audible heart tones, and no response to pain or voice. (Brittany Borges MD) Resident Physician Supervision Note: I was present with Dr. Borges during the pronouncement and agree with her findings. I completed the certificate and gave it to the community center director on 4E nurses station. Documented By: Juanjose Eisenberg (Juanjose Eisenberg,D.O.)
--- NOTE | 2016-06-23 15:32 | Death Summary ---
Summary of Admission Date Jun 15, 2016 at 20:15 (Brittany Borges MD) Date & Time of Jun 23, 2016. 1310 (Brittany Borges MD) Cause of Sepsis /Pneumonia (Brittany Borges MD) Hospital Course 76 y/o M w/Hx advanced COPD, neurofibromatosis, BPH w/retention and chronic Juares. Presented from a nursing facility with a CC of SOB. Pt was notably hypoxic, hypotensive and lethargic on arrival to the ER. He required Bipap to maintain oxygenation. Initial CXR was consistent with a RLL pneumonia. His BP did respond to IVF however he appeared progressively lethargic and was transferred to the ICU for further management. Initial labs reveal leukocytosis and ARF. ABG reveals mixed acidosis. He was initially treated for sepsis source being the chest versus cholecystitis as his ultrasound of the abdomen had revealed an abnormal gallbladder with potential hemorrhage versus abnormal soft tissue with distended gallbladder lumen. General surgery was consulted but he was managed conservatively per his wishes For his hypoxic respiratory failure, he was maintained on BiPAP and treated with antibiotics for aspiration pneumonia and with steroids and DuoNeb's for COPD exacerbation cont but he continued to deteriorate and did not tolerate BiPAP and requested no intubation The patient elected for comfort measures with shared decision making with his NOK (friend) Tisha who has POA. He was made comfort measures only and was on morphine drip. was pronounced at 1310 after he was examined and found to be unresponsive without any pupillary reflexes, no heart sounds, no spontaneous breathing and no pulse. Dr. Eisenberg was present at the time of pronouncement and during the exam (Brittany Borges MD) Resident Physician Supervision Note: I was present with Dr. Borges during the history and exam. I discussed the case with the resident and agree with the findings and plan as documented in the note. Any exceptions or clarifications are listed here: [None] Documented By: Juanjose Eisenberg (Juanjose Eisenberg.,D.O.) Resident Tracking Resident Involvement: Resident Care Provided Care Provided: Adult [facility] (Birttany Borges MD)
== END 2016-06-23 16:54 | disposition expired | DRG 871 ==
LOC: ENRESERVTM → ENRESERVDT → EDBD 17:52 → C.EDB 17:54 → C.MSICU 20:15 → C.MED 06-17 18:02 → C.MSICU 06-17 19:49 → C.4E 06-18 19:56
PROVIDERS: ADMIT Internal Medicine; ATTEND Internal Medicine
PROC: 02HV33Z Insertion of Infusion Device into Superior Vena Cava, Percutaneous Approach (ICD-10-PCS; principal; 2016-06-16)
DX: A41.9 Sepsis, unspecified organism (principal); J69.0 Pneumonitis due to inhalation of food and vomit; J96.01 Acute respiratory failure with hypoxia; K81.0 Acute cholecystitis; Z51.5 Encounter for palliative care; N17.9 Acute kidney failure, unspecified; R64 Cachexia; J44.1 Chronic obstructive pulmonary disease with (acute) exacerbation; Z68.1 Body mass index [BMI] 19.9 or less, adult; E46 Unspecified protein-calorie malnutrition; B37.49 Other urogenital candidiasis; E87.2 Acidosis; K86.9 Disease of pancreas, unspecified; E86.0 Dehydration; E87.6 Hypokalemia; D64.9 Anemia, unspecified; E83.42 Hypomagnesemia; E83.39 Other disorders of phosphorus metabolism; N40.1 Benign prostatic hyperplasia with lower urinary tract symptoms; R33.8 Other retention of urine; Q85.00 Neurofibromatosis, unspecified; Z51.81 Encounter for therapeutic drug level monitoring; Z79.899 Other long term (current) drug therapy; Z66 Do not resuscitate; Z93.6 Other artificial openings of urinary tract status; Z91.81 History of falling; Z86.61 Personal history of infections of the central nervous system; Z87.01 Personal history of pneumonia (recurrent); Z87.891 Personal history of nicotine dependence